=== PATIENT | female | born 1995 | race Caucasian/White ===

== ENCOUNTER 2017-08-20 11:59 | Emergency (ER) | payer OTHER, SELFPAY ==
[2017-08-20 12:00] VITALS: BP 150/116; PULSE 127; RESP 22; TEMP 37.4; O2SAT 100; BMI 37.0
[2017-08-20 12:40] LABS: Absolute Lymphocyte Count 1.27 X10^3/ul (0.83-4.51); Absolute Neutrophil Count 15.5 X10^3/uL (2.0-7.7); Basophil# 0.02 X10^3/uL; Basophil% 0.1 % (0-1); Eosinophil# 0.03 X10^3/uL; Eosinophils% 0.2 % (0-5); Hematocrit 42.6 % (37-47); Hemoglobin 14.4 g/dl (12.0-15.0); Lymphocyte # 1.27 X10^3/ul (4.0); Mean Corp Hgb Conc 33.8 g/gl (32-36); Mean Corpuscular Hgb 28.5 pg (27.0-32.0); Mean Corpuscular Volume 84.4 fL (81-99); Mean Platelet Vol. 10.5 fl (6.2-12.0); Monocyte# 1.21 X10^3/uL; Monocyte% 6.7 % (0-10); Neutrophil # 15.52 X10^3/uL (2.7-7.7); Neutrophil % 85.9 % (47-70); Platelet Count 281 K/mm3 (150-450); RBC Distribution Width CV 12.9 % (11.6-14.6); RBC Distribution Width SD 38.8 fl (35.1-43.9); Red Blood Count 5.05 M/mm3 (4.2-5.4); White Blood Count 18.1 K/mm3 (4.4-11.0)
[2017-08-20 12:43] LABS: POSITIVE COUNT NO; POSITIVE DIFFERENTIAL NO; POSITIVE MORPHOLOGY NO
[2017-08-20 12:50] LABS: Anion Gap 11 (5-15); BUN 11 mg/dL (7-18); BUN/Creat Ratio 12.3 RATIO (10-20); Calcium,Total 9.3 mg/dL (8.5-10.1); Chloride 104 mmol/L (98-107); EST Glomerular Filtration Rate 82 mL/min (>60); Est Glom Filt Rate - Afr Amer 99 mL/min (>60); Estimated Creatinine Clearance 97.23 ml/min; Glucose 95 mg/dL (74-106); Potassium 3.6 mmol/L (3.5-5.1); Sodium Level 137 mmol/L (136-145)
[2017-08-20] MEDS: 0.9% Normal Saline 1,000 ML 1000 ML IV (12:52)
[2017-08-20] MEDS: Morphine 4 MG/ML Syringe IV (12:52)
[2017-08-20] MEDS: Ondansetron ODT 4 MG Tablet PO (12:55)
[2017-08-20 12:56] VITALS: PULSE 107; RESP 15; TEMP 38; O2SAT 99
[2017-08-20 13:04] LABS: Mucous, Urine 0 SEEN /hpf (<or=2+)
[2017-08-20 13:06] LABS: Color, Urine Yellow (Yellow); Glucose, Dipstick Normal (Normal); Ketone-Dipstick 15 mg/dl (Negative); Leukocyte Esterase-Dipstick 25 /ul (Negative); Nitrite-Dipstick Negative (Negative); Occult Blood-Urine 10 /ul (Negative); Protein-Dipstick 15 mg/dl (Negative); Urine Bilirubin Dipstick Negative (Negative); Urine Clarity Clear (Clear); Urine Urobilinogen Normal (Normal)
[2017-08-20 13:11] LABS: Bacteria RARE /hpf (None Seen); Red Blood Cells-Urine 0-5 SEEN /hpf (0-5); Squamous Epithelial Cells - UA 0-5 SEEN /hpf (5-10); White Blood Cells 0-5 SEEN /hpf (0-5)
[2017-08-20 13:22] VITALS: PULSE 112; RESP 15; O2SAT 100
--- NOTE | 2017-08-20 13:56 | CT_ITS ---
STUDY: CT ABDOMEN AND PELVIS WITHOUT CONTRAST REASON FOR EXAM: Female, 22 years old. Low abdominal pain RADIATION DOSAGE (If Supplied By Facility): CTDIvol = ( 19.71 ) mGy, DLP = ( 1137.76 ) mGycm TECHNIQUE: Transaxial images were obtained from the dome of the diaphragm to the symphysis pubis without oral contrast, and without intravenous contrast. Sagittal and coronal images were reconstructed. Individualized dose optimization techniques were used for this CT. COMPARISON: None. FINDINGS: There is a right middle lobe pulmonary nodule measuring 1.2 cm there is focal opacity is slightly nodular appearance in the right middle lobe. The visualized portions of the heart are within normal limits. Normal liver. Normal gallbladder and extrahepatic biliary system. Normal spleen. Normal pancreas. Normal bilateral adrenal glands. Normal right kidney. Normal left kidney. Normal visualized stomach. Normal small intestine. There is moderate stool in the colon. The appendix is vaguely visualized image #132. There are right lower quadrant nonspecific small lymph nodes measuring up to 1.1 cm. Normal abdominal aorta. Normal inferior vena cava. Normal retroperitoneum. Normal urinary bladder. Normal visualized uterus. There is a minimal small umbilical hernia containing fat. Normal osseous structures. CT/Abdomen/Pelvis without Cont IMPRESSION: There is partial visualization of a smudgy nodular infiltrate in the right middle lobe and a smudgy nodular focus. Recommend dedicated CT chest for chest x-ray to evaluate for pneumonia and/or other infiltrative nodular process. Otherwise there is mild constipation. There is no visualized renal ureteral bladder calculi. There is no visualized evidence of appendicitis. There is no free fluid there is no free air. Electronically Signed: Shayy Carlson MD at 14:53 EDT Tel , Service support ,
[2017-08-20] MEDS: AMOXICILLIN 500 MG CAPSULE PO (14:36)
--- NOTE | 2017-08-20 15:23 | ED.DCSUM_ITS ---
- ER Visit Summary Date of Service: 08/20/17 Chief Complaint: [Back and abdomen pain History of Present Illness: The patient is a 22 F [presents to the emergency department with complaint of back and abdomen pain, sore throat, cough, fever, and generally not feeling well. Patient states all her symptoms started this morning. Patient went to the urgent care and was referred to the emergency department. Patient's fever at home up to 103. Patient denies any urinary symptoms. Patient's had no vomiting although she has had nausea. No diarrhea.] Physical Examination: [HEENT-PERRLA, EOMI. Cranial nerves II through XII grossly intact. TMs clear. Mucous membranes moist. Patient has pharyngeal erythema with bilateral tonsillar exudates noted. Patient does have some slightly tender anterior adenopathy. No trismus on exam. Cardiovascular-regular rate and rhythm without murmur or ectopy Lungs-clear to auscultation, chest wall stable without crepitus or subcu emphysema Abdomen-normoactive bowel sounds, soft, nontender, no rebound or rigidity, no peritoneal signs. Extremities-intact ?4, normal range of motion, normal pulses, atraumatic] Test Results: [CBC with differential showed a white count of 18.4, hemoglobin 14.7, hematocrit 43, platelets 281. Chemistries unremarkable other than a slightly depressed potassium at 3.1. Urinalysis was normal. Strep screen was positive. CT scan of the abdomen and pelvis showed partial visualization of smudgy nodular infiltrate right middle lobe and smudgy nodular focus they recommended obtaining CT chest or an x-ray to evaluate for pneumonia or other inflict infiltrative nodular process. Otherwise there is mild constipation. There is no visualized renal or ureteral bladder calculi. There is no visualized evidence of appendicitis. There is no free fluid or free air.] Emergency Department Course and Treatment: [Patient was medicated with amoxicillin and was given a liter normal same fluid bolus. Patient was given 4 mg of morphine and 4 mill grams of Zofran.] Treatment Plan: [At this point I do not feel any further imaging is indicated as patient is not had any significant cough. Patient will be started on antibiotics and I feel patient can follow-up as an outpatient with her primary care physician should respiratory symptoms not resolve.] Patient will be given a prescription for amoxicillin and [place] for pain. Disposition: [Discharged to home in stable condition] Impression: [Strep pharyngitis] This note was generated with Mesh[employer] dictation software. It may contain incorrect words, spelling, and punctuation that were not noted in review of the chart prior to signing ED Disposition - Plan for ED Patient: Chief Complaint: General Illness Referrals: Jett Miller DO [Primary Care Provider] -
--- NOTE | 2017-08-20 15:23 | ED.DEP ---
ED Disposition - Plan for ED Patient: Chief Complaint: General Illness Instructions: ED Strep Pharyngitis Conf Prescriptions: Hydrocodone Bitart/Apap 5-325 [[place] 5MG-325MG] 1 tab PO Q4H PRN PRN 2 Days #10 tab PRN Reason: Pain Amoxicillin 500 mg PO TID #30 tab Referrals: Jett Miller DO [Primary Care Provider] - 3-5 Days
[2017-08-20 15:44] VITALS: BP 115/68; PULSE 99; RESP 18; O2SAT 100
--- NOTE | 2017-08-21 15:43 | ED.RN ---
MOM CALLED IN ASKING FOR ADDITIONAL WORK NOTE. SPOKE TO DR BECKER. DR BECKER ADVISED IT WAS OK TO WRITE WORK EXCUSE UNTIL MONDAY. INFORMED MOM, MOM WILL INTERNAL CONSULTANT NOTE AT TRIAGE DESK.
== END 2017-08-20 15:46 | disposition home or self-care (01) ==
PROVIDERS: Emergency Provider Emergency Medicine; Family Provider Student in an Organized Health Care Education/Training Program; PCP Student in an Organized Health Care Education/Training Program
DX: J02.0 Streptococcal pharyngitis (principal); M54.9 Dorsalgia, unspecified; R10.9 Unspecified abdominal pain; K59.00 Constipation, unspecified
CPT/HCPCS: 74176; 80048; 81001; 85025; 87077; 87880; 96361; 96374; 96375; 99284

== ENCOUNTER 2019-04-16 12:31 | Emergency (ER) | payer OTHER, SELFPAY ==
[2019-04-16 12:32] VITALS: BP 155/98; PULSE 99; RESP 16; TEMP 35.7; BMI 35.4
--- NOTE | 2019-04-16 13:07 | EKG12_ITS ---
Test Reason : DIZZINESS Blood Pressure : / mmHG Vent. Rate : 063 BPM Atrial Rate : 063 BPM P-R Int : 136 ms QRS Dur : 084 ms QT Int : 422 ms P-R-T Axes : 013 008 005 degrees QTc Int : 431 ms Normal sinus rhythm with sinus arrhythmia Nonspecific T wave abnormality Abnormal ECG Confirmed by JOURDAN ODEN, BRODERICK ([id number]), editor farm journal TAMIKO ACOSTA ([id number]) on 04/19/2019 11:39:13 AM Referred By: ANGIE Confirmed By:CEE SOLIMAN MD
--- NOTE | 2019-04-16 13:08 | ED.VIS.GEN ---
History of Present Illness Chief Complaint: Dizziness Informant: Patient Narrative: Patient reports intermittent episodes of lightheadedness/near syncope. She originally uses the word dizziness to describe her feelings. She states that Monday she was walking through the [employer] and she got very nauseated very warm and then lightheaded. Eventually the symptoms abated. Yesterday she eventually had one episode of vomiting. Describes the vomiting as bilious in nature. She states that she has not felt her heart beating very irregularly during the episodes. She says again is very episodic and in between she seems okay. She has had a runny nose and cough for the past several weeks. No fevers. No diarrhea. She is otherwise been eating and drinking okay. No rashes. Past Medical History - Allergies and Home Meds Allergies/Adverse Reactions: Allergies No Known Allergies Allergy (Verified 04/16/19 12:34) Primary Care Physician: Jett Miller DO [Primary Care Provider] - Smoking Status: Never smoker Review of Systems General: Denies: Chills, Fever, Sweats Eyes: Denies: Visual changes - bilaterally, Diplopia ENT: Reports: Rhinorrhea. Denies: Sore throat Cardiovascular: Reports: - - Lightheadedness. Denies: Chest pain, Palpitations, Heart racing Respiratory: Reports: Cough. Denies: Dyspnea, Dyspnea on exertion Gastrointestinal: Reports: Nausea, Vomiting. Denies: Abdominal pain, Diarrhea, Melena, Hematochezia Genitourinary: Denies: Dysuria, Hematuria, Frequency Musculoskeletal: Denies: Back pain, Extremity Pain Skin: Denies: Rash, Wounds Neurological: Denies: Headache, Weakness, Numbness Physical Exam Vital Signs/Narrative: Vital Signs Temp Pulse Resp BP 04/16/19 12:32 96.2 F L 99 16 155/98 H Diagnostic/Tx/Re-eval - EKG Initial EKG Interpretation: Sinus Rhythm - EKG shows a sinus rhythm with sinus arrhythmia rate of 63. - Medical Decision Making Chest x-ray shows a normal mediastinal silhouette. Basic labs were normal. She had no events on the monitor. This sounds like a vagal near syncope. However the stimulus is not clear. She always has nausea associated with this lightheadedness. This point patient be discharged home with instructions to follow-up with her PCP. We talked about possibilities of further work-up including occluding Holter monitor and echocardiogram. ED Disposition - Plan for ED Patient: Disposition: Home or Assisted Living Diagnosis: Vasovagal near syncope Instructions: NEAR SYNCOPE, Vasovagal Referrals: Jett Miller DO [Primary Care Provider] - As soon as possible
--- NOTE | 2019-04-16 13:10 | NURSING ---
NO OLD EKGS
[2019-04-16 13:22] LABS: Absolute Lymphocyte Count 1.91 X10^3/uL (0.83-4.51); Absolute Neutrophil Count 1.9 X10^3/uL (2.0-7.7); Basophil# 0.01 X10^3/uL; Basophil% 0.2 % (0-1); Eosinophil# 0.04 X10^3/uL; Eosinophils% 0.9 % (0-5); Hemoglobin 13.5 g/dL (12.0-15.0); Lymphocyte # 1.91 X10^3/ul (4.0); Lymphocyte % 44.9 % (19-41); Mean Corp Hgb Conc 32.9 g/dL (32-36); Mean Corpuscular Volume 84.9 fL (81-99); Mean Platelet Vol. 10.2 fl (6.2-12.0); Monocyte# 0.36 X10^3/uL; Monocyte% 8.5 % (0-10); NRBC Flagged by Analyzer 0 % (0-5); Neutrophil # 1.92 X10^3/uL (2.7-7.7); Neutrophil % 45.3 % (47-70); Platelet Count 263 K/mm3 (150-450); RBC Distribution Width CV 12.4 % (11.6-14.6); RBC Distribution Width SD 38.2 fl (35.1-43.9); Red Blood Count 4.83 M/mm3 (4.2-5.4); White Blood Count 4.3 K/mm3 (4.4-11.0)
[2019-04-16 13:30] LABS: Internal QC Validated? YES +Cl - CLEAR BKGD; Pregnancy, Serum, hCG Quali. NEGATIVE Negative
[2019-04-16 13:32] VITALS: BP 123/80; PULSE 60; RESP 16; O2SAT 97
[2019-04-16 13:39] LABS: ALB/GLOB Ratio 0.9 RATIO (0.9-2.4); AST(SGOT) 23 U/L (15-37); Alanine Aminotransfer ALT/SGPT 29 U/L (13-56); Albumin, Serum 3.4 g/dL (3.2-5.0); Alkaline Phosphatase 54 U/L (45-117); Anion Gap 7 (5-15); BUN 11 mg/dL (7-18); BUN/Creat Ratio 14.6 RATIO (10-20); Calcium,Total 8.6 mg/dL (8.5-10.1); Chloride 108 mmol/L (98-107); Creatinine, Serum 0.75 mg/dL (0.55-1.02); EST Glomerular Filtration Rate 99 mL/min (>60); Est Glom Filt Rate - Afr Amer 120 mL/min (>60); Estimated Creatinine Clearance 119.83 ml/min; Globulin 3.9 g/dL (2.2-4.2); Glucose 83 mg/dL (74-106); Potassium 3.7 mmol/L (3.5-5.1); Protein, Total 7.3 g/dL (6.4-8.2); Sodium Level 141 mmol/L (136-145)
--- NOTE | 2019-04-16 13:46 | RAD_ITS ---
STUDY: X-RAY CHEST REASON FOR EXAM: Female, 23 years old. NEAR SYNCOPAL, DIZZINESS AND SOB TECHNIQUE: PA and lateral views of the chest. COMPARISON: None. FINDINGS: EKG electrodes are seen. The lungs are clear and expanded. Azygos lobe. This is a normal variant. There is no demonstrated pleural abnormality. Normal size heart. Normal mediastinum and rimma. Normal visualized pulmonary arteries. Normal visualized aortic arch and descending thoracic aorta. Normal visualized thoracic spine. Normal visualized ribs, clavicles, and shoulders. There is no demonstrated abnormality of the visualized soft tissue structures of the upper abdomen. RAD/Chest PA and Lateral IMPRESSION: Normal x-ray examination of the chest. Electronically Signed: Barrera Monge, at 14:01 EDT , Service support ,
[2019-04-16 14:51] VITALS: BP 125/91; PULSE 75; RESP 19; O2SAT 95
== END 2019-04-16 14:58 | disposition home or self-care (01) ==
PROVIDERS: Emergency Provider Emergency Medicine; PCP Student in an Organized Health Care Education/Training Program
DX: R55 Syncope and collapse (principal); J34.89 Other specified disorders of nose and nasal sinuses; R05 Cough
CPT/HCPCS: 71046; 80053; 84484; 84703; 85025; 93005; 99284; A4216

== ENCOUNTER 2020-10-07 22:42 | Emergency (ER) | payer OTHER, SELFPAY ==
[2020-10-07 22:43] VITALS: BP 121/78; PULSE 107; RESP 16; TEMP 36.9; O2SAT 98; BMI 35.4
--- NOTE | 2020-10-07 23:27 | EKG12_ITS ---
Test Reason : DYSRHYTHMIA Blood Pressure : / mmHG Vent. Rate : 088 BPM Atrial Rate : 088 BPM P-R Int : 134 ms QRS Dur : 086 ms QT Int : 344 ms P-R-T Axes : 020 013 010 degrees QTc Int : 416 ms Normal sinus rhythm Nonspecific T wave abnormality Abnormal ECG Confirmed by JOURDAN ODEN, BRODERICK ([id number]), assignment desk editor LOUIE SILVEIRA ([id number]) on 10/08/2020 1:00:58 PM Referred By: CRISTIAN Confirmed By:CEE SOLIMAN MD
[2020-10-07 23:43] LABS: Absolute Lymphocyte Count 0.78 X10^3/uL (0.83-4.51); Absolute Neutrophil Count 4.6 X10^3/uL (2.0-7.7); Basophil# 0.02 X10^3/uL; Basophil% 0.3 % (0-1); Eosinophil# 0.01 X10^3/uL; Eosinophils% 0.2 % (0-5); Hematocrit 44.3 % (37-47); Hemoglobin 14.9 g/dL (12.0-15.0); Lymphocyte # 0.78 X10^3/ul (0.83-4.51); Lymphocyte % 12.8 % (19-41); Mean Corp Hgb Conc 33.6 g/dL (32-36); Mean Corpuscular Hgb 28.2 pg (27.0-32.0); Mean Corpuscular Volume 83.9 fL (81-99); Mean Platelet Vol. 10.5 fl (6.2-12.0); Monocyte# 0.73 X10^3/uL; Monocyte% 11.9 % (0-10); NRBC Flagged by Analyzer 0 % (0-5); Neutrophil # 4.56 X10^3/uL (2.7-7.7); Neutrophil % 74.6 % (47-70); Platelet Count 284 K/mm3 (150-450); RBC Distribution Width CV 12.5 % (11.6-14.6); RBC Distribution Width SD 38.3 fl (35.1-43.9); Red Blood Count 5.28 M/mm3 (4.2-5.4); White Blood Count 6.1 K/mm3 (4.4-11.0)
[2020-10-07 23:45] VITALS: BP 113/73; BP 116/78; BP 90/45; PULSE 107; PULSE 93; PULSE 96
[2020-10-08 00:01] LABS: Anion Gap 7 (5-15); BUN 9 mg/dL (7-18); BUN/Creat Ratio 9.2 RATIO (10-20); Calcium,Total 9.4 mg/dL (8.5-10.1); Chloride 105 mmol/L (98-107); Creatinine, Serum 0.97 mg/dL (0.55-1.02); EST Glomerular Filtration Rate 73 mL/min (>60); Est Glom Filt Rate - Afr Amer 88 mL/min (>60); Estimated Creatinine Clearance 87.88 ml/min; Glucose 92 mg/dL (74-106); Potassium 3.7 mmol/L (3.5-5.1); Sodium Level 136 mmol/L (136-145); Troponin-I HS 3 pg/mL (3.0-54.0)
[2020-10-08 00:04] LABS: Mucous, Urine 0 SEEN /hpf (<or=2+); Red Blood Cells-Urine 0 SEEN /hpf (0-5)
[2020-10-08 00:06] LABS: Color, Urine Yellow (Yellow); Glucose, Dipstick Normal (Normal); Ketone-Dipstick 5 mg/dl (Negative); Leukocyte Esterase-Dipstick 500 /ul (Negative); Nitrite-Dipstick Negative (Negative); Occult Blood-Urine 10 /ul (Negative); Protein-Dipstick 30 mg/dl (Negative); Urine Bilirubin Dipstick Negative (Negative); Urine Clarity Sl. Cloudy (Clear); Urine Urobilinogen 4 mg/dl (Normal)
[2020-10-08 00:07] LABS: Internal QC Validated? YES +Cl - CLEAR BKGD; Pregnancy, Urine Negative Negative
[2020-10-08 00:09] LABS: D-Dimer Quantitative (DVT/PE) <= 0.27 FEU/ug/m (0.27-0.49)
[2020-10-08 00:21] LABS: Squamous Epithelial Cells - UA 10-25 SEEN /hpf (5-10); White Blood Cells 10-25 SEEN /hpf (0-5)
[2020-10-08 00:22] LABS: Bacteria 1+ /hpf (None Seen)
--- NOTE | 2020-10-08 00:57 | EX.ED.DYSGE1 ---
HPI History of Present Illness Chief Complaint: Syncope Associated Symptoms Associated Symptoms ED: cough Narrative Narrative: Patient has been having myalgias subjective fevers and chills since yesterday. Today she got up to get in the shower, she works veterinary hospital shift lead, and she passed out. She does not remember having any prodromal symptoms. She passed out in the shower and fell onto her left hip which is sore but she has been able to ambulate since then without feeling lightheaded. She feels malaise. She denies having cough or shortness of breath or diarrhea. She was not vaccinated for Covid. PFSH PFSH no medical history Home Medications NK 10/07/20 [History Last Taken Unknown] Allergy/AdvReac Type Severity Reaction Status Date / Time No Known Allergies Allergy Verified 10/07/20 22:46 Social History Smoking Status: Never smoker ROS ROS ED Constitutional Constitutional ED: Reports body ache(s), chills, fatigue, fever(s) and malaise; Denies headache(s) Eyes Eyes: Denies change in vision or diplopia ENT ENT ED: Denies rhinorrhea or sore throat Cardiovascular Cardiovascular: Denies chest pain or palpitations Respiratory/Chest Respiratory/Chest: Denies cough, dyspnea or dyspnea on exertion Gastrointestinal Gastrointestinal: Denies abdominal pain, diarrhea, nausea or vomiting Genitourinary Genitourinary ED: Reports other Details: Patient had a mild menstrual cycle 3 days ago, bleeding is stopped, she states that was the normal time for her expected cycle. ; Denies dysuria or hematuria Musculoskeletal Musculoskeletal: Reports myalgias and other Details: Soreness left hip ; Denies back pain or neck pain Integumentary Denies abscess or rash Neurologic Neurologic: Denies headache(s), paresthesias or weakness Psychiatric Psychiatric: Denies anxiety or suicidal thoughts EXAM Physical Exam Const Vital Signs: 10/07/20 22:43 10/07/20 23:45 Temperature 98.5 F Temperature Source Temporal Pulse Rate 107 H Pulse Rate [Lying] 93 Pulse Rate [Sitting] 96 Pulse Rate [Standing] 107 H Respiratory Rate 16 Blood Pressure 121/78 H Blood Pressure [Lying] 116/78 Blood Pressure [Sitting] 113/73 Blood Pressure [Standing] 90/45 L Blood Pressure Mean 92 Blood Pressure Mean [Lying] 90 Blood Pressure Mean [Sitting] 86 Blood Pressure Mean [Standing] 60 Pulse Ox 98 Oxygen Delivery Method Room Air Positive well nourished and well developed Constitutional Narrative: Malaised-appearing, no distress General Appearance ED: well developed and NAD HEENT Reports moist mucous membranes normocephalic and atraumatic Eyes PERRL and EOMs intact bilaterally Neck full ROM, no lymphadenopathy and supple Resp normal respiratory effort and clear to auscultation bilaterally Cardio regular rate, regular rhythm and no murmurs Rate: Negative for tachycardic GI non-tender and non-distended Auscultation: normoactive bowel sounds Palpation: soft Back/Spine no CVA tenderness General Back: other FROM Extremity normal to inspection and no calf tenderness General Extremety ED: Negative for edema, pulses abnormal or tenderness General Extremity: Negative for edema or pulses abnormal Neuro oriented x3, CN's II-XII intact bilaterally and no sensory deficits noted Sensorium / Orientation: awake and alert Motor Exam: strength 5/5 throughout Skin no rashes or lesions noted and no wounds MDM MDM MDM Narrative Medical decision making narrative: Patient's tests returned unremarkable with the following exceptions: Urinalysis showing 500 leukocyte esterase and pyuria without urinary symptoms, Covid positive. Of note her EKG, troponin, and D-dimer were all negative/normal. Patient's orthostatics were officially negative, but borderline positive. She was also offered some IV fluids, but they declined and she feels well enough to stand and walk and will drink plenty of fluids at home. Her urine will be sent for culture and treated only if it returns abnormal/positive. She is given appropriate instructions with regards to Covid and reasons to return. It was noted at discharge that the patient's BMI is 35.4 making her a candidate for monoclonal antibody infusion for COVID-19 for which she was referred. Lab Data Attestation: I reviewed the patient's lab results. Labs: Laboratory Results - last 24 hr 10/07/20 10/07/20 10/07/20 23:12 23:12 23:50 WBC 6.1 RBC 5.28 Hgb 14.9 Hct 44.3 MCV 83.9 MCH 28.2 MCHC 33.6 RDW Std Deviation 38.3 RDW Coeff of Mario 12.5 Plt Count 284 MPV 10.5 Immature Gran % (Auto) 0.200 Neut % (Auto) 74.6 H Lymph % (Auto) 12.8 L [place] % (Auto) 11.9 H Eos % (Auto) 0.2 Baso % (Auto) 0.3 Absolute Neuts (auto) 4.6 Absolute Lymphs (auto) 0.78 L Nucleated RBC % 0 D-Dimer Quant (PE/DVT) <= 0.27 Sodium 136 Potassium 3.7 Chloride 105 Carbon Dioxide 24.0 Anion Gap 7 BUN 9 Creatinine 0.97 Estim Creat Clear Calc 87.88 Est GFR (MDRD) Af Amer 88 Est GFR (MDRD) Non-Af 73 BUN/Creatinine Ratio 9.2 L Glucose 92 Calcium 9.4 Troponin I High Sens 3 Urine Color Urine Clarity Urine pH Ur Specific [place] Urine Protein Urine Glucose (UA) Urine Ketones Urine Occult Blood Urine Nitrite Urine Bilirubin Urine Urobilinogen Ur Leukocyte Esterase Urine RBC Urine WBC Ur Squamous Epith Cells Urine Bacteria Urine Mucus Urine Test 10/08/20 00:00 WBC RBC Hgb Hct MCV MCH MCHC RDW Std Deviation RDW Coeff of Mario Plt Count MPV Immature Gran % (Auto) Neut % (Auto) Lymph % (Auto) [place] % (Auto) Eos % (Auto) Baso % (Auto) Absolute Neuts (auto) Absolute Lymphs (auto) Nucleated RBC % D-Dimer Quant (PE/DVT) Sodium Potassium Chloride Carbon Dioxide Anion Gap BUN Creatinine Estim Creat Clear Calc Est GFR (MDRD) Af Amer Est GFR (MDRD) Non-Af BUN/Creatinine Ratio Glucose Calcium Troponin I High Sens Urine Color Yellow Urine Clarity Sl. Cloudy Urine pH 7.0 Ur Specific Dick[place] 1.010 Urine Protein 30 H Urine Glucose (UA) Normal Urine Ketones 5 H Urine Occult Blood 10 H Urine Nitrite Negative Urine Bilirubin Negative Urine Urobilinogen 4 H Ur Leukocyte Esterase 500 H Urine RBC 0 SEEN Urine WBC 10-25 SEEN Ur Squamous Epith Cells 10-25 SEEN Urine Bacteria 1+ Urine Mucus 0 SEEN Urine Test Negative EKG Initial EKG: Attestation: I personally reviewed and interpreted this EKG as follows: Interpretation: Sinus Rhythm, No Acute Injury Pattern and Non-Specific ST Changes (precord) Discharge Plan Triage Chief Complaint: Syncope ED Provider: Bala Sargent Dx/Rx/DC Orders Clinical Impression: Syncope, COVID-19, Contusion of hip, left Instructions: Coronavirus Disease 2019 (COVID-19): Caring for Yourself or Others, ED - COVID Monoclonal AB Infusion ... Prescriptions: No Action NK RF: 0 Other Ambulatory Orders: COVID Outpatient Monoclonal Antibody Referral (Routine) Location: None Selected Ordered By: Dr. Bala Sargent Primary Care Provider: Jett Miller Referrals: Jett Miller DO [Primary Care Provider] - As Needed Activity Restrictions/Additional Instructions: You were referred for possible monoclonal antibody infusion therapy to prevent Covid from progressing to moderate-severe disease requiring hospitalization. If you are a candidate you will be contacted to get the infusion as an outpatient it is not given in the emergency department. Try to get a home portable pulse oximeter and closely watch her oxygen levels periodically. If you stay below 90% for more than a minute or so, and/or you are feeling like your breathing is getting worse, return to the emergency department for further evaluation. Disposition Disposition: Home, Self Care
[2020-10-08 01:12] VITALS: BP 114/60; PULSE 82; RESP 16; O2SAT 96
== END 2020-10-08 01:13 | disposition home or self-care (01) ==
PROVIDERS: Emergency Provider Emergency Medicine; PCP Student in an Organized Health Care Education/Training Program
DX: U07.1 COVID-19 (principal); R55 Syncope and collapse; S70.02XA Contusion of left hip, initial encounter; W18.2XXA Fall in (into) shower or empty bathtub, initial encounter; Y93.E1 Activity, personal bathing and showering; Y92.9 Unspecified place or not applicable
CPT/HCPCS: 80048; 81001; 81025; 84484; 85025; 85379; 87086; 87088; 87426; 93005; 99283; A4216

== ENCOUNTER 2020-11-22 22:29 | Emergency (ER) | payer OTHER, SELFPAY ==
[2020-11-22 22:29] VITALS: BP 140/81; PULSE 66; RESP 16; TEMP 36.1; O2SAT 99; BMI 36.0
--- NOTE | 2020-11-22 22:58 | RAD_ITS ---
STUDY: X-RAY - CERVICAL SPINE REASON FOR EXAM: Female, 25 years old. Injury/Pain TECHNIQUE: 3 view(s) of the cervical spine were obtained. COMPARISON: None FINDINGS: Normal anterior atlantoaxial articulation. Normal odontoid process. There is reversal of the normal cervical lordosis. Normal vertebral bodies and endplates. Normal disc space heights. Normal visualized intervertebral neuroforamina. The soft tissue structures are unremarkable. RAD/Cerv Spine 2 or 3 Views IMPRESSION: No acute findings. Electronically Signed: Oleg Christina DO at 23:13 EDT Tel , Service support ,
[2020-11-22] MEDS: Morphine 4 MG/ML Syringe IM (22:59)
--- NOTE | 2020-11-22 23:26 | EDS_ITS ---
HPI History of Present Illness Chief Complaint: Other, Pain/Inj Informant: patient Onset/Context/Timing Onset: Yesterday Mechanism/Context: Fall Quality of Pain: Sharp and Aching Location: Neck and upper thoracic Worsened by: Movement Relieved by: Nothing Associated Symptoms Associated Symptoms: Negative for Parasthesias, Weakness, Loss of function, Inability to ambulate, Loss of consciousness and Amnesia Narrative Narrative: Patient presents with neck pain that began after a fall yesterday. Patient states her pain is worse today. Patient states she was running when she fell. Patient states the pain is mainly over her neck and upper back and into both shoulders. Patient describes the pain is constant aching but sharp at times. Patient states her pain is worse with any movement. Patient denies any paresthesias or weakness. Patient denies any loss of consciousness with the fall. Patient does admit to a headache in the occipital area. PFSH PFSH Medical History no medical history no medical history Home Medications cyclobenzaprine 10 mg PO QHS PRN PRN #5 tablet 11/22/20 [Rx Last Taken Unknown] hydrocodone-acetaminophen 1 tab PO Q6H PRN PRN 3 Days #10 tablet 11/22/20 [Rx Last Taken Unknown] Allergy/AdvReac Type Severity Reaction Status Date / Time No Known Allergies Allergy Verified 11/22/20 22:31 Surgical History no surgical history no surgical history Social History Smoking Status: Never smoker ROS ROS ED Constitutional Constitutional ED: Denies chills or fever(s) Eyes Eyes: Denies blurry vision or change in vision ENT ENT ED: Denies rhinorrhea or sore throat Cardiovascular Cardiovascular: Denies chest pain or palpitations Respiratory/Chest Respiratory/Chest: Denies cough or dyspnea Gastrointestinal Gastrointestinal: Denies nausea or vomiting Genitourinary Genitourinary ED: Denies dysuria or hematuria Musculoskeletal Musculoskeletal: Reports back pain and neck pain Integumentary Denies abscess or rash Neurologic Neurologic: Reports headache(s); Denies weakness Allergic/Immunologic Allergic/Immunologic ED: Denies mouth swelling or urticaria EXAM Physical Exam Const Vital Signs: 11/22/20 22:29 Temperature 96.9 F L Temperature Source Temporal Pulse Rate 66 Respiratory Rate 16 Blood Pressure 140/81 H Blood Pressure Mean 100 Pulse Ox 99 Positive well nourished, well developed and obese General Appearance ED: well developed Nutritional Appearance: obese Neck Neck Narrative: There is some spasm of the cervical paraspinal muscles bilaterally. There is midline tenderness. There is no bony crepitance or step- off. There is no edema or ecchymosis. General: tenderness Back/Spine Back/Spine Narrative: There is also tenderness over the upper thoracic spine and paraspinal muscles. There is no bony crepitance or step-off. Range of motion was limited in all motions of the upper thoracic spine secondary to pain. Strength is 5/5 bilateral knee upper and lower extremities. There are no sensory deficits. Thoracic Spine / Upper Back: thoracic spinal tenderness T1, T2, T3 and T4 Neuro oriented x3, CN's II-XII intact bilaterally, moves all extremities, no focal motor deficits and no sensory deficits noted Jackson Coma Scale: document GCS findings Spontaneous Obeys Commands Oriented 15 Sensorium / Orientation: alert Psych mental status grossly normal MDM MDM MDM Narrative Medical decision making narrative: Patient was given a dose of morphine here. X -rays of the cervical spine were obtained. There are 3 views. On my interpretation, there is no acute fracture or dislocation. There is no soft tissue swelling. Radiologist also interpreted the x-rays and agrees. Patient was given a prescription for [place] and Flexeril. Patient was instructed to use ice to the area. Patient was instructed to follow-up with her primary care physician in 3 to 5 days. Patient understood and was agreeable with the plan. All questions were answered. Radiography Diagnostic Testing: Clinical Impression(s) from Imaging Studies Cervical Spine X-Ray 11/22/20 22:58 IMPRESSION: No acute findings. Electronically Signed: Oleg Christina DO at 23:13 EDT Tel , Service support , Discharge Plan Triage Chief Complaint: Other, Pain/Inj ED Provider: Maikel Bellamy Dx/Rx/DC Orders Clinical Impression: Acute cervical myofascial strain Instructions: ED Neck Sprain or Strain Prescriptions: New cyclobenzaprine [cyclobenzaprine] 10 MG tablet 10 mg PO QHS PRN PRN (Reason: Muscle Spasm) Qty: 5 RF: 0 hydrocodone-acetaminophen [hydrocodone-acetaminophen] 1 TABLET tablet 1 tab PO Q6H PRN PRN (Reason: Pain) 3 Days Qty: 10 RF: 0 Primary Care Provider: Jett Miller Referrals: Jett Miller DO [Primary Care Provider] - 3-5 Days Disposition Disposition: Home, Self Care
[2020-11-22 23:55] VITALS: BP 128/67; PULSE 87; RESP 18
== END 2020-11-22 23:57 | disposition home or self-care (01) ==
PROVIDERS: Emergency Provider Emergency Medicine; PCP Student in an Organized Health Care Education/Training Program
DX: S16.1XXA Strain of muscle, fascia and tendon at neck level, initial encounter (principal); W19.XXXA Unspecified fall, initial encounter; Y93.02 Activity, running; Y92.9 Unspecified place or not applicable; E66.9 Obesity, unspecified; Z68.36 Body mass index [BMI] 36.0-36.9, adult
CPT/HCPCS: 72040; 96372; 99282

== ENCOUNTER 2022-04-15 00:02 | Emergency (ER) | payer OTHER, SELFPAY ==
[2022-04-15 00:03] VITALS: BP 141/89; PULSE 72; RESP 16; TEMP 36.7; O2SAT 100; BMI 33.5
--- NOTE | 2022-04-15 01:27 | ED.VIS.DENTA ---
HPI History of Present Illness Chief Complaint: Dental Narrative Narrative: 26-year-old female presenting with right-sided maxillary dental pain and right-sided facial swelling. She notes that she has a cracked tooth in this region. She has a dental follow-up next Monday. She states the pain is increasing. She now has facial swelling. She has tried Tylenol and ibuprofen without relief. She has now developed some irritation to the left lower gums she wants to have assessed as well. No trouble breathing or swallowing. No fevers. No nausea or vomiting. [facility] Medical History Hx of migraines Home Medications cyclobenzaprine 10 mg tablet 10 mg PO QHS PRN PRN Muscle Spasm #5 TABLETS 11/22/20 [Rx Last Taken Unknown] hydrocodone-acetaminophen 5-325mg 5mg-325mg 1 tab PO Q6H PRN PRN Pain 3 days #10 TABLETS 11/22/20 [Rx Last Taken Unknown] amoxicillin 875 mg-potassium clavulanate 125 mg tablet 1 tab PO BID #20 tabs 04/15/22 [Rx Last Taken Unknown] hydrocodone-acetaminophen 5-325mg 5mg-325mg 1 tab PO Q6H 3 days #12 TABLETS 04/15/22 [Rx Last Taken Unknown] Allergy/AdvReac Type Severity Reaction Status Date / Time No Known Allergies Allergy Verified 04/15/22 00:06 Social History Smoking Status: Never smoker ROS [facility] ED Constitutional Constitutional ED: Denies chills, fever(s) or sweats Eyes Eyes: Denies blurry vision or change in vision ENT ENT ED: Reports other Details: Dental pain ; Denies ear pain Cardiovascular Cardiovascular: Denies chest pain, palpitations or racing heartbeat Respiratory/Chest Respiratory/Chest: Denies cough, dyspnea or sputum Gastrointestinal Gastrointestinal: Denies abdominal pain, constipation, diarrhea, nausea or vomiting Genitourinary Genitourinary ED: Denies dysuria, hematuria or urinary frequency Musculoskeletal Musculoskeletal: Denies arthralgias, myalgias or neck pain Integumentary Denies abscess, Abrasions or rash Neurologic Neurologic: Denies headache(s), paresthesias or weakness Psychiatric Psychiatric: Denies anxiety, depression, suicidal ideation or suicidal thoughts Endocrine Endocrinology: Denies polydipsia or polyuria EXAM Physical Exam Const Vital Signs: 04/15/22 00:03 Temperature 98.0 F Temperature Source Temporal Pulse Rate 72 Respiratory Rate 16 Blood Pressure 141/89 H Blood Pressure Mean 106 Pulse Ox 100 Oxygen Delivery Method Room Air Positive well nourished General Appearance ED: NAD HEENT normocephalic Face and Sinus: facial edema right Nose: external nose normal Mouth ED: Yes lips normal, Yes tongue normal, Yes salivary gland normal, No drooling, No trismus and No restricted motion Mouth: lips normal, tongue normal, salivary gland normal, No drooling, No trismus and No restricted motion Teeth and Gingiva: abnormal tooth and associated gingiva Positive for tenderness (Tooth #15 tender to percussion.) and gingiva abnormal Positive for gingival edema (Small area of edema located adjacent to tooth #35. No fluctuance. No drainage.) Eyes PERRL Neck no lymphadenopathy and supple General: normal visual inspection; Negative for anterior neck swelling or submandibular swelling Resp normal respiratory effort Neuro oriented x3 and CN's II-XII intact bilaterally Sensorium / Orientation: alert Motor Exam: strength 5/5 throughout Psych mental status grossly normal MDM MDM MDM Narrative Medical decision making narrative: Patient with dental pain. I suspect she has an apical infection at tooth #15. The gingiva around this area looks looks okay however. The area of concern on the gingiva is adjacent to tooth #35. There is no percussion tenderness to this tooth. There is a small area which is red and tender but without fluctuance. We will start the patient on Augmentin. She is also given Smiley for pain. Return precautions discussed. Impression: 1. Dental infection 2. Gingivitis Discharge Plan Triage Chief Complaint: Dental ED Provider: Bruce Mercado Dx/Rx/DC Orders Instructions: ED Dental Pain Prescriptions: New amoxicillin-pot clavulanate 875-125 mg tablet 1 tab PO BID Qty: 20 0RF hydrocodone-acetaminophen 5-325 mg tablet 1 tab PO Q6H 3 Days Qty: 12 0RF No Action cyclobenzaprine [cyclobenzaprine] 10 MG tablet 10 mg PO QHS PRN PRN (Reason: Muscle Spasm) Qty: 5 0RF hydrocodone-acetaminophen [hydrocodone-acetaminophen] 1 TABLET tablet 1 tab PO Q6H PRN PRN (Reason: Pain) 3 Days Qty: 10 0RF Stand Alone Forms: ED Work / School Excuse Primary Care Provider: Jett Miller Referrals: Jett Miller DO [Primary Care Provider] - Disposition Disposition: Home, Self Care
== END 2022-04-15 01:58 | disposition home or self-care (01) ==
PROVIDERS: Emergency Provider Student in an Organized Health Care Education/Training Program; PCP Student in an Organized Health Care Education/Training Program; Visit Provider Student in an Organized Health Care Education/Training Program
DX: K04.7 Periapical abscess without sinus (principal); K05.10 Chronic gingivitis, plaque induced
CPT/HCPCS: 99282

== ENCOUNTER 2022-05-30 09:56 | Emergency (ER) | payer OTHER, SELFPAY ==
[2022-05-30 09:57] VITALS: BP 126/82; PULSE 68; RESP 16; TEMP 36.4; O2SAT 98; BMI 34.4
--- NOTE | 2022-05-30 10:07 | EX.ED.DYSGE1 ---
HPI History of Present Illness Chief Complaint: Dizziness Narrative Narrative: 26-year-old female here for dizziness, nausea, shortness of breath. The patient states symptoms started feeling this way this morning. 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 She notes she ate pretzels, vitamin water and started feeling better. She states she did not eat breakfast this morning. She does note she feels short of breath now. The patient states this occurred just prior to arrival. The dizziness and nausea have improved. States dizziness is worse upon standing. Denies any visual changes, gait abnormality or ataxia. Denies any headache or recent head trauma. Denies any recent bleeding diathesis. Denies any chest pain or palpitations. Denies any recent drug use. The patient denies recent surgery in the last 4 weeks or immobilization in the last 3 days, denies previous diagnosis of DVT or PE, hemoptysis, unilateral leg swelling or malignancy with treatment the last 6 months. No estrogen use noted. PFSH PFS Medical History Hx of migraines Home Medications topiramate 25 mg tablet 25 mg PO DAILY 05/30/22 [History Last Taken Unknown] Allergy/AdvReac Type Severity Reaction Status Date / Time No Known Allergies Allergy Verified 05/30/22 10:00 Social History Smoking Status: Never smoker ROS ROS ED ROS Narrative Denies Constitutional: Denies fever HEENT: Denies sore throat Neck: Denies neck pain Cardiovascular: Denies chest pain, syncope Respiratory: Endorses shortness of breath GI: Denies vomiting or abdominal pain, endorses nausea : Denies changes in urinary habits Musculoskeletal: Denies muscle or joint pain Neurologic: Denies numbness weakness or loss of sensation, endorses dizziness initially that is since resolved, endorses upon standing. Denies dizziness at rest on my assessment Skin denies rash EXAM Physical Exam Narrative Exam Narrative: Nursing triage notes reviewed, Vital signs reviewed Constitutional: please see mdm HENT: MMM Eyes: Pupils equal round and reactive to light, Extraocular muscles intact Neck: No stridor, no JVD, full neck ROM Lungs: Clear to auscultation, No wheezing or rales. No increased work of breathing, no conversational dyspnea, no accessory muscle use, no nasal flaring. No respiratory distress noted Heart: Regular rate and rhythm, No murmurs, No rubs and No gallops, 2+ distal pulses (radial, femoral, posterior tibial) in all extremities Abdomen: Soft, there is no tenderness, rigidity, rebound or guarding, no obvious peritoneal signs, no palpable pulsatile abdominal masses, no auscultated abdominal bruit : No CVAT Extremities: No edema Neuro: Alert and oriented x3, neuro exam at baseline, cranial nerves II through XII are intact. No pain with extraocular muscle movement. There is negative test of skew. Normal speech. 5 of 5 strength in upper and lower extremities in flexion extension. Intact sensation to light touch in upper and lower extremity dermatomes. No truncal or extremity ataxia (intact coordination with finger-nose, heel-liao). No dysdiadochokinesia. Normal gait. 2+ reflexes. No meningeal signs. Negative Babinski. NIH of 0. No nystagmus (vertical horizontal or otherwise) Skin: No rash or lesions noted Const Vital Signs: 05/30/22 09:57 05/30/22 10:32 Temperature 97.6 F L Temperature Source Temporal Pulse Rate 68 Respiratory Rate 16 Respiratory Effort Normal Respiratory Pattern Normal Blood Pressure 126/82 H Blood Pressure Mean 96 Pulse Ox 98 Oxygen Delivery Method Room Air MDM MDM MDM Narrative Medical decision making narrative: Chief Complaint: Shortness of breath, nausea, dizziness External records reviewed: No recent cardiac catheterization, stress test or echocardiogram noted in the chart MDM: Patient was hemodynamically stable, afebrile, nontoxic-appearing. Patient no focal neurologic deficits to suggest posterior circulation CVA. Lungs were clear no focal cardiopulmonary abnormalities. I considered the following differential diagnosis: Viral illness, migraine headache, posterior circulation CVA, dehydration, pneumonia, PE, ACS, arrhythmia I considered obtaining advanced imaging of the brain however patient no focal deficits, no dizziness at rest, NIH of 0 low suspicion for posterior circulation CVA causing dizziness. I also considered pulmonary embolism as potential cause of patient's shortness of breath however she had a low risk Wells score, PERC negative which makes pulmonary embolism exceedingly low. I would low special for pulmonary embolism and as such did not obtain a CTA of the chest or D-dimer for further restratification. I obtained a broad lab and imaging work-up to further elucidate the etiology patient complaints. I treat the patient medically with Zofran and 1 L normal saline. The patient's labs and images were remarkable for no evidence of severe systemic inflammation, severe anemia, electrolyte abnormalities, dehydration, myocardial ischemia, . Chest x-ray without evidence of pneumonia, cardiomegaly, heart failure, pneumothorax. No clear life limiting etiology could be ascertained in emergency department. Patient is appropriate for outpatient evaluation and treatment given her young age, stable vital signs, lack of medical comorbidities, unremarkable exam, unremarkable lab and imaging work-up. Factors affecting care: History of syncope Social determinants of health: Never smoker, poor health literacy History obtained from others: None Shared decision making: I will have a discussion with the patient and or visitors regarding risk/benefits of further testing or admission. They will be made aware of of the risk/benefits inherent in this decision they will be given the opportunity to voice understanding. Consults: None Lab Data Attestation: I reviewed the patient's lab results. Lab results narrative: EKG with normal sinus rhythm, normal axis, normal intervals, no STEMI, no ARVD, no WPW, no Brugada syndrome CBC without leukocytosis, severe anemia, no thrombocytopenia. Urine negative BMP without evidence of significant electrolyte abnormalities, no anion gap, no acute kidney injury. Troponin is negative, no evidence of myocardial ischemia Labs: Laboratory Results - last 24 hr 05/30/22 05/30/22 05/30/22 10:05 10:45 10:45 WBC 7.1 RBC 4.85 Hgb 13.8 Hct 42.4 MCV 87.4 MCH 28.5 MCHC 32.5 RDW Std Deviation 40.7 RDW Coeff of Mario 12.7 Plt Count 362 MPV 9.8 Immature Gran % (Auto) 0.100 Neut % (Auto) 57.0 Lymph % (Auto) 33.9 [place] % (Auto) 6.9 Eos % (Auto) 1.5 Baso % (Auto) 0.6 Absolute Neuts (auto) 4.1 Absolute Lymphs (auto) 2.42 Nucleated RBC % 0 Sodium 137 Potassium 3.6 Chloride 108 H Carbon Dioxide 24.0 Anion Gap 5 BUN 19 H Creatinine 0.80 Estim Creat Clear Calc 105.61 Est GFR (MDRD) Af Amer 109 Est GFR (MDRD) Non-Af 90 BUN/Creatinine Ratio 23.7 H Glucose 93 Calcium 9.0 Troponin I High Sens < 3 L Urine Test Negative Radiography Chest X-Ray - ED: Read by ED Physician Diagnostic Testing: Clinical Impression(s) from Imaging Studies Chest X-Ray 05/30/22 10:45 IMPRESSION: Normal x-ray examination of the chest. Electronically Signed: Barrera Monge MD at 11:02 EDT , I have personally reviewed the patient's chest x-ray. Chest x-ray is unremarkable for pulmonary edema, pneumothorax, pneumonia or focal cardiopulmonary abnormality. Discharge Plan Triage Chief Complaint: Dizziness ED Provider: Hunter Campos Dx/Rx/DC Orders Clinical Impression: Light-headedness, Acute dehydration, Acute dyspnea Instructions: ED Near-Fainting, Uncertain Cause Prescriptions: No Action topiramate 25 mg tablet 25 mg PO DAILY Label Comments: TAKE 1 TABLET BY MOUTH ONCE DAILY AT BEDTIME FOR HEADACHE Primary Care Provider: Jett Miller Referrals: Jett Miller, [Primary Care Provider] - Activity Restrictions/Additional Instructions: Thank you for trusting us with your care today! Please take Tylenol (2 pills, 650 mg), ibuprofen (2 pills, 400 mg) every 6 hours as needed for pain and fever control. Please return to the emergency department if your symptoms change or worsen. Specifically return if develop chest pain, palpitations, worsening shortness of breath, swelling in your legs, if you lose consciousness. Please follow with your primary care physician for further outpatient evaluation and management. Disposition Disposition: Home, Self Care
--- NOTE | 2022-05-30 10:30 | EKG12_ITS ---
Test Reason : DIZZY Blood Pressure : / mmHG Vent. Rate : 069 BPM Atrial Rate : 069 BPM P-R Int : 148 ms QRS Dur : 088 ms QT Int : 400 ms P-R-T Axes : 012 015 006 degrees QTc Int : 428 ms Normal sinus rhythm Normal ECG Confirmed by KRISTI ODEN, ALVIN ([id number]), newspaper copy editor LOUIE SILVEIRA ([id number]) on 06/02/2022 9:19:40 AM Referred By: Confirmed By:ALVIN BERRY MD
[2022-05-30 10:41] LABS: Internal QC Validated? YES +Cl - CLEAR BKGD; Pregnancy, Urine Negative Negative
[2022-05-30] MEDS: Ondansetron 4 MG/2 ML Vial IV (10:42)
[2022-05-30] MEDS: 0.9% Normal Saline 1,000 ML 1000 ML IV (10:42)
--- NOTE | 2022-05-30 10:45 | RAD_ITS ---
STUDY: X-RAY CHEST REASON FOR EXAM: Female, 26 years old. Chest pain. Dizziness. TECHNIQUE: Single AP portable view of the chest. COMPARISON: Comparison is made with prior study April 16, 2019. FINDINGS: EKG electrodes are seen. The lungs are clear and expanded. There is no demonstrated pleural abnormality. Normal size heart. Normal mediastinum and rimma. Normal visualized pulmonary arteries. Normal visualized aortic arch and descending thoracic aorta. Normal visualized thoracic spine. Normal visualized ribs, clavicles, and shoulders. There is no demonstrated abnormality of the visualized soft tissue structures of the upper abdomen. RAD/Chest 1 View (Portable) IMPRESSION: Normal x-ray examination of the chest. Electronically Signed: Barrera Monge MD at 11:02 EDT ,
[2022-05-30 10:55] LABS: Absolute Lymphocyte Count 2.42 X10^3/uL (0.83-4.51); Absolute Neutrophil Count 4.1 X10^3/uL (2.0-7.7); Basophil# 0.04 X10^3/uL; Basophil% 0.6 % (0-1); Eosinophil# 0.11 X10^3/uL; Eosinophils% 1.5 % (0-5); Hematocrit 42.4 % (37-47); Hemoglobin 13.8 g/dL (12.0-15.0); Lymphocyte # 2.42 X10^3/ul (0.83-4.51); Lymphocyte % 33.9 % (19-41); Mean Corp Hgb Conc 32.5 g/dL (32-36); Mean Corpuscular Hgb 28.5 pg (27.0-32.0); Mean Corpuscular Volume 87.4 fL (81-99); Mean Platelet Vol. 9.8 fl (6.2-12.0); Monocyte# 0.49 X10^3/uL; Monocyte% 6.9 % (0-10); NRBC Flagged by Analyzer 0 % (0-5); Neutrophil # 4.07 X10^3/uL (2.7-7.7); Platelet Count 362 K/mm3 (150-450); RBC Distribution Width CV 12.7 % (11.6-14.6); RBC Distribution Width SD 40.7 fl (35.1-43.9); Red Blood Count 4.85 M/mm3 (4.2-5.4); White Blood Count 7.1 K/mm3 (4.4-11.0)
[2022-05-30 11:11] LABS: Anion Gap 5 (5-15); BUN 19 mg/dL (7-18); BUN/Creat Ratio 23.7 RATIO (10-20); Chloride 108 mmol/L (98-107); EST Glomerular Filtration Rate 90 mL/min (>60); Est Glom Filt Rate - Afr Amer 109 mL/min (>60); Estimated Creatinine Clearance 105.61 ml/min; Glucose 93 mg/dL (74-106); Potassium 3.6 mmol/L (3.5-5.1); Sodium Level 137 mmol/L (136-145); Troponin-I HS < 3 pg/mL (3.0-54.0)
[2022-05-30 12:40] VITALS: BP 125/71; PULSE 67; RESP 16; O2SAT 97
== END 2022-05-30 12:49 | disposition home or self-care (01) ==
PROVIDERS: Emergency Provider Emergency Medicine; PCP Student in an Organized Health Care Education/Training Program; Visit Provider Emergency Medicine
DX: R42 Dizziness and giddiness (principal); E86.0 Dehydration; R06.00 Dyspnea, unspecified; G43.909 Migraine, unspecified, not intractable, without status migrainosus; Z79.899 Other long term (current) drug therapy
CPT/HCPCS: 71045; 80048; 81025; 84484; 85025; 93005; 96361; 96374; 99284; J7030; J2405

== ENCOUNTER 2023-01-03 21:36 | Emergency (ER) | payer OTHER, SELFPAY ==
[2023-01-03 21:37] VITALS: BP 148/83; PULSE 90; RESP 24; TEMP 38.1; O2SAT 100; BMI 37.8
[2023-01-03 21:40] VITALS: BP 148/83; PULSE 90; RESP 24; TEMP 38.3; O2SAT 100
--- NOTE | 2023-01-03 21:58 | EX.ED.DYSGE1 ---
HPI History of Present Illness Chief Complaint: Cold Sx Informant: patient Narrative Narrative: Patient presents with flulike symptoms. Patient states that about 2 or 3 days ago she started with sneezing. She had a slight sore throat that is better. She has had a slight cough but never been productive. Today she started with significant myalgias and this is what really prompted her to come in. She states she aches all over. Her appetite is down but she is not having nausea and is able to eat and drink. No diarrhea. Although she has history of chronic headaches she is not having much of a headache now. She was exposed to her boyfriend who has had some viral type symptoms and a sinus infection. Patient is on no medications, no allergies, no surgeries. [facility] Medical History Hx of migraines Home Medications NK 01/03/23 [History Last Taken Unknown] Allergy/AdvReac Type Severity Reaction Status Date / Time No Known Allergies Allergy Verified 01/03/23 21:37 Social History Smoking Status: Never smoker ROS ROS ED Constitutional Constitutional ED: Reports chills, fever(s), subjective and other Details: Highest temperature at home was 100.2. We have a 100.9 here. Eyes Eyes: Denies blurry vision ENT ENT ED: Reports rhinorrhea and sore throat; Denies ear pain Cardiovascular Cardiovascular: Denies chest pain Respiratory/Chest Respiratory/Chest: Reports cough; Denies dyspnea or sputum Gastrointestinal Gastrointestinal: Denies diarrhea or vomiting Musculoskeletal Musculoskeletal: Reports myalgias Integumentary Denies rash Neurologic Neurologic: Denies paresthesias or weakness Endocrine Endocrinology: Reports polydipsia; Denies polyuria Hematologic/Lymphatic Hematologic/Lymphatic: Denies lymphadenopathy Allergic/Immunologic Allergic/Immunologic ED: Denies urticaria EXAM Physical Exam Narrative Exam Narrative: CONSTITUTIONAL: Patient is nontoxic in appearance. The patient looks comfortable. Work of breathing looks normal. She is wrapped up in multiple blankets as she feels chilled. HEENT: No notable trauma. Mucous membranes do look a bit dry.. No sinus tenderness. No indication of pain with swallowing. No exudate or erythema. EYES: No conjunctival injection. No icterus. NECK:No JVD. No stridor. CARDIOVASCULAR: Regular rate. Regular rhythm. No notable murmur. No JVD. RESPIRATORY: No respiratory distress. Breathing is unlabored. No wheezes. No rhonchi. No rales. No pain with a deep breath. No chest wall tenderness. Saturations are normal at 100% on room air showing no hypoxia. GASTROINTESTINAL: Not distended. Bowel sounds are normal. No tenderness. No guarding. No rebound. GENITOURINARY: No tenderness over the bladder. MUSCULOSKELETAL: Atraumatic. No peripheral edema. NEUROLOGICAL: Patient is alert and appropriate. No focal deficit noted. SKIN: No noted rashes. No diaphoresis. PSYCHIATRIC: Patient is calm. Mood is appropriate. Const Vital Signs: 01/03/23 21:37 01/03/23 21:40 01/03/23 21:43 Temperature 100.6 F H 100.9 F H Temperature Source Temporal Temporal Pulse Rate 90 90 Respiratory Rate 24 H 24 H Respiratory Effort Normal Non-Labored Respiratory Pattern Normal Blood Pressure 148/83 H 148/83 H Blood Pressure Mean 104 104 Pulse Ox 100 100 MDM MDM MDM Narrative Medical decision making narrative: With the patient's cough and fever we will do chest x-ray. I will send off viral studies. We will give her some fluids as she is drinking less and does appear dry. We will give her some Toradol for fevers and myalgias. She intermittently says she was nauseated I will give her some Zofran just to see if this helps her symptoms a bit. My independent interpretation of the patient's PA and lateral chest x-ray shows no acute process and final reading is similar. Patient's COVID is positive. Patient's influenza is negative. Patient CBC is normal. Patient's metabolic panel shows no marked abnormalities. Final reading of the patient's chest x-ray shows no acute process. Patient feels bit better with some Toradol and fluids. I explained that she does have COVID. I do not think she requires Paxlovid. I think time rest meds for fever are appropriate. She should continue to make sure she eats and drinks fluids. I will write for some Zofran to see if we can help if she develops more nausea. We discussed reasons to return. Lab Data Attestation: I reviewed the patient's lab results. Labs: Laboratory Results - last 24 hr 01/03/23 22:10 WBC 7.3 RBC 4.59 Hgb 12.8 Hct 38.8 MCV 84.5 MCH 27.9 MCHC 33.0 RDW Std Deviation 38.5 RDW Coeff of Mario 12.5 Plt Count 262 MPV 10.1 Immature Gran % (Auto) 0.300 Neut % (Auto) 74.0 H Lymph % (Auto) 14.3 L [place] % (Auto) 10.6 H Eos % (Auto) 0.4 Baso % (Auto) 0.4 Absolute Neuts (auto) 5.4 Absolute Lymphs (auto) 1.04 Nucleated RBC % 0 Sodium 138 Potassium 3.6 Chloride 107 Carbon Dioxide 26.0 Anion Gap 5 BUN 11 Creatinine 0.86 Estim Creat Clear Calc 97.37 Est GFR (MDRD) Af Amer 100 Est GFR (MDRD) Non-Af 83 BUN/Creatinine Ratio 12.8 Glucose 105 Calcium 8.9 Radiography Diagnostic Testing: Clinical Impression(s) from Imaging Studies Chest X-Ray 01/03/23 22:19 IMPRESSION: No significant interval change. No radiographic evidence of acute cardiopulmonary disease. Electronically Signed: Yang Valencia MD at 22:44 EST , Discharge Plan Triage Chief Complaint: Cold Sx ED Provider: Gareth Apple Dx/Rx/DC Orders Clinical Impression: COVID-19, Fever Instructions: Coronavirus Disease 2019 (COVID-19): Caring for Yourself or Others Prescriptions: No Action NK Primary Care Provider: Jett Miller Referrals: Jett Miller, DO [Primary Care Provider] - 3-5 Days if not improving Disposition Disposition: Home, Self Care
[2023-01-03] MEDS: Ondansetron 4 MG/2 ML Vial IV (22:08)
[2023-01-03] MEDS: 0.9% Normal Saline (1000mL) 1,000 ML 1000 ML IV (22:10)
[2023-01-03] MEDS: Ketorolac 15 MG/ML Vial IV (22:10)
--- NOTE | 2023-01-03 22:19 | RAD_ITS ---
EXAM: XR CHEST, 2 VIEWS CLINICAL INDICATION: cough TECHNIQUE: Frontal and lateral views of the chest. COMPARISON: Previous chest radiographs of 05/30/2022 and 04/16/2019. FINDINGS: LUNGS AND PLEURAL SPACES: Azygous fissure incidentally noted. No consolidation or edema. No pneumothorax. No effusion. HEART: Unremarkable. Cardiac silhouette not enlarged. Normal pulmonary vasculature. MEDIASTINUM: Central airways and mediastinal contour are unremarkable. Trachea is midline. BONES/JOINTS: Unremarkable. No acute osseous abnormality. SOFT TISSUES: Unremarkable. RAD/Chest PA and Lateral IMPRESSION: No significant interval change. No radiographic evidence of acute cardiopulmonary disease. Electronically Signed: Yang Valencia MD at 22:44 EST ,
[2023-01-03 22:24] LABS: Absolute Lymphocyte Count 1.04 X10^3/uL (0.83-4.51); Absolute Neutrophil Count 5.4 X10^3/uL (2.0-7.7); Basophil# 0.03 X10^3/uL; Basophil% 0.4 % (0-1); Eosinophil# 0.03 X10^3/uL; Eosinophils% 0.4 % (0-5); Hematocrit 38.8 % (37-47); Hemoglobin 12.8 g/dL (12.0-15.0); Lymphocyte # 1.04 X10^3/ul (0.83-4.51); Lymphocyte % 14.3 % (19-41); Mean Corpuscular Hgb 27.9 pg (27.0-32.0); Mean Corpuscular Volume 84.5 fL (81-99); Mean Platelet Vol. 10.1 fl (6.2-12.0); Monocyte# 0.77 X10^3/uL; Monocyte% 10.6 % (0-10); NRBC Flagged by Analyzer 0 % (0-5); Platelet Count 262 K/mm3 (150-450); RBC Distribution Width CV 12.5 % (11.6-14.6); RBC Distribution Width SD 38.5 fl (35.1-43.9); Red Blood Count 4.59 M/mm3 (4.2-5.4); White Blood Count 7.3 K/mm3 (4.4-11.0)
[2023-01-03 22:50] LABS: Anion Gap 5 (5-15); BUN 11 mg/dL (7-18); BUN/Creat Ratio 12.8 RATIO (10-20); Calcium,Total 8.9 mg/dL (8.5-10.1); Chloride 107 mmol/L (98-107); Creatinine, Serum 0.86 mg/dL (0.55-1.02); EST Glomerular Filtration Rate 83 mL/min (>60); Est Glom Filt Rate - Afr Amer 100 mL/min (>60); Estimated Creatinine Clearance 97.37 ml/min; Glucose 105 mg/dL (74-106); Potassium 3.6 mmol/L (3.5-5.1); Sodium Level 138 mmol/L (136-145)
[2023-01-03 23:04] VITALS: BP 109/77; PULSE 89; RESP 15; O2SAT 97
== END 2023-01-03 23:28 | disposition home or self-care (01) ==
PROVIDERS: Emergency Provider Emergency Medicine; PCP Student in an Organized Health Care Education/Training Program; Visit Provider Emergency Medicine
DX: U07.1 COVID-19 (principal); R50.9 Fever, unspecified
CPT/HCPCS: 71046; 80048; 85025; 87428; 96361; 96374; 96375; 99283; J7030; A4216; J2405

== ENCOUNTER 2024-07-17 04:36 | Emergency (ER) | payer OTHER, SELFPAY ==
[2024-07-17 04:37] VITALS: BP 148/91; PULSE 64; RESP 16; TEMP 37; O2SAT 98; BMI 40.4
--- NOTE | 2024-07-17 04:43 | EX.ED.DYSGE1 ---
HPI History of Present Illness Chief Complaint: Foreign Body Informant: patient Narrative Narrative: 28-year-old female presenting to the emergency room with a chief complaint of foreign body in the ear. Patient is using a Q-tip when she removed the Q-tip there was no cotton on it. She notes decreased hearing in the left ear. No bleeding noted. [facility] Medical History Hx of migraines Home Medications ?Medication ?Instructions ?Recorded ?Last Taken ?Type ondansetron 4 mg disintegrating 4 mg PO Q8H PRN PRN Nausea #10 tabs 01/03/23 Unknown Rx tablet Allergy/AdvReac Type Severity Reaction Status Date / Time No Known Allergies Allergy Verified 07/17/24 04:38 Social History housing: house Smoking Status: Never smoker ROS ROS ED Constitutional Constitutional ED: Denies chills, fever(s) or weight loss Eyes Eyes: Denies change in vision or diplopia ENT ENT ED: Reports other Details: Foreign body left ear canal ; Denies ear pain, rhinorrhea or sore throat Cardiovascular Cardiovascular: Denies chest pain, orthopnea, palpitations or racing heartbeat Respiratory/Chest Respiratory/Chest: Denies cough, dyspnea or orthopnea Gastrointestinal Gastrointestinal: Denies abdominal pain, diarrhea, nausea or vomiting Genitourinary Genitourinary ED: Denies dysuria, hematuria or urinary frequency Musculoskeletal Musculoskeletal: Denies arthralgias or myalgias Integumentary Denies abscess or rash Neurologic Neurologic: Denies headache(s) or weakness Psychiatric Psychiatric: Denies anxiety, depression, suicidal ideation or suicidal thoughts Endocrine Endocrinology: Denies polydipsia, polyphagia or polyuria Allergic/Immunologic Allergic/Immunologic ED: Denies mouth swelling, tongue swelling or urticaria EXAM Physical Exam Const Vital Signs: 07/17/24 04:37 07/17/24 04:39 Temperature 98.6 F Temperature Source Oral Pulse Rate 64 Respiratory Rate 16 Respiratory Effort Normal Non-Labored Respiratory Pattern Normal Blood Pressure 148/91 H Blood Pressure Mean 110 Pulse Ox 98 Oxygen Delivery Method Room Air Positive well nourished and well developed General Appearance ED: well developed HEENT Reports normocephalic, head/scalp atraumatic and moist mucous membranes HEENT Narrative: Right ear canal and tympanic membrane appear normal. Left ear canal is occluded with a piece of cotton. Eyes PERRL and EOMs intact bilaterally Neck no lymphadenopathy, supple and no JVD Resp normal respiratory effort and clear to auscultation bilaterally Cardio regular rate, regular rhythm and no murmurs GI normal to inspection, nondistended, normoactive bowel sounds and non-tender Palpation: soft Back/Spine no CVA tenderness and normal ROM Extremity normal to inspection General Extremety ED: Negative for edema General Extremity: Negative for edema Neuro oriented x3 and CN's II-XII intact bilaterally Sensorium / Orientation: alert Motor Exam: strength 5/5 throughout Psych mental status grossly normal Mood & Affect: Negative for depressed or tearful Skin no rashes or lesions noted and no wounds MDM MDM MDM Narrative Medical decision making narrative: Differential diagnosis includes ruptured tympanic membrane otitis externa foreign body in the ear canal ear canal abrasion Using alligator forceps and light was able to directly visualize the piece of cotton and easily remove it without difficulty. Patient notes hearing is intact. Tympanic membrane appears normal. Patient to follow-up as needed return if worsening or concerns History & Record Review Discussion w/independent historian: Patient Discharge Plan Triage Chief Complaint: Foreign Body ED Provider: Bryson Espinoza Dx/Rx/DC Orders Clinical Impression: Acute foreign body of ear canal Instructions: ED Foreign Body, Ear Canal (Removed) Prescriptions: No Action ondansetron [ondansetron] 4 mg tablet,disintegrating 4 mg PO Q8H PRN PRN (Reason: Nausea) Qty: 10 0RF Primary Care Provider: Jett Miller Referrals: Jett Miller DO [Primary Care Provider] - As Needed Print Language: Mongolian Disposition Disposition: Home, Self Care
--- OUTSIDE RECORDS SUMMARY | 2024-07-17 04:51 | XMS RPT_ITS | CCD ---
Author Organization [facility] Inform ion Partnership [facility] Care Team Providers Care Gem Setter Name Role Phone Jett Burgos DO Primary Care Provider [phone] Bruce Mercado Attending Unavailable Jett Burgos Primary Care Unavailable Hunter Campos Attending Unavailable Jett Burgos Primary Care Unavailable Gareth Apple Attending Unavailable Jett Burgos Primary Care Unavailable Jett Burgos DO Primary Care Provider [phone] JETT BURGOS Primary Care Unavailable BRIAN PRIDE Attending Unavailable BRIAN PRIDE Referring Unavailable JETT BURGOS Primary Care Unavailable Raghav PHYSICIAN GENERAL PRACTICE.Ramya BELL Unavailable Medications Current Medications Medication Drug Class(es) Dates Sig (Normalized) Sig (Original) acetaminophen 325 mg / HYDROcodone bitartrate 5 mg oral tablet (2 sources) Opioid Agonist Start: 04-15-2022 take 1 tablet by mouth every six hours Hydrocodone-Aceta minophen Active 1 TABLET PO EVERY 6 HOURS 12 April 15, 2022 Start: 11-22-2020 take 1 tablet by mu th every six hours as needed Hydrocodone-Acetaminophen Active 1 TABLE T PO EVERY 6 HOURS NEEDED 11 08November 22, 2020 amoxicillin 875 mg / clavulanate 125 mg oral tablet (1 source) Penicillin-class Antibacterial Start: 04-15-2022 take 1 tablet by mouth twice daily Amoxicillin-Pot Clavulanate Active 1 TABLET PO TWICE A DAY April 15, 2022 12:00am ondansetron 4 mg disintegrating oral tablet (1 source) Serotonin-3 Receptor Antagonist Start: 01-03-2023 take 4 mg by mouth every eight hours as needed Ondansetron Active 4 MG PO EVERY 8 HOURS NEEDED January 03, 2023 12:00am 24 hr propranolol hydrochloride 60 mg extended release oral capsule (7 sources) beta-Adrenergic Adalid Start: 03-02-2023 End: 01-06-2024 take 1 capsule by mouth once daily propranolol ER (INDERAL LA) 60 mg 24 hr capsule Indications: Migraine headache Take 1 capsule by mouth once daily. 90 capsule 1 07/10/2023 Active rizatriptan 10 mg disintegrating oral tablet (6 sources) Serotonin-1b and Serotonin-1d Receptor Agonist Start: 06-06-2023 End: 07-10-2023 take 1 tablet by mouth every two hours as needed for headache rizatriptan (MAXALT-SYSTEM ARCHITECT) 10 mg disintegrating tablet Indications: Migraine headache Take 1 tablet (10 mg) by mouth as needed for migraine headache (see administration instructions). May repeat dose after 2 hours if needed. Maximum daily dose is 30 mg per day. 12 tablet 3 07/10/2023 Active Completed/Discontinued Medications Medication Drug Class(es) Dates Sig (Normalized) Sig (Original) cyclobenzaprine hydrochloride 5 mg oral tablet (5 sources) Muscle Relaxant Start: 04-16-2021 End: 10-03-2022 take 1-2 tablets by mouth at bedtime as needed for muscle spasms cyclobenzaprine (FLEXERIL) 5 mg tablet Indications: Neck pain , Injury of neck, subsequent encounter Take 1-2 tablets by mouth at bedtime as needed for muscle spasm. 30 tablet 1 04/16/2021 10/03/2022 Discontinued Start: 11-22-2020 take 10 mg by mouth at bedtime as needed Cyclobenzaprine Active 10 MG PO AT BEDTIME NEEDED November 22, 2020 10:31pm Comment on above: Take 1-2 tablets by mouth at bedtime as needed for muscle spasm. ibuprofen 600 mg oral tablet (5 sources) Nonsteroidal Anti-inflammatory Drug Start: 07-08-19 End: 10-04-19 take 1 tablet by mouth every six hours as needed ibuprofen (MOTRIN) 600 mg tablet Take 1 tablet by mouth every 6 hours as needed for Pain. 30 tablet 07/08/2019 10/03/2022 Discontinued Comment on above: Take 1 tablet by mu every 6 hours as needed for Pain. meloxicam 15 mg oral tablet (1 source) Nonsteroidal Anti-inflammatory Drug Start: 09-08-20 23 take 1 tablet by mouth once daily meloxicam (MOBIC) 15 mg tablet Take 1 tablet by mouth once daily. 30 tablet 0 10/14/2022 Active Comment on above: Take 1 tablet by mu th once daily. SUMAtriptan 50 mg oral tablet (1 source) Serotonin-1b and Serotonin-1d Receptor Agonist Start: 03-02-19 End: 06-06-19 24 take 1 tablet by mouth every two hours, then take 2 tablets by mouth every twenty-four hours SUMAtriptan (IMITREX) 50 mg tablet Indications: Migraine headache Take 1 tablet at onset of migraine headache by mouth, may repeat in 2 hour if headache persists. Do not take more than 2 tablets within 24 hours. 12 tablet 1 03/02/2023 06/06/2023 Discontinued topiramate 25 mg oral tablet (7 sources) Start: 04-17-19 End: 01-04-20 23 take 1 tablet by mouth once daily at bedtime for headache topiramate (TOPAMAX) 25 mg tablet Indications: Neck pain , Injury of neck, subsequent encounter Take 1 tablet by mouth daily at bedtime. For headaches. 90 tablet 1 02/11/2022 10/03/2022 Discontinued Comment on above: Take 1 tablet by mu th daily at bedtime. For headaches. Problems Active Problems Problem Classification Problem Date Documented Da te Episodic/Chronic Acute and chronic tonsillitis (1 source) Hypertrophy of tonsils; Translations: [Hypertrophy of tonsils] Chronic Fever of unknown origin (1 source) Fever; Translations: [Fever, unspecified] 01-03-2023 Episodic Fluid and electrolyte disorders (2 sources) Dehydration; Translations: [Dehydration] 05-30-2022 Episodic Fracture of upper limb (1 source) Closed fracture thumb proximal phalanx; Translations: [Nondisplaced fracture of proximal phalanx of right thumb, initial encounter for closed fracture] 07-15-2024 Episodic Headache; including migraine (20 sources) Chronic tension-type headache; Translations: [Chronic tension-type headache, not intractable] Onset: 09-17-2010 02-01-2021 Chronic Other injuries and conditions due to external causes (1 source) Injury of neck; Translations: [Unspecified injury of neck, subsequent encounter] Episodic Other injuries and conditions due to external causes (1 source) Unspecified injury of right wrist, hand and finger(s), initial encounter; Translations: [Injury of right hand, initial encounter] Onset: 07-14-2024 Episodic Other injuries and conditions due to external causes (2 sources) Injury of right hand; Translations: [Unspecified injury of right wrist, hand and finger(s), initial encounter] 07-14-2024 Episodic Other lower respiratory disease (1 source) Cough; Translations: [Acute cough] Episodic Other lower respiratory disease (2 sources) Dyspnea; Translations: [Dyspnea, unspecified] 05-30-2022 Episodic Other non-traumatic joint disorders (3 sources) Pain in wrist; Translations: [Pain in right wrist] 10-03-2022 Episodic Other non-traumatic joint disorders (1 source) Acute ankle pain; Translations: [Pain in right ankle and joints of right foot] 05-24-2022 Episodic Other nutritional; endocrine; and metabolic disorders (11 sources) Body mass index 30+ - obesity; Translations: [Obesity, unspecified] Onset: 09-17-2010 09-17-2010 Chronic Other upper respiratory disease (1 source) Nasal sinus problem; Translations: [Other specified disorders of nose and nasal sinuses] Episodic Other upper respiratory infections (1 source) Sore throat symptom; Translations: [Acute pharyngitis, unspecified] Episodic Spondylosis; intervertebral disc disorders; other back problems (1 source) Neck pain; Translations: [Cervicalgia] Episodic Sprains and strains (3 sources) Strain of neck muscle; Translations: [Strain of muscle, fascia and tendon at neck level, initial encounter] 11-30-2020 Episodic Superficial injury; contusion (3 sources) Contusion of hip; Translations: [Contusion of left hip, initial encounter] 10-08-2020 Episodic Syncope (6 sources) Syncope; Translations: [Syncope and collapse] 10-08-2020 Episodic Viral infection (3 sources) Disease caused by 2019-nCoV; Translations: [COVID-19] 10-08-2020 Episodic Viral infection (1 source) COVID-19; Translations: [COVID-19] Onset: 01-05-2023 Past or Other Problems Problem Classification Problem Date Documented Da te Episodic/Chronic Conditions associated with dizziness or vertigo (3 sources) Lightheadedness; Translations: [Dizziness and giddiness] Onset: 06-03-2022 05-30-2022 Episodic Disorders of teeth and jaw (4 sources) Toothache; Translations: [Other specified disorders of teeth and supporting structures] Onset: 04-20-2022 04-15-2022 Episodic Headache; including migraine (6 sources) Headache; Translations: [Worsening headaches] Onset: 06-08-2023 06-08-2023 Episodic Unclassified (3 sources) Injury of right hand 07-15-2024 Results Test Name Value Interpretation Reference Range Facility XR HAND 3V PA/LAT/OBL RTon 0 07-15-2024 XR HAND 3V PA/LAT/OBL RT * * *Final Report* * * DATE OF EXAM: Jul 15 2024 9:04AM WOX [id number] - XR HAND 3V PA/LAT/OBL RT / PROCEDURE REASON: Injury of right hand, initial encounter * * * * Physician Interpretation * * * * TITLE: XR HAND 3V PA/LAT/OBL RT CLINICAL INDICATION: Jammed thumb catching a ball. TECHNIQUE: 3 view radiographic study of the right hand COMPARISON: None FINDINGS: Soft tissue swelling in the region of the thenar eminence. On one view only, there is suggestion of a nondisplaced intra-articular fracture of the radial aspect of the base of the first proximal phalanx. Mild first metacarpal phalangeal joint osteoarthritis. IMPRESSION: Suspected nondisplaced fracture of the base of the first proximal phalanx as described. Correlate with physical examination for point tenderness in this region. Manager Android: GINETTE Transcribe Date/Time: Jul 15 2024 9:15A Dictated by : DAINA RAMOS MD This examination was interpreted and the report reviewed and electronically signed by: DAINA RAMOS MD on Jul 15 2024 9:17AM EST [id number] CN Normal [facility] XR Hand - right PA and Later al and Obliqueon 07-15-2024 IMPRESSION: Suspected nondisplaced fracture of the base of the first proximal phalanx as described. Correlate with physical examination for point tenderness in this region. Manager Android: GINETTE Transcribe Date/Time: Jul 15 2024 9:15A Dictated by : DAINA RAMOS MD This examination was interpreted and the report reviewed and electronically signed by: DAINA RAMOS MD on Jul 15 2024 9:17AM EST DIVISION OF RADIOLOGY * * *Final Report* * * DATE OF EXAM: Jul 15 2024 9:04AM WOX [id number] - XR HAND 3V PA/LAT/OBL RT / PROCEDURE REASON: Injury of right hand, initial encounter * * * * Physician Interpretation * * * * TITLE: XR HAND 3V PA/LAT/OBL RT CLINICAL INDICATION: Jammed thumb catching a ball. TECHNIQUE: 3 view radiographic study of the right hand COMPARISON: None FINDINGS: Soft tissue swelling in the region of the thenar eminence. On one view only, there is suggestion of a nondisplaced intra-articular fracture of the radial aspect of the base of the first proximal phalanx. Mild first metacarpal phalangeal joint osteoarthritis. DIVISION OF RADIOLOGY Provider, [facility] [place] [facility] [place] - 07/15/2024 * * *Final Report* * * DATE OF EXAM: Jul 15 2024 9:04AM WOX [id number] - XR HAND 3V PA/LAT/OBL RT / PROCEDURE REASON: Injury of right hand, initial encounter * * * * Physician Interpretation * * * * TITLE: XR HAND 3V PA/LAT/OBL RT CLINICAL INDICATION: Jammed thumb catching a ball. TECHNIQUE: 3 view radiographic study of the right hand COMPARISON: None FINDINGS: Soft tissue swelling in the region of the thenar eminence. On one view only, there is suggestion of a nondisplaced intra-articular fracture of the radial aspect of the base of the first proximal phalanx. Mild first metacarpal phalangeal joint osteoarthritis. IMPRESSION IMPRESSION: Suspected nondisplaced fracture of the base of the first proximal phalanx as described. Correlate with physical examination for point tenderness in this region. Manager Android: PSCB Transcribe Date/Time: Jul 15 2024 9:15A Dictated by : DAINA RAMOS MD This examination was interpreted and the report reviewed and electronically signed by: DAINA RAMOS MD on Jul 15 2024 9:17AM [facility] Radiology Study observation (narrative) [facility] XR Hand - right PA and Later al and ObliqueOrdered By: Ccf Provider on 07-15-2024 [facility] CNOVon 07-14-2024 CNOV Office Visit (UCWSTR) CRISTINA JEAN ([id number]) 1995 F Date Time Provider Department 07/14/24 12:30 PM BRIAN PRIDE [facility] During your visit today, we recorded the following information about you: Temperature Pulse Respiration Blood pressure 98.2 degrees 75/minute 18/minute 126/90 Weight 116.7 kg Brian Pride APRN.AGRICULTURAL TECHNICIAN 07/15/2024 9:39 AM Signed Subjective HPI Nontoxic-appearing 28-year-old female presents urgent care chief complaint hand injury. Patient states yesterday she was catching a football and football struck her on her thumb stretching it backwards. Presents today due to swelling and tenderness. No other injuries. No numbness no tingling. No decrease sensation. No surgeries fractures previously past medical history prescription medications allergies reviewed right hand dominant .Patient presents with: Trauma: Right thumb injury x 1 day PAST MEDICAL HISTORY Diagnosis Date Migraine headache PMH - PAST MEDICAL HISTORY OF 11/14/97 normal color vision PAST SURGICAL HISTORY Procedure Laterality Date NONE ALLERGIES Patient has no known allergies. MEDICATIONS propranolol ER (INDERAL LA) 60 mg 24 hr capsule Take 1 capsule by mouth once daily. rizatriptan (MAXALT-SYSTEM ARCHITECT) 10 mg disintegrating tablet Take 1 tablet (10 mg) by mouth as needed for migraine headache (see administration instructions). May repeat dose after 2 hours if needed. Maximum daily dose is 30 mg per day. (Patient not taking: Reported on 07/14/2024) FAMILY HISTORY Problem Relation Age of Onset Diabetes Mother Diabetes Maternal Grandmother Diabetes Maternal Grandfather Coronary Artery Disease Other no 1st degree Colon Cancer Other none None Brother Social History Tobacco Use Smoking status: Never Smokeless tobacco: Current Tobacco comments: vape Substance Use Topics Alcohol use: No Drug use: No BP 126/90 Pulse 75 Temp 36.8 ?C (98.2 ?F) Resp 18 Wt 116.7 kg (257 lb 4.4 oz) LMP (LMP Unknown) SpO2 97% BMI 39.12 kg/m? Review of Systems Constitutional: Negative for chills, fever and malaise/fatigue. Musculoskeletal: Positive for joint pain. Negative for back pain, falls, myalgias and neck pain. Neurological: Negative for dizziness, loss of consciousness, weakness and headaches. Objective Physical Exam Constitutional: General: She is not in acute distress. Appearance: She is not toxic-appearing. HENT: Head: Normocephalic. Nose: Nose normal. Eyes: Pupils: Pupils are equal, round, and reactive to light. Cardiovascular: Rate and Rhythm: Normal rate. Pulmonary: Effort: Pulmonary effort is normal. No respiratory distress. Musculoskeletal: Right wrist: Normal. Hands: Cervical back: Normal range of motion. Comments: Ecchymosis noted. Pain with palpation over MCP joint. Neurovascular intact. No breaks in skin. Skin: General: Skin is warm and dry. Neurological: General: No focal deficit present. Mental Status: She is alert. ASSESSMENT/PLAN: 1. Injury of right hand, initial encounter - ICD9: 959.4, ICD10: S69.91XA (primary diagnosis) - XR HAND GENERAL 3V PA/LAT/OBL RIGHT - CONSULT TO ORTHOPAEDICS 2. Closed nondisplaced fracture of proximal phalanx of right thumb, initial encounter - ICD9: 816.01, ICD10: S62.514A IMPRESSION: Suspected nondisplaced fracture of the base of the first proximal phalanx as described. Correlate with physical examination for point tenderness in this region. Suspected fracture proximal phalanx. Placed in thumb spica splint. Follow-up with orthopedics. Concerned about possible gamekeeper's thumb. Patient was educated on supportive therapies. Patient will follow up with primary care provider as needed. Patient was instructed to immediately proceed to emergency room for any new, worsening, or symptoms lasting longer than anticipated. The patient's clinical presentation is otherwise unremarkable at this time. Based on exam and clinical finding, the patient is stable for discharge. Plan of care was discussed with patient. Patient verbalizes understanding and agrees to plan of care. This note was generated using [employer] software. It may contain errors in wording, punctuation, or spelling. Brian Pride APRN.AGRICULTURAL TECHNICIAN Allergies As of Date: 07/14/2024 (No Known Allergies) Date Reviewed: 07/14/2024 Reviewed by: Kiara Weber MA - Fully Assessed Reason for Visit: Trauma [112] Cmt: Right thumb injury x 1 day Primary Visit Diagnosis:Injury of right hand, initial encounter [S69.91XA] Other Visit Diagnosis:Closed nondisplaced fracture of proximal phalanx of right thumb, initial encounter [S62.514A] Order(s):XR HAND GENERAL 3V PA/LAT/OBL RIGHT [6489865] Order #: [id number] FUTURE CONSULT TO ORTHOPAEDICS [9026] Order #: [id number]: 1 FUTURE Prescriptions as of 07/15/2024 - propranolol ER (INDERAL LA) (more content not included)... Normal [facility] Basic Metabolic Profile (BMP )on 01-04-2023 BUN/CRE 12.8 RATIO Normal 10-20 [facility] Comment on above: Performed By: #### L 500.2500, L100.0100 ####[facility] [address] [place], [address] CA,Total 8.9 mg/dL Normal 8.5-10.1 [facility] Comment on above: Performed By: #### L 500.2500, L100.0100 ####[facility] [address] [place], [address] Chloride [Moles/Vol] 107 mmol/L Normal 98-107 [facility] Comment on above: Performed By: #### L 500.2500, L100.0100 ####[facility] [address] [place], [address] CO2 [Moles/Vol] 26.0 mmol/L Normal 21.0-32.0 [facility] Comment on above: Performed By: #### L 500.2500, L100.0100 ####[facility] [address] [place], [address] Creatinine [Mass/Vol] 0.86 mg/dL Normal 0.55-1.02 [facility] Comment on above: Result Comment: The validity of the calculated GFR GFRAA in patients over 70 years has not been determined. Clinical correlation is essential. Performed By: #### L 500.2500, L100.0100 ####[facility] [address] [place], [address] ECRCL 97.37 ml/min Normal [facility] Comment on above: Performed By: #### L 500.2500, L100.0100 ####[facility] [address] [place], [address] EST GFR - AA 100 mL/min Normal >60 [facility] Comment on above: Result Comment: Afri can Lao GFR Calc Performed By: #### L 500.2500, L100.0100 ####[facility] [address] [place], [address] GAP 5 Normal 5-15 [facility] Comment on above: Performed By: #### L 500.2500, L100.0100 ####[facility] [address] [place], [address] GFR/1.73 sq M.predicted among non-blacks MDRD (S/P/Bld) [Vol rate/Area] 83 mL/min/{1.73_m2} Normal >60 [facility] Comment on above: Result Comment: Non- GFR Calc Performed By: #### L 500.2500, L100.0100 ####[facility] [address] [place], [address] Glucose [Mass/Vol] 105 mg/dL Normal 74-106 [facility] Comment on above: Result Comment: Fast ing Glucose result from 100 to 125 mg/dL suggests IMPAIRED HOMEOSTASIS per A.D.A. criteria. Performed By: #### L 500.2500, L100.0100 ####[facility] [address] [place], [address] Potassium [Moles/Vol] 3.6 mmol/L Normal 3.5-5.1 [facility] Comment on above: Performed By: #### L 500.2500, L100.0100 ####[facility] [address] [place], [address] Sodium [Moles/Vol] 138 mmol/L Normal 136-145 [facility] Comment on above: Performed By: #### L 500.2500, L100.0100 ####[facility] [address] [place], [address] Urea nitrogen [Mass/Vol] 11 mg/dL Normal 7-18 [facility] Comment on above: Performed By: #### L 500.2500, L100.0100 ####[facility] [address] [place], [address] CBC W/Diff, Automatedon 11- Absolute Lymph 1.04 X10 3/uL Normal 0.83-4.51 [facility] Comment on above: Performed By: #### L 500.2500, L100.0100 ####[facility] [address] [place], [address] Absolute Neut 5.4 X10 3/uL Normal 2.0-7.7 [facility] Comment on above: Performed By: #### L 500.2500, L100.0100 ####[facility] [address] [place], [address] Basophils/100 WBC (Bld) 0.4 % Normal 0-1 [facility] Comment on above: Performed By: #### L 500.2500, L100.0100 ####[facility] [address] [place], [address] Eosinophils/100 WBC (Bld) 0.4 % Normal 0-5 [facility] Comment on above: Performed By: #### L 500.2500, L100.0100 ####[facility] [address] [place], [address] Erythrocyte distribution width (RBC) [Ratio] 12.5 % Normal 11.6-14.6 [facility] Comment on above: Performed By: #### L 500.2500, L100.0100 ####[facility] [address] [place], [address] Hematocrit (Bld) [Volume fraction] 38.8 % Normal 37-47 [facility] Comment on above: Performed By: #### L 500.2500, L100.0100 ####[facility] [address] [place], [address] Hemoglobin (Bld) [Mass/Vol] 12.8 g/dL Normal 12.0-15.0 [facility] Comment on above: Performed By: #### L 500.2500, L100.0100 ####[facility] [address] [place], [address] IG% 0.300 Normal 0.0-0.9 [facility] Comment on above: Result Comment: IG% - Immature Granulocytes (promyelocytes, myelocytes and metamyelocytes) > 1% indicates that a LEFT SHIFT is Present. Performed By: #### L 500.2500, L100.0100 ####[facility] [address] [place], [address] Lymphocytes/100 WBC (Bld) 14.3 % Low 19-41 [facility] Comment on above: Performed By: #### L 500.2500, L100.0100 ####[facility] [address] [place], [address] MCH (RBC) [Entitic mass] 27.9 pg Normal 27.0-32.0 [facility] Comment on above: Performed By: #### L 500.2500, L100.0100 ####[facility] [address] [place], [address] MCHC (RBC) [Mass/Vol] 33.0 g/dL Normal 32-36 [facility] Comment on above: Performed By: #### L 500.2500, L100.0100 ####[facility] [address] [place], [address] MCV (RBC) [Entitic vol] 84.5 fL Normal 81-99 [facility] Comment on above: Performed By: #### L 500.2500, L100.0100 ####[facility] [address] [place], [address] Monocytes/100 WBC (Bld) 10.6 % High 0-10 [facility] Comment on above: Performed By: #### L 500.2500, L100.0100 ####[facility] [address] [place], [address] Neutrophils/100 WBC (Bld) 74.0 % High 47-70 [facility] Comment on above: Performed By: #### L 500.2500, L100.0100 ####[facility] [address] [place], [address] Nucleated RBC (Bld) [#/Vol] 0 10*3/uL Normal 0-5 [facility] Comment on above: Performed By: #### L 500.2500, L100.0100 ####[facility] [address] [place], [address] Platelet mean volume (Bld) [Entitic vol] 10.1 fL Normal 6.2-12.0 [facility] Comment on above: Performed By: #### L 500.2500, L100.0100 ####[facility] [address] [place], [address] Platelets (Bld) [#/Vol] 262 10*3/uL Normal 150-450 [facility] Comment on above: Performed By: #### L 500.2500, L100.0100 ####[facility] [address] [place], [address] RBC (Bld) [#/Vol] 4.59 10*6/uL Normal 4.2-5.4 [facility] Comment on above: Performed By: #### L 500.2500, L100.0100 ####[facility] [address] [place], [address] RDW SD 38.5 fl Normal 35.1-43.9 [facility] Comment on above: Performed By: #### L 500.2500, L100.0100 ####[facility] [address] [place], [address] WBC (Bld) [#/Vol] 7.3 10*3/uL Normal 4.4-11.0 [facility] Comment on above: Performed By: #### L 500.2500, L100.0100 ####[facility] [address] [place], [address] Chest PA and Lateralon 01-04 Chest PA and Lateral [facility] [address] [place] [address] Chest PA and Lateral MR#: [id number] Acct: [id number] Name: CRISTINA JEAN Rep #: [id number] : 1995 F 27 From: Yang horner MD PCP: Dr. Jett Burgos, DO Status: [facility] ER Study: Chest PA and Lateral Date of Exam: 01/03/23 Exam# [id number] Ordering Dr: Gareth Apple MD [id number] EXAM: XR CHEST, 2 VIEWS CLINICAL INDICATION: cough TECHNIQUE: Frontal and lateral views of the chest. COMPARISON: Previous chest radiographs of 05/30/2022 and 04/16/2019. FINDINGS: LUNGS AND PLEURAL SPACES: Azygous fissure incidentally noted. No consolidation or edema. No pneumothorax. No effusion. HEART: Unremarkable. Cardiac silhouette not enlarged. Normal pulmonary vasculature. MEDIASTINUM: Central airways and mediastinal contour are unremarkable. Trachea is midline. BONES/JOINTS: Unremarkable. No acute osseous abnormality. SOFT TISSUES: Unremarkable. RAD/Chest PA and Lateral IMPRESSION: No significant interval change. No radiographic evidence of acute cardiopulmonary disease. Electronically Signed: Yang Valencia MD at 22:44 EST , CC: Dr. Jett Burgos, DO; Dr. Gareth Apple MD Manager Android: Signed Normal [facility] M101.0111on 01-04-2023 M101.0111 Copy of report sent to Infection Control Printer [id number] 01/04/23 0727 [facility]. *Negative results from patients with symptom onset beyond five days should be treated as presumptive and confirmed by a molecular assay if clinically necessary. Negative results should not be used as the sole basis for treatment or for patient management. FLUABV+SARS-CoV2 Ag Pnl Up resp IA.rapid *Positive results do not differentiate between SARS-CoV and SARS-CoV-2. FLUABV+SARS-CoV2 Ag Pnl Up resp IA.rapid Negative Influenza results should be confirmed with FLU PANEL MOLECULAR if indicated. FLUABV+SARS-CoV2 Ag Pnl Up resp IA.rapid * This test has not been FDA cleared or approved; the test has been authorized by FDA under an Emergency Use Authorization (EAU) for use by laboratories certified under CLIA that meet the requirements to perform moderate, high, or waived complexity tests. FLUABV+SARS-CoV2 Ag Pnl Up resp IA.rapid Normal Reference Range: Negative Jaci, NEMO method SARS-CoV-2 (COVID 19) A *POSITIVE* A Influenza Ag, Direct NEGATIVE for Influenza A/B Antigen (See Note) SARS-CoV-2 (COVID 19) Normal [facility] Comment on above: Performed By: #### M 101.0111 #### [facility] [place], [address] Absolute lymphocyte countOrd ered By: Gareth Apple on 01-03-2023 Lymphocytes Auto (Unsp spec) [#/Vol] 1.04 10*3/uL 0.83-4.51 [facility] Basophil percentageOrdered B y: Gareth Apple on 01-03-2023 Basophils/100 WBC (Bld) 0.4 % 0-1 [facility] Chloride [Moles/Vol] 107 mmol/L 98-107 [facility] Eosinophils/100 WBC (Bld) 0.4 % 0-5 [facility] Glucose [Mass/Vol] 105 mg/dL 74-106 [facility] Comment on above: Fasting Glucose resu lt from 100 to 125 mg/dL suggests IMPAIRED HOMEOSTASIS per A.D.A. criteria. Neutrophils (Bld) [#/Vol] 5.4 10*3/uL 2.0-7.7 [facility] Neutrophils/100 WBC (Bld) 74.0 % 47-70 [facility] Potassium [Moles/Vol] 3.6 mmol/L 3.5-5.1 [facility] Sodium [Moles/Vol] 138 mmol/L 136-145 [facility] WBC (Bld) [#/Vol] 7.3 10*3/uL 4.4-11.0 [facility] Blood erythrocytes count (nu mber/volume)Ordered By: Gareth Apple on 01-03-2023 RBC (Bld) [#/Vol] 4.59 10*6/uL 4.2-5.4 [facility] Blood hemoglobin measurement (mass/volume)Ordered By: Gareth Apple on 01-03-2023 Hemoglobin (Bld) [Mass/Vol] 12.8 g/dL 12.0-15.0 [facility] Blood lymphocytes/100 leukoc ytesOrdered By: Gareth Apple on 01-03-2023 Lymphocytes/100 WBC (Bld) 14.3 % 19-41 [facility] Blood monocytes/100 leukocyt esOrdered By: Gareth Apple on 01-03-2023 Monocytes/100 WBC (Bld) 10.6 % 0-10 [facility] Blood platelet mean volumeOr dered By: Gareth Apple on 01-03-2023 Platelet mean volume (Bld) [Entitic vol] 10.1 fL 6.2-12.0 [facility] Determination of erythrocyte mean corpuscular volume (MCV)Ordered By: Gareth Apple on 01-03-2023 MCV (RBC) [Entitic vol] 84.5 fL 81-99 [facility] Emergency Department Summary on 01-03-2023 Emergency Department Summary [facility] Medical Records Department [address] [place] [address] Emergency Department Summary 01/03/23 MR#: [id number] Acct: [id number] Name: CRISTINA JEAN Rep #: [id number] : 1995 27 From: Gareth Apple MD PCP: Dr. Jett Burgos, DO Status:REG ER Location: ED HPI History of Present Illness Chief Complaint: Cold Sx Informant: patient Narrative Narrative: Patient presents with flulike symptoms. Patient states that about 2 or 3 days ago she started with sneezing. She had a slight sore throat that is better. She has had a slight cough but never been productive. Today she started with significant myalgias and this is what really prompted her to come in. She states she aches all over. Her appetite is down but she is not having nausea and is able to eat and drink. No diarrhea. Although she has history of chronic headaches she is not having much of a headache now. She was exposed to her boyfriend who has had some viral type symptoms and a sinus infection. Patient is on no medications, no allergies, no surgeries. [facility] History Hx of migraines Home Medications NK 01/03/23 [History Last Taken Unknown] Allergy/AdvReac Type Severity Reaction Status Date / Time No Known Allergies Allergy Verified 01/03/23 21:37 Social History Smoking Status: Never smoker ROS ROS ED Constitutional Constitutional ED: Reports chills, fever(s), subjective and other Details: Highest temperature at home was 100.2. We have a 100.9 here. Eyes Eyes: Denies blurry vision ENT ENT ED: Reports rhinorrhea and sore throat; Denies ear pain Cardiovascular Cardiovascular: Denies chest pain Respiratory/Chest Respiratory/Chest: Reports cough; Denies dyspnea or sputum Gastrointestinal Gastrointestinal: Denies diarrhea or vomiting Musculoskeletal Musculoskeletal: Reports myalgias Integumentary Denies rash Neurologic Neurologic: Denies paresthesias or weakness Endocrine Endocrinology: Reports polydipsia; Denies polyuria Hematologic/Lymphati c Hematologic/Lymphati c: Denies lymphadenopathy Allergic/Immunologic Allergic/Immunologic ED: Denies urticaria EXAM Physical Exam Narrative Exam Narrative: CONSTITUTIONAL: Patient is nontoxic in appearance. The patient looks comfortable. Work of breathing looks normal. She is wrapped up in multiple blankets as she feels chilled. HEENT: No notable trauma. Mucous membranes do look a bit dry.. No sinus tenderness. No indication of pain with swallowing. No exudate or erythema. EYES: No conjunctival injection. No icterus. NECK:No JVD. No stridor. CARDIOVASCULAR: Regular rate. Regular rhythm. No notable murmur. No JVD. RESPIRATORY: No respiratory distress. Breathing is unlabored. No wheezes. No rhonchi. No rales. No pain with a deep breath. No chest wall tenderness. Saturations are normal at 100% on room air showing no hypoxia. GASTROINTESTINAL: Not distended. Bowel sounds are normal. No tenderness. No guarding. No rebound. GENITOURINARY: No tenderness over the bladder. MUSCULOSKELETAL: Atraumatic. No peripheral edema. NEUROLOGICAL: Patient is alert and appropriate. No focal deficit noted. SKIN: No noted rashes. No diaphoresis. PSYCHIATRIC: Patient is calm. Mood is appropriate. Const Vital Signs: 01/03/23 21:37 01/03/23 21:40 01/03/23 21:43 Temperature 100.6 F H 100.9 F H Temperature Source Temporal Temporal Pulse Rate 90 90 Respiratory Rate 24 H 24 H Respiratory Effort Normal Non-Labored Respiratory Pattern Normal Blood Pressure 148/83 H 148/83 H Blood Pressure Mean 104 104 Pulse Ox 100 100 MDM MDM MDM Narrative Medical decision making narrative: With the patient's cough and fever we will do chest x-ray. I will send off viral studies. We will give her some fluids as she is drinking less and does appear dry. We will give her some Toradol for fevers and myalgias. She intermittently says she was nauseated I will give her some Zofran just to see if this helps her symptoms a bit. My independent interpretation of the patient's PA and lateral chest x-ray shows no acute process and final reading is similar. Patient's COVID is positive. Patient's influenza is negative. Patient CBC is normal. Patient's metabolic panel shows no marked abnormalities. Final reading of the patient's chest x-ray shows no acute process. Patient feels bit better with some Toradol and fluids. I explained that she does have COVID. I do not think she requires Paxlovid. I think time rest meds for fever are appropriate. She should continue to make sure she eats and drinks fluids. I will write for some Zofran to see if we can help if she develops more nausea. We d (more content not included)... Normal [facility] Hematocrit Auto (Bld) [Volum e fraction]Ordered By: Gareth Apple on 01-03-2023 Hematocrit (Bld) [Volume fraction] 38.8 % 37-47 [facility] Influenza virus A and B and SARS-CoV-2 (COVID-19) Ag panel - Upper respiratory specimOrdered By: Gareth Apple on 01-03-2023 SARS-CoV-2 & FLU Antigen (Rapid) SARS-CoV-2 (COVID 19) [facility] - Chemistry and C hemistry - challengeOrdered By: Gareth Apple on 01-03-2023 CO2 [Moles/Vol] 26.0 mmol/L 21.0-32.0 [facility] Urea nitrogen/Creatinine [Mass ratio] 12.8 mg/mg 10-20 [facility] - Hematology and Cell countsOrdered By: Gareth Apple on 01-03-2023 Erythrocyte distribution width (RBC) [Entitic vol] 38.5 fL 35.1-43.9 [facility] Erythrocyte distribution width (RBC) [Ratio] 12.5 % 11.6-14.6 [facility] Immature granulocytes/100 WBC (Bld) 0.300 % 0.0-0.9 [facility] Comment on above: IG% - Immature Granu locytes (promyelocytes, myelocytes and metamyelocytes) > 1% indicates that a LEFT SHIFT is Present. MCH (RBC) [Entitic mass] 27.9 pg 27.0-32.0 [facility] Nucleated RBC/100 WBC (Bld) [Ratio] 0 % 0-5 [facility] [Mass/Vol]Or dered By: Gareth Apple on 01-03-2023 MCHC (RBC) [Mass/Vol] 33.0 g/dL 32-36 [facility] No Panel InformationOrdered By: Gareth Apple on 01-03-2023 Estimated Creatinine Clearance Calc 97.37 ml/min [facility] Estimated GFR (MDRD) Amer 100 mL/min >60 [facility] Comment on above: GFR Calc Estimated GFR (MDRD) Non-Af Amer 83 mL/min >60 [facility] Comment on above: Non- GFR Calc Platelets bldOrdered By: Vicente Apple on 01-03-2023 Platelets (Bld) [#/Vol] 262 10*3/uL 150-450 [facility] Serum or plasma calcium carla urement (mass/volume)Ordered By: Gareth Apple on 01-03-2023 Calcium [Mass/Vol] 8.9 mg/dL 8.5-10.1 [facility] Serum or plasma creatinine m easurement (mass/volume)Ordered By: Gareth Apple on 01-03-2023 Creatinine [Mass/Vol] 0.86 mg/dL 0.55-1.02 [facility] Comment on above: The validity of the calculated GFR & GFRAA in patients over 70 years has not been determined. Clinical correlation is essential. Serum or plasma urea nitroge n measurement (mass/volume)Ordered By: Gareth Apple on 01-03-2023 Urea nitrogen [Mass/Vol] 11 mg/dL 7-18 [facility] Thin prep Papanicolaou smear with manual screeningOrdered By: Gareth Apple on 01-03-2023 Thin prep Papanicolaou smear with manual screening 5 5-15 [facility] XR WRIST GENERAL 3V PA/LAT/O BL RIGHTon 10-03-2022 [facility] XR Wrist - right PA and Late ral and Obliqueon 10-03-2022 IMPRESSION: No acute osseous abnormality Manager Android: [email or web address] Transcribe Date/Time: Oct 03 2022 4:13P Dictated by : ARTHUR RAIN MD This examination was interpreted and the report reviewed and electronically signed by: ARTHUR RAIN MD on Oct 03 2022 4:14PM [facility] DIVISION OF RADIOLOGY * * *Final Report* * * DATE OF EXAM: Oct 03 2022 4:12PM WOX 5271 - XR WRIST 3V PA/LAT/OBL RT / PROCEDURE REASON: Acute wrist pain, right * * * * Physician Interpretation * * * * EXAMINATION: XR WRIST 3V PA/LAT/OBL RT CLINICAL HISTORY: Right wrist pain Technique: XR WRIST 3V PA/LAT/OBL RT -- RIGHT with 3 views on 3 images Comparison: None RESULT: No acute fracture or dislocation. Joint spaces are maintained. DIVISION OF RADIOLOGY Provider, [facility] [place] [facility] [place] - 10/03/2022 * * *Final Report* * * DATE OF EXAM: Oct 03 2022 4:12PM WOX 5271 - XR WRIST 3V PA/LAT/OBL RT / PROCEDURE REASON: Acute wrist pain, right * * * * Physician Interpretation * * * * EXAMINATION: XR WRIST 3V PA/LAT/OBL RT CLINICAL HISTORY: Right wrist pain Technique: XR WRIST 3V PA/LAT/OBL RT -- RIGHT with 3 views on 3 images Comparison: None RESULT: No acute fracture or dislocation. Joint spaces are maintained. IMPRESSION IMPRESSION: No acute osseous abnormality Manager Android: [email or web address] Transcribe Date/Time: Oct 03 2022 4:13P Dictated by : ARTHUR RAIN MD This examination was interpreted and the report reviewed and electronically signed by: ARTHUR RAIN MD on Oct 03 2022 4:14PM [facility] Rad[facility]ative[facility] - right PA and Late ral and ObliqueOrdered By: Cc Provider on 10-03-2022 [facility] 12 Lead EKGon 05-30-2022 12 Lead EKG [facility] Cardiovascular Services [address] [place] [address] 12 Lead EKG 05/30/22 1034 MR#: [id number] Acct: [id number] Name: CRISTINA JEAN Rep #: [id number] : 1995 26 From: Igor Banks MD Attending Dr: Status: DEP ER Ordering Dr: Hunter Campos DO Date: 04/24/23 Location: ED Sex: F C Admitted: Test Reason : DIZZY Blood Pressure : / mmHG Vent. Rate : 069 BPM Atrial Rate : 069 BPM P-R Int : 148 ms QRS Dur : 088 ms QT Int : 400 ms P-R-T Axes : 012 015 006 degrees QTc Int : 428 ms Normal sinus rhythm Normal ECG Confirmed by KRISTI ODEN, IGOR ([id number]), clinical editor LOUIE SILVEIRA ([id number]) on 06/02/2022 9:19:40 AM Referred By: Confirmed By:IGOR BANKS MD 06/02/22918 Date Igor Banks MD CC: Dr. Jett Burgos DO; Dr. Hunter Campos DO Signed Normal [facility] Absolute lymphocyte countOrd ered By: Dr. Campos on 05-30-2022 Lymphocytes Auto (Unsp spec) [#/Vol] 2.42 10*3/uL 0.83-4.51 [facility] Basic Metabolic Profile (BMP )on 05-30-2022 BUN/CRE 23.7 RATIO High 10-20 [facility] Comment on above: Order Comment: 'TROP ' Serial specimen #1, #2 or #3: 1 Performed By: #### L 500.2500, L100.0100, L501.4020 #### [facility] [address] [place], [address] CA,Total 9.0 mg/dL Normal 8.5-10.1 [facility] Comment on above: Order Comment: 'TROP ' Serial specimen #1, #2 or #3: 1 Performed By: #### L 500.2500, L100.0100, L501.4020 #### [facility] [address] [place], [address] Chloride [Moles/Vol] 108 mmol/L High 98-107 [facility] Comment on above: Order Comment: 'TROP ' Serial specimen #1, #2 or #3: 1 Performed By: #### L 500.2500, L100.0100, L501.4020 #### [facility] [address] [place], [address] CO2 [Moles/Vol] 24.0 mmol/L Normal 21.0-32.0 [facility] Comment on above: Order Comment: 'TROP ' Serial specimen #1, #2 or #3: 1 Performed By: #### L 500.2500, L100.0100, L501.4020 #### [facility] [address] [place], [address] Creatinine [Mass/Vol] 0.80 mg/dL Normal 0.55-1.02 [facility] Comment on above: Order Comment: 'TROP ' Serial specimen #1, #2 or #3: 1 Result Comment: The validity of the calculated GFR GFRAA in patients over 70 years has not been determined. Clinical correlation is essential. Performed By: #### L 500.2500, L100.0100, L501.4020 #### [facility] [address] [place], [address] ECRCL 105.61 ml/min Normal [facility] Comment on above: Order Comment: 'TROP ' Serial specimen #1, #2 or #3: 1 Performed By: #### L 500.2500, L100.0100, L501.4020 #### [facility] [address] [place], [address] EST GFR - AA 109 mL/min Normal >60 [facility] Comment on above: Order Comment: 'TROP ' Serial specimen #1, #2 or #3: 1 Result Comment: Afri can Lao GFR Calc Performed By: #### L 500.2500, L100.0100, L501.4020 #### [facility] [address] [place], [address] GAP 5 Normal 5-15 [facility] Comment on above: Order Comment: 'TROP ' Serial specimen #1, #2 or #3: 1 Performed By: #### L 500.2500, L100.0100, L501.4020 #### [facility] [address] [place], [address] GFR/1.73 sq M.predicted among non-blacks MDRD (S/P/Bld) [Vol rate/Area] 90 mL/min/{1.73_m2} Normal >60 [facility] Comment on above: Order Comment: 'TROP ' Serial specimen #1, #2 or #3: 1 Result Comment: Non- GFR Calc Performed By: #### L 500.2500, L100.0100, L501.4020 #### [facility] [address] [place], [address] Glucose [Mass/Vol] 93 mg/dL Normal 74-106 [facility] Comment on above: Order Comment: 'TROP ' Serial specimen #1, #2 or #3: 1 Performed By: #### L 500.2500, L100.0100, L501.4020 #### [facility] [address] [place], [address] Potassium [Moles/Vol] 3.6 mmol/L Normal 3.5-5.1 [facility] Comment on above: Order Comment: 'TROP ' Serial specimen #1, #2 or #3: 1 Performed By: #### L 500.2500, L100.0100, L501.4020 #### [facility] [address] [place], [address] Sodium [Moles/Vol] 137 mmol/L Normal 136-145 [facility] Comment on above: Order Comment: 'TROP ' Serial specimen #1, #2 or #3: 1 Performed By: #### L 500.2500, L100.0100, L501.4020 #### [facility] [address] [place], [address] Urea nitrogen [Mass/Vol] 19 mg/dL High 7-18 [facility] Comment on above: Order Comment: 'TROP ' Serial specimen #1, #2 or #3: 1 Performed By: #### L 500.2500, L100.0100, L501.4020 #### [facility] [address] [place], [address] Basophil percentageOrdered B y: Dr. Campos on 05-30-2022 Basophils/100 WBC (Bld) 0.6 % 0-1 [facility] Chloride [Moles/Vol] 108 mmol/L 98-107 [facility] Eosinophils/100 WBC (Bld) 1.5 % 0-5 [facility] Glucose [Mass/Vol] 93 mg/dL 74-106 [facility] Neutrophils (Bld) [#/Vol] 4.1 10*3/uL 2.0-7.7 [facility] Neutrophils/100 WBC (Bld) 57.0 % 47-70 [facility] Potassium [Moles/Vol] 3.6 mmol/L 3.5-5.1 [facility] Sodium [Moles/Vol] 137 mmol/L 136-145 [facility] WBC (Bld) [#/Vol] 7.1 10*3/uL 4.4-11.0 [facility] Blood erythrocytes count (nu mber/volume)Ordered By: Dr. Campos on 05-30-2022 RBC (Bld) [#/Vol] 4.85 10*6/uL 4.2-5.4 [facility] Blood hemoglobin measurement (mass/volume)Ordered By: Dr. Campos on 05-30-2022 Hemoglobin (Bld) [Mass/Vol] 13.8 g/dL 12.0-15.0 [facility] Blood lymphocytes/100 leukoc ytesOrdered By: Dr. Campos on 05-30-2022 Lymphocytes/100 WBC (Bld) 33.9 % 19-41 [facility] Blood monocytes/100 leukocyt esOrdered By: Dr. Campos on 05-30-2022 Monocytes/100 WBC (Bld) 6.9 % 0-10 [facility] Blood platelet mean volumeOr dered By: Dr. Campos on 05-30-2022 Platelet mean volume (Bld) [Entitic vol] 9.8 fL 6.2-12.0 [facility] CBC W/Diff, Automatedon 05-08 Absolute Lymph 2.42 X10 3/uL Normal 0.83-4.51 [facility] Comment on above: Performed By: #### L 500.2500, L100.0100, L501.4020 #### [facility] [address] [place], [address] Absolute Neut 4.1 X10 3/uL Normal 2.0-7.7 [facility] Comment on above: Performed By: #### L 500.2500, L100.0100, L501.4020 #### [facility] [address] [place], [address] Basophils/100 WBC (Bld) 0.6 % Normal 0-1 [facility] Comment on above: Performed By: #### L 500.2500, L100.0100, L501.4020 #### [facility] [address] [place], [address] Eosinophils/100 WBC (Bld) 1.5 % Normal 0-5 [facility] Comment on above: Performed By: #### L 500.2500, L100.0100, L501.4020 #### [facility] [address] [place], [address] Erythrocyte distribution width (RBC) [Ratio] 12.7 % Normal 11.6-14.6 [facility] Comment on above: Performed By: #### L 500.2500, L100.0100, L501.4020 #### [facility] [address] [place], [address] Hematocrit (Bld) [Volume fraction] 42.4 % Normal 37-47 [facility] Comment on above: Performed By: #### L 500.2500, L100.0100, L501.4020 #### [facility] [address] [place], [address] Hemoglobin (Bld) [Mass/Vol] 13.8 g/dL Normal 12.0-15.0 [facility] Comment on above: Performed By: #### L 500.2500, L100.0100, L501.4020 #### [facility] [address] [place], [address] IG% 0.100 Normal 0.0-0.9 [facility] Comment on above: Result Comment: IG% - Immature Granulocytes (promyelocytes, myelocytes and metamyelocytes) > 1% indicates that a LEFT SHIFT is Present. Performed By: #### L 500.2500, L100.0100, L501.4020 #### [facility] [address] [place], [address] Lymphocytes/100 WBC (Bld) 33.9 % Normal 19-41 [facility] Comment on above: Performed By: #### L 500.2500, L100.0100, L501.4020 #### [facility] [address] [place], [address] MCH (RBC) [Entitic mass] 28.5 pg Normal 27.0-32.0 [facility] Comment on above: Performed By: #### L 500.2500, L100.0100, L501.4020 #### [facility] [address] [place], [address] MCHC (RBC) [Mass/Vol] 32.5 g/dL Normal 32-36 [facility] Comment on above: Performed By: #### L 500.2500, L100.0100, L501.4020 #### [facility] [address] [place], [address] MCV (RBC) [Entitic vol] 87.4 fL Normal 81-99 [facility] Comment on above: Performed By: #### L 500.2500, L100.0100, L501.4020 #### [facility] [address] [place], [address] Monocytes/100 WBC (Bld) 6.9 % Normal 0-10 [facility] Comment on above: Performed By: #### L 500.2500, L100.0100, L501.4020 #### [facility] [address] [place], [address] Neutrophils/100 WBC (Bld) 57.0 % Normal 47-70 [facility] Comment on above: Performed By: #### L 500.2500, L100.0100, L501.4020 #### [facility] [address] [place], [address] Nucleated RBC (Bld) [#/Vol] 0 10*3/uL Normal 0-5 [facility] Comment on above: Performed By: #### L 500.2500, L100.0100, L501.4020 #### [facility] [address] [place], [address] Platelet mean volume (Bld) [Entitic vol] 9.8 fL Normal 6.2-12.0 [facility] Comment on above: Performed By: #### L 500.2500, L100.0100, L501.4020 #### [facility] [address] [place], [address] Platelets (Bld) [#/Vol] 362 10*3/uL Normal 150-450 [facility] Comment on above: Performed By: #### L 500.2500, L100.0100, L501.4020 #### [facility] [address] [place], [address] RBC (Bld) [#/Vol] 4.85 10*6/uL Normal 4.2-5.4 [facility] Comment on above: Performed By: #### L 500.2500, L100.0100, L501.4020 #### [facility] [address] [place], [address] RDW SD 40.7 fl Normal 35.1-43.9 [facility] Comment on above: Performed By: #### L 500.2500, L100.0100, L501.4020 #### [facility] [address] [place], [address] WBC (Bld) [#/Vol] 7.1 10*3/uL Normal 4.4-11.0 [facility] Comment on above: Performed By: #### L 500.2500, L100.0100, L501.4020 #### [facility] [address] [place], [address] Chest 1 View (Portable)on Chest 1 View (Portable) [place] [facility] Imaging Services [address] [place] [address] Chest 1 View (Portable) MR#: [id number] Acct: [id number] Name: CRISTINA JEAN Rep #: [id number] : 1995 F 26 From: Barrera acevedo MD PCP: Dr. Jett Burgos, Status: REG ER Study: Chest 1 View (Portable) Date of Exam: 05/30/22 Exam# [id number] Ordering Dr: Hunter Campos DO STUDY: X-RAY CHEST REASON FOR EXAM: Female, 26 years old. Chest pain. Dizziness. TECHNIQUE: Single AP portable view of the chest. COMPARISON: Comparison is made with prior study April 16, 2019. FINDINGS: EKG electrodes are seen. The lungs are clear and expanded. There is no demonstrated pleural abnormality. Normal size heart. Normal mediastinum and rimma. Normal visualized pulmonary arteries. Normal visualized aortic arch and descending thoracic aorta. Normal visualized thoracic spine. Normal visualized ribs, clavicles, and shoulders. There is no demonstrated abnormality of the visualized soft tissue structures of the upper abdomen. RAD/Chest 1 View (Portable) IMPRESSION: Normal x-ray examination of the chest. Electronically Signed: Barrera Monge MD at 11:02 EDT , CC: Dr. Jett Burgos DO; Dr. Hunter Campos DO Manager Android: Signed Normal [facility] Determination of erythrocyte mean corpuscular volume (MCV)Ordered By: Dr. Campos on 05-30-2022 MCV (RBC) [Entitic vol] 87.4 fL 81-99 [facility] Emergency Department Summary on 05-30-2022 Emergency Department Summary [facility] Medical Records Department [address] [place] [id number] Emergency Department Summary 05/30/22 MR#: [id number] Acct: [id number] Name: CRISTINA JEAN Rep #: [id number] : 1995 26 From: Hunter Campos DO PCP: Dr. Jett Burgos DO Status:REG ER Location: ED HPI History of Present Illness Chief Complaint: Dizziness Narrative Narrative: 26-year-old female here for dizziness, nausea, shortness of breath. The patient states symptoms started feeling this way this morning. 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 She notes she ate pretzels, vitamin water and started feeling better. She states she did not eat breakfast this morning. She does note she feels short of breath now. The patient states this occurred just prior to arrival. The dizziness and nausea have improved. States dizziness is worse upon standing. Denies any visual changes, gait abnormality or ataxia. Denies any headache or recent head trauma. Denies any recent bleeding diathesis. Denies any chest pain or palpitations. Denies any recent drug use. The patient denies recent surgery in the last 4 weeks or immobilization in the last 3 days, denies previous diagnosis of DVT or PE, hemoptysis, unilateral leg swelling or malignancy with treatment the last 6 months. No estrogen use noted. [facility] Medical History Hx of migraines Home Medications topiramate 25 mg tablet 25 mg PO DAILY 05/30/22 [History Last Taken Unknown] Allergy/AdvReac Type Severity Reaction Status Date / Time No Known Allergies Allergy Verified 05/30/22 10:00 Social History Smoking Status: Never smoker ROS ROS ED ROS Narrative Denies Constitutional: Denies fever HEENT: Denies sore throat Neck: Denies neck pain Cardiovascular: Denies chest pain, syncope Respiratory: Endorses shortness of breath GI: Denies vomiting or abdominal pain, endorses nausea : Denies changes in urinary habits Musculoskeletal: Denies muscle or joint pain Neurologic: Denies numbness weakness or loss of sensation, endorses dizziness initially that is since resolved, endorses upon standing. Denies dizziness at rest on my assessment Skin denies rash EXAM Physical Exam Narrative Exam Narrative: Nursing triage notes reviewed, Vital signs reviewed Constitutional: please see mdm HENT: MMM Eyes: Pupils equal round and reactive to light, Extraocular muscles intact Neck: No stridor, no JVD, full neck ROM Lungs: Clear to auscultation, No wheezing or rales. No increased work of breathing, no conversational dyspnea, no accessory muscle use, no nasal flaring. No respiratory distress noted Heart: Regular rate and rhythm, No murmurs, No rubs and No gallops, 2+ distal pulses (radial, femoral, posterior tibial) in all extremities Abdomen: Soft, there is no tenderness, rigidity, rebound or guarding, no obvious peritoneal signs, no palpable pulsatile abdominal masses, no auscultated abdominal bruit : No CVAT Extremities: No edema Neuro: Alert and oriented x3, neuro exam at baseline, cranial nerves II through XII are intact. No pain with extraocular muscle movement. There is negative test of skew. Normal speech. 5 of 5 strength in upper and lower extremities in flexion extension. Intact sensation to light touch in upper and lower extremity dermatomes. No truncal or extremity ataxia (intact coordination with finger-nose, heel-liao). No dysdiadochokinesia. Normal gait. 2+ reflexes. No meningeal signs. Negative Babinski. NIH of 0. No nystagmus (vertical horizontal or otherwise) Skin: No rash or lesions noted Const Vital Signs: 05/30/22 09:57 05/30/22 10:32 Temperature 97.6 F L Temperature Source Temporal Pulse Rate 68 Respiratory Rate 16 Respiratory Effort Normal Respiratory Pattern Normal Blood Pressure 126/82 H Blood Pressure Mean 96 Pulse Ox 98 Oxygen Delivery Method Room Air MDM MDM MDM Narrative Medical decision making narrative: Chief Complaint: Shortness of breath, nausea, dizziness External records reviewed: No recent cardiac catheterization, stress test or echocardiogram noted in the chart MDM: Patient was hemodynamically stable, afebrile, nontoxic-appearing. Patient no focal neurologic deficits to suggest posterior circulation CVA. Lungs were clear no focal cardiopulmonary abnormalities. I considered the following differential diagnosis: Viral illness, migraine headache, posterior circulation CVA, dehydration, pneumonia, PE, ACS, arrhythmia I considered obtaining advanced imaging of the brain however patient no focal deficits, no dizziness at rest, NIH of 0 low suspicion for posterior circulation CVA causing dizziness. I (more content not included)... Normal [facility] Hematocrit Auto (Bld) [Volum e fraction]Ordered By: Dr. Campos on 05-30-2022 Hematocrit (Bld) [Volume fraction] 42.4 % 37-47 [facility] L501.4020on 05-30-2022 TROPONIN-I HS < 3 Low 3.0-54.0 [facility] Comment on above: Order Comment: 'TROP ' Serial specimen #1, #2 or #3: 1 Result Comment: Plea se Note: New Test Units and Gender Specific Reference Ranges. For more information see Policy Stat Procedure [place] High Sensitivity Troponin (TNIH) and attachments. Performed By: #### L 500.2500, L100.0100, L501.4020 #### [facility] [address] [place], [place], [id number] Laboratory - Chemistry and C hemistry - challengeOrdered By: Dr. Campos on 05-30-2022 CO2 [Moles/Vol] 24.0 mmol/L 21.0-32.0 [facility] Urea nitrogen/Creatinine [Mass ratio] 23.7 mg/mg 10-20 [facility] HCG ( test) Ql (U) Negative [facility] Comment on above: Very dilute urine sp ecimens, as indicated by a low specificgravity, may not contain software support representative levels of hCG. If is still suspected, a first morning urinespecimen should be collected 48 hours later and tested. Laboratory - Hematology and Cell countsOrdered By: Dr. Campos on 05-30-2022 Erythrocyte distribution width (RBC) [Entitic vol] 40.7 fL 35.1-43.9 [facility] Erythrocyte distribution width (RBC) [Ratio] 12.7 % 11.6-14.6 [facility] Immature granulocytes/100 WBC (Bld) 0.100 % 0.0-0.9 [facility] Comment on above: IG% - Immature Granu locytes (promyelocytes, myelocytes and metamyelocytes) > 1% indicates that a LEFT SHIFT is Present. MCH (RBC) [Entitic mass] 28.5 pg 27.0-32.0 [facility] Nucleated RBC/100 WBC (Bld) [Ratio] 0 % 0-5 [facility] MCHC Auto (RBC) [Mass/Vol]Or dered By: Dr. Campos on 05-30-2022 MCHC (RBC) [Mass/Vol] 32.5 g/dL 32-36 [facility] No Panel InformationOrdered By: Dr. Campos on 05-30-2022 Estimated Creatinine Clearance Calc 105.61 ml/min [facility] Estimated GFR (MDRD) Amer 109 mL/min >60 [facility] Comment on above: GFR Calc Estimated GFR (MDRD) Non-Af Amer 90 mL/min >60 [facility] Comment on above: Non- GFR Calc Troponin I High Sensitivity < 3 pg/mL 3.0-54.0 [facility] Comment on above: Please Note: New Trina t Units and Gender Specific Reference Ranges. For more information see Policy Stat Procedure [place] High Sensitivity Troponin (TNIH) and attachments. Platelets bldOrdered By: Dr. Campos on 05-30-2022 Platelets (Bld) [#/Vol] 362 10*3/uL 150-450 [facility] ,Urineon 05-30-2022 Beta HCG ( test) Ql (U) Negative Normal [facility] Comment on above: Result Comment: Very dilute urine specimens, as indicated by a low specific gravity, may not contain software support representative levels of hCG. If is still suspected, a first morning urine specimen should be collected 48 hours later and tested. Performed By: #### L 400.7600 #### [facility] [address] [place], [address] Serum or plasma calcium carla urement (mass/volume)Ordered By: Dr. Campos on 05-30-2022 Calcium [Mass/Vol] 9.0 mg/dL 8.5-10.1 [facility] Serum or plasma creatinine m easurement (mass/volume)Ordered By: Dr. Campos on 05-30-2022 Creatinine [Mass/Vol] 0.80 mg/dL 0.55-1.02 [facility] Comment on above: The validity of the calculated GFR & GFRAA in patients over 70 years has not been determined. Clinical correlation is essential. Serum or plasma urea nitroge n measurement (mass/volume)Ordered By: Dr. Campos on 05-30-2022 Urea nitrogen [Mass/Vol] 19 mg/dL 7-18 [facility] Thin prep Papanicolaou smear with manual screeningOrdered By: Dr. Campos on 05-30-2022 Thin prep Papanicolaou smear with manual screening 5 5-15 [facility] XR Ankle - right AP and Late ral and obliqueon 05-24-2022 IMPRESSION: Ankle joint effusion and lateral soft tissue swelling without radiographic evidence of acute osseous injury. Manager Android: [facility] Transcribe Date/Time: May 24 2022 4:48P Dictated by : DAINA RAMOS MD This examination was interpreted and the report reviewed and electronically signed by: DAINA RAMOS MD on May 24 2022 4:48PM [facility] DIVISION OF RADIOLOGY * * *Final Report* * * DATE OF EXAM: May 24 2022 4:47PM WOX 5297 - XR ANKLE 3V AP/LAT/OBL RT / PROCEDURE REASON: Acute right ankle pain * * * * Physician Interpretation * * * * TITLE: XR ANKLE 3V AP/LAT/OBL RT CLINICAL INDICATION: Ankle pain TECHNIQUE: 3 view radiographic study of the right ankle COMPARISON: None FINDINGS: Lateral soft tissue swelling and ankle joint effusion present. No acute fracture or dislocation identified. Plantar calcaneal enthesophyte. DIVISION OF RADIOLOGY Provider, [facility] [place] [facility] [place] - 05/24/2022 * * *Final Report* * * DATE OF EXAM: May 24 2022 4:47PM WOX 5297 - XR ANKLE 3V AP/LAT/OBL RT / PROCEDURE REASON: Acute right ankle pain * * * * Physician Interpretation * * * * TITLE: XR ANKLE 3V AP/LAT/OBL RT CLINICAL INDICATION: Ankle pain TECHNIQUE: 3 view radiographic study of the right ankle COMPARISON: None FINDINGS: Lateral soft tissue swelling and ankle joint effusion present. No acute fracture or dislocation identified. Plantar calcaneal enthesophyte. IMPRESSION IMPRESSION: Ankle joint effusion and lateral soft tissue swelling without radiographic evidence of acute osseous injury. Manager Android: [facility] Transcribe Date/Time: May 24 2022 4:48P Dictated by : DAINA RAMOS MD This examination was interpreted and the report reviewed and electronically signed by: DAINA RAMOS MD on May 24 2022 4:48PM EST [facility] Radiology Study observation (narrative) [facility] XR Ankle - right AP and Late ral and obliqueOrdered By: [facility] [place] Provider on 05-24-2022 [facility] Emergency Department Summary on 04-15-2022 Emergency Department Summary [facility] Medical Records Department [address] [place] [address] Emergency Department Summary 04/15/22 MR#: [id number] Acct: [id number] Name: CRISTINA JEAN Rep #: [id number] : 1995 26 From: Bruce Mercado DO PCP: Dr. Jett Burgos, Status:REG ER Location: ED HPI History of Present Illness Chief Complaint: Dental Narrative Narrative: 26-year-old female presenting with right-sided maxillary dental pain and right-sided facial swelling. She notes that she has a cracked tooth in this region. She has a dental follow-up next Bon. She states the pain is increasing. She now has facial swelling. She has tried Tylenol and ibuprofen without relief. She has now developed some irritation to the left lower gums she wants to have assessed as well. No trouble breathing or swallowing. No fevers. No nausea or vomiting. [facility] Medical History Hx of migraines Home Medications cyclobenzaprine 10 mg tablet 10 mg PO QHS PRN PRN Muscle Spasm #5 TABLETS 11/22/20 [Rx Last Taken Unknown] hydrocodone-acetamin ophen 5-325mg 5mg-325mg 1 tab PO Q6H PRN PRN Pain 3 days #10 TABLETS 11/22/20 [Rx Last Taken Unknown] amoxicillin 875 mg-potassium clavulanate 125 mg tablet 1 tab PO BID #20 tabs 04/15/22 [Rx Last Taken Unknown] hydrocodone-acetamin ophen 5-325mg 5mg-325mg 1 tab PO Q6H 3 days #12 TABLETS 04/15/22 [Rx Last Taken Unknown] Allergy/AdvReac Type Severity Reaction Status Date / Time No Known Allergies Allergy Verified 04/15/22 00:06 Social History Smoking Status: Never smoker ROS [facility] ED Constitutional Constitutional ED: Denies chills, fever(s) or sweats Eyes Eyes: Denies blurry vision or change in vision ENT ENT ED: Reports other Details: Dental pain ; Denies ear pain Cardiovascular Cardiovascular: Denies chest pain, palpitations or racing heartbeat Respiratory/Chest Respiratory/Chest: Denies cough, dyspnea or sputum Gastrointestinal Gastrointestinal: Denies abdominal pain, constipation, diarrhea, nausea or vomiting Genitourinary Genitourinary ED: Denies dysuria, hematuria or urinary frequency Musculoskeletal Musculoskeletal: Denies arthralgias, myalgias or neck pain Integumentary Denies abscess, Abrasions or rash Neurologic Neurologic: Denies headache(s), paresthesias or weakness Psychiatric Psychiatric: Denies anxiety, depression, suicidal ideation or suicidal thoughts Endocrine Endocrinology: Denies polydipsia or polyuria EXAM Physical Exam Const Vital Signs: 04/15/22 00:03 Temperature 98.0 F Temperature Source Temporal Pulse Rate 72 Respiratory Rate 16 Blood Pressure 141/89 H Blood Pressure Mean 106 Pulse Ox 100 Oxygen Delivery Method Room Air Positive well nourished General Appearance ED: NAD HEENT normocephalic Face and Sinus: facial edema right Nose: external nose normal Mouth ED: Yes lips normal, Yes tongue normal, Yes salivary gland normal, No drooling, No trismus and No restricted motion Mouth: lips normal, tongue normal, salivary gland normal, No drooling, No trismus and No restricted motion Teeth and Gingiva: abnormal tooth and associated gingiva Positive for tenderness (Tooth #15 tender to percussion.) and gingiva abnormal Positive for gingival edema (Small area of edema located adjacent to tooth #35. No fluctuance. No drainage.) Eyes PERRL Neck no lymphadenopathy and supple General: normal visual inspection; Negative for anterior neck swelling or submandibular swelling Resp normal respiratory effort Neuro oriented x3 and CN's II-XII intact bilaterally Sensorium / Orientation: alert Motor Exam: strength 5/5 throughout Psych mental status grossly normal MDM MDM MDM Narrative Medical decision making narrative: Patient with dental pain. I suspect she has an apical infection at tooth #15. The gingiva around this area looks looks okay however. The area of concern on the gingiva is adjacent to tooth #35. There is no percussion tenderness to this tooth. There is a small area which is red and tender but without fluctuance. We will start the patient on Augmentin. She is also given [place] for pain. Return precautions discussed. Impression: 1. Dental infection 2. Gingivitis Discharge Plan Triage Chief Complaint: Dental ED Provider: Bruce Mercado Dx/Rx/DC Orders Instructions: ED Dental Pain Prescriptions: New amoxicillin-pot clavulanate 875-125 mg tablet 1 tab PO BID Qty: 20 0RF hydrocodone-acetamin ophen 5-325 mg tablet 1 tab PO Q6H 3 Days Qty: 12 0RF No Action cyclobenzaprine [cyclobenzaprine] 10 MG tablet 10 mg PO QHS PRN PRN (Reason: Muscle Spasm) Qty: 5 0RF hydrocodone-acetamin ophen [hydrocodone-acetami nophen] 1 TA (more content not included)... Normal [facility] Vital Signs Date Time Vital Sign Value Performing Clinician Facility 07-14-2024 12:35-0400 Body mass index (BMI) [Ratio] 39.12 kg/m2 Brian Pride PHYSICIAN GENERAL PRACTICE.AGRICULTURAL TECHNICIAN Work Phone: [facility] 07-14-2024 12:35-0400 Body temperature 98.2 [degF] [facility] PHYSICIAN GENERAL PRACTICE.AGRICULTURAL TECHNICIAN Work Phone: [facility] 07-14-2024 12:35-0400 Body weight 116.7 kg [facility]renton [facility] PHYSICIAN GENERAL PRACTICE.AGRICULTURAL TECHNICIAN Work Phone: [facility] 07-14-2024 12:35-0400 Diastolic blood pressure 90 mm[Hg] [facility] PHYSICIAN GENERAL PRACTICE.AGRICULTURAL TECHNICIAN Work Phone: [facility] 07-14-2024 12:35-0400 Heart rate 75 /min [facility] PHYSICIAN GENERAL PRACTICE.AGRICULTURAL TECHNICIAN Work Phone: [facility] 07-14-2024 12:35-0400 Respiratory rate 18 /min [facility] PHYSICIAN GENERAL PRACTICE.AGRICULTURAL TECHNICIAN Work Phone: [facility] 07-14-2024 12:35-0400 SaO2% (BldA) [Mass fraction] 97 % [facility] PHYSICIAN GENERAL PRACTICE.AGRICULTURAL TECHNICIAN Work Phone: [facility] 07-14-2024 12:35-0400 Systolic blood pressure 126 mm[Hg] [facility]renton [facility] PHYSICIAN GENERAL PRACTICE.AGRICULTURAL TECHNICIAN Work Phone: [facility] 06-06-2023 15:58-0400 Body height 172.7 cm Jett Burgos DO Work Phone: [facility] 06-06-2023 15:58-0400 Body mass index (BMI) [Ratio] 37.56 kg/m2 Jett Burgos DO Work Phone: [facility] 06-06-2023 15:58-0400 Body weight 112.04 kg Jett Burgos DO Work Phone: [facility] 06-06-2023 15:58-0400 Diastolic blood pressure 68 mm[Hg] Jett Burgos DO Work Phone: [facility] 06-06-2023 15:58-0400 Heart rate 77 /min Jett Burgos DO Work Phone: [facility] 06-06-2023 15:58-0400 SaO2% (BldA) [Mass fraction] 96 % Jett Solomonon DO Work Phone: [facility] 06-06-2023 15:58-0400 Systolic blood pressure 104 mm[Hg] Jett Burgos DO Work Phone: [facility] 01-03-2023 23:04-0500 Diastolic blood pressure 77 mm[Hg] [facility] 01-03-2023 23:04-0500 Heart rate 89 /min [facility] 01-03-2023 23:04-0500 Respiratory rate 15 /min [facility] 01-03-2023 23:04-0500 SaO2% (BldA) [Mass fraction] 97 % [facility] 01-03-2023 23:04-0500 Systolic blood pressure 109 mm[Hg] [facility] 01-03-2023 21:40-0500 Body temperature 100.9 [degF] [facility] 01-03-2023 21:37-0500 Body height 172.72 cm [facility] 01-03-2023 21:37-0500 Body mass index (BMI) [Ratio] 37.8 kg/m2 [facility] 01-03-2023 21:37-0500 Body weight 112.76 kg [facility] 10-03-2022 15:55-0400 Body temperature 97.81 [degF] Milad Montiel MD Work Phone: [facility] 10-03-2022 15:55-0400 Body weight 107.96 kg Milad Montiel MD Work Phone: [facility] 10-03-2022 15:55-0400 Diastolic blood pressure 68 mm[Hg] Milad Montiel MD Work Phone: [facility] 10-03-2022 15:55-0400 Heart rate 80 /min Milad Montiel MD Work Phone: [facility] 10-03-2022 15:55-0400 Respiratory rate 16 /min Milad Montiel MD Work Phone: [facility] 10-03-2022 15:55-0400 SaO2% (BldA) [Mass fraction] 98 % Milad Montiel MD Work Phone: [facility] 10-03-2022 15:55-0400 Systolic blood pressure 110 mm[Hg] Milad Montiel MD Work Phone: [facility] 05-30-2022 12:40-0400 Diastolic blood pressure 71 mm[Hg] [facility] 05-30-2022 12:40-0400 Heart rate 67 /min [facility] 05-30-2022 12:40-0400 Respiratory rate 16 /min [facility] 05-30-2022 12:40-0400 SaO2% (BldA) [Mass fraction] 97 % [facility] 05-30-2022 12:40-0400 Systolic blood pressure 125 mm[Hg] [facility] 05-30-2022 09:57-0400 Body height 172.72 cm [facility] 05-30-2022 09:57-0400 Body mass index (BMI) [Ratio] 34.4 kg/m2 [facility] 05-30-2022 09:57-0400 Body temperature 97.6 [degF] [facility] 05-30-2022 09:57-0400 Body weight 102.96 kg [facility] 04-15-2022 00:03-0500 Body height 172.72 cm [facility] 04-15-2022 00:03-0500 Body mass index (BMI) [Ratio] 33.5 kg/m2 [facility] 04-15-2022 00:03-0500 Body temperature 98 [degF] [facility] 04-15-2022 00:03-0500 Body weight 100.24 kg [facility] 04-15-2022 00:03-0500 Diastolic blood pressure 89 mm[Hg] [facility] 04-15-2022 00:03-0500 Heart rate 72 /min [facility] 04-15-2022 00:03-0500 Respiratory rate 16 /min [facility] 04-15-2022 00:03-0500 SaO2% (BldA) [Mass fraction] 100 % [facility] 04-15-2022 00:03-0500 Systolic blood pressure 141 mm[Hg] [facility] 02-11-2022 13:25-0500 Body temperature 98.1 [degF] Ramya Raghav PHYSICIAN GENERAL PRACTICE.AGRICULTURAL TECHNICIAN Work Phone: [facility] 02-11-2022 13:25-0500 Body weight 103.33 kg Ramya Raghav PHYSICIAN GENERAL PRACTICE.AGRICULTURAL TECHNICIAN Work Phone: [facility] 02-11-2022 13:25-0500 Diastolic blood pressure 84 mm[Hg] Ramya Raghav PHYSICIAN GENERAL PRACTICE.AGRICULTURAL TECHNICIAN Work Phone: [facility] 02-11-2022 13:25-0500 Heart rate 71 /min Ramya Raghav PHYSICIAN GENERAL PRACTICE.AGRICULTURAL TECHNICIAN Work Phone: [facility] 02-11-2022 13:25-0500 Respiratory rate 16 /min Ramya Raghav PHYSICIAN GENERAL PRACTICE.AGRICULTURAL TECHNICIAN Work Phone: [facility] 02-11-2022 13:25-0500 SaO2% (BldA) [Mass fraction] 98 % Ramya Raghav PHYSICIAN GENERAL PRACTICE.AGRICULTURAL TECHNICIAN Work Phone: [facility] 02-11-2022 13:25-0500 Systolic blood pressure 120 mm[Hg] Ramya Raghav PHYSICIAN GENERAL PRACTICE.AGRICULTURAL TECHNICIAN Work Phone: [facility] Encounters Encounter Date Encounter Type Care Provider Facility Start: 07-15-2024 ambulatory BRIAN Rainey lity:[facility] Start: 07-15-2024 End: 07-15-2024 Subsequent hospital visit by physician Xr [facility] Qasim Work Phone: Radiology Comment on above: Injury of right hand , initial encounter [S69.91XA] Start: 07-14-2024 End: 07-14-2024 ambulatory JETT BURGOS Facility:[facility] Start: 07-14-2024 End: 06-08-2025 Office outpatient visit 15 minutes Brian Pride APRN.CNP Work Phone: [facility] Comment on above: Injury of right hand , initial encounter (Primary Dx); Closed nondisplaced fracture of proximal phalanx of right thumb, initial encounter Start: 07-11-2023 Telephone encounter Jett Chiqui Rod kikojosiane DO Work Phone: [facility] Start: 07-10-2023 Refill Jett ang DO Work Phone: [facility] Comment on above: Refill Request (NEW PHARMACY IN [facility] ADDED ON MED LIST) Start: 06-06-2023 End: 06-06-2023 Patient encounter procedure Jett Solomonon DO Work Phone: [facility] Comment on above: Worsening headaches (Primary Dx); Migraine headache; 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 Start: 01-03-2023 End: 01-04-2023 Emergency department patient visit Gareth Apple Facility:[facility] Start: 01-03-2023 End: 01-03-2023 Emergency department patient visit [facility] Work Phone: Start: 10-14-2022 End: 10-14-2022 Patient encounter procedure Gomez Brennan DO Work Phone: [facility] Comment on above: Acute wrist pain, ri ght Start: 10-03-2022 End: 10-03-2022 Subsequent hospital visit by physician Xr [facility] Work Phone: Radiology Comment on above: Acute wrist pain, ri ght [M25.531] Start: 10-03-2022 End: 10-03-2022 Patient encounter procedure Milad Montiel MD Work Phone: [facility] Comment on above: Acute wrist pain, ri ght (Primary Dx) Start: 05-30-2022 End: 05-30-2022 Emergency department patient visit Hunter Campos Facility:[facility] Start: 05-30-2022 End: 05-30-2022 Emergency department patient visit [facility] Start: 05-24-2022 End: 05-24-2022 Subsequent hospital visit by physician Xr [facility] [place] Work Phone: Radiology Comment on above: Acute right ankle pa in [M25.571] Start: 04-15-2022 End: 04-15-2022 Emergency department patient visit Bruce Mercado Facility:[facility] Start: 04-15-2022 End: 04-15-2022 Emergency department patient visit [facility] Start: 02-11-2022 End: 02-11-2022 Patient encounter procedure Ramya Avilez PHYSICIAN GENERAL PRACTICE.AGRICULTURAL TECHNICIAN Work Phone: [facility] Comment on above: Sore throat (Primary Dx); Chronic tonsillar hypertrophy; Acute cough; Sinus pressure; Neck pain; Injury of neck, subsequent encounter Start: 10-22-2020 Telephone encounter Jett farr DO Work Phone: [facility] Comment on above: Appointment Reschedu led Procedures Date Procedure Procedure Detail Performing Clinician Start: 07-15-2024 Radex hand minimum 3 views Brian Pride PHYSICIAN GENERAL PRACTICE.AGRICULTURAL TECHNICIAN Work Phone: Start: 01-03-2023 Plain chest X-ray Start: 01-03-2023 SARS-CoV-2 & FLU Ant igen (Rapid) Start: 10-03-2022 Radex wrist complete minimum 3 views Milad Montiel MD Work Phone: Start: 05-30-2022 Plain chest X-ray Start: 05-24-2022 Radex ankle complete minimum 3 views Janene Kirkpatrick PHYSICIAN GENERAL PRACTICE.AGRICULTURAL TECHNICIAN Work Phone: Start: 04-16-2021 Adult depression screening assessment Jett Burgos DO Work Phone: Plan of Treatment Date Care Activity Detail Author Start: 07-07-2029 Urine microalbumin profile [facility] Start: 10-07-2024 Influenza vaccination Influenz a Vaccine (Season Ended) [facility] Start: 07-23-2024 End: 07-23-2024 Patient encounter procedure 07/23/2024 2:00 PM EDT Office Visit [facility] [address] [place] [address] Gomez Brennan, V, DO [address] [place] [address] Injury of right hand, initial encounter [S69.91XA] [facility] [place] Comment on above: Injury of right hand , initial encounter [S69.91XA] Start: 03-02-2024 Covid-19 Vaccine () Covid-19 Vaccine () [facility] Comment on above: Postponed from 10/07 (Declined at this time) Start: 02-06-2024 Behavioral Health Screening Behavioral Health Screening [facility] Comment on above: Postponed from 02/06 (Declined at this time) Start: 10-08-2023 Covid-19 Vaccine ( season) Covid-19 Vaccine () [facility] Start: 10-08-2023 Covid-19 Vaccine () Covid-19 Vaccine () [facility] Start: 10-08-2023 Influenza vaccination C [facility] Start: 06-06-2023 End: 09-05-2023 25-hydroxyvitamin D3 [Mass/volume] in Serum or Plasma VITAMIN D 25 HYDROXY Lab Routine Migraine headache Expected: 06/06/2023, Expires: 09/05/2023 [facility] Comment on above: Expected: 06/06/2023 , Expires: 09/05/2023 Start: 06-06-2023 End: 09-05-2023 CBC W Auto Differential panel - Blood COMPLETE BLOOD COUNT AND DIFFERENTIAL Lab Routine Migraine headache Expected: 06/06/2023, Expires: 09/05/2023 [facility] Comment on above: Expected: 06/06/2023 , Expires: 09/05/2023 Start: 06-06-2023 End: 09-05-2023 Cobalamin (Vitamin B12) [Mass/volume] in Serum or Plasma VITAMIN B12 Lab Routine Migraine headache Expected: 06/06/2023, Expires: 09/05/2023 [facility] Comment on above: Expected: 06/06/2023 , Expires: 09/05/2023 Start: 06-06-2023 End: 09-05-2023 Comprehensive metabolic 2000 panel - Serum or Plasma COMPREHENSIVE METABOLIC PANEL Lab Routine Migraine headache Expected: 06/06/2023, Expires: 09/05/2023 [facility] Comment on above: Expected: 06/06/2023 , Expires: 09/05/2023 Start: 06-06-2023 End: 09-05-2023 Magnesium [Mass/volume] in Serum or Plasma MAGNESIUM Lab Routine Migraine headache Expected: 06/06/2023, Expires: 09/05/2023 [facility] Work Phone: Comment on above: Expected: 06/06/2023 , Expires: 09/05/2023 Start: 06-06-2023 End: 09-05-2023 Thyrotropin [Units/volume] in Serum or Plasma THYROID STIMULATING HORMONE Lab Routine Migraine headache Expected: 06/06/2023, Expires: 09/05/2023 [facility] Comment on above: Expected: 06/06/2023 , Expires: 09/05/2023 Start: 01-03-2023 [facility] Start: 10-07-2022 Influenza vaccination INFLUENZA (#1) [facility] Start: 05-30-2022 [facility] Start: 04-16-2022 Adult depression screening assessment DEPRESSION SCREENING [facility] Start: 04-16-2022 COVID-19 VACCINE (#1) COVID-19 VACCI NE (#1) [facility] Comment on above: Postponed from 02/18 (Declined at this time) Start: 04-16-2022 COVID-19 VACCINE (1) COVID-19 VACCIN E (1) [facility] Comment on above: Postponed from 08/18 (Declined at this time) Start: 02-06-2022 DEPRESSION ASSESSMENT DEPRESSION ASS ESSMENT [facility] Start: 10-07-2021 Influenza vaccination C [facility] Start: 2014 PAP TESTING PAP TESTING [facility] Start: 2014 Screening for malign ant neoplasm of cervix [facility] Start: 08-19-2011 Anxiety Screening Anxiety Screening [facility] Start: 08-19-2011 Depression Screening Depression Scre ening [facility] Start: 08-19-2011 HEPATITIS C SCREENING HEPATITIS C [facility] Start: 08-19-2011 Hepatitis C screening Hepatitis C [facility] Start: 08-19-2011 HIV SCREENING HIV SCREENING [facility] Start: 08-19-2011 HIV screening HIV Screening [facility] Start: 02-18-1994 COVID-19 VACCINE (#1) COVID-19 VACCI NE (#1) [facility] Influenza virus A an d B RNA and SARS-CoV-2 (COVID-19) N gene panel - Respiratory specimen by COREY with probe detection COVID WITH FLUA+B, ROUTINE Microbiology Routine Sore throat Chronic tonsillar hypertrophy Acute cough Sinus pressure 02/11/2022 1:50 PM EST [facility] Work Phone: Patient Education [facility] Work Phone: Patient referral [facility] Work Phone: RAPID STREP TEST B/O RAPID STREP TEST B/O Lab Routine Sore throat Chronic tonsillar hypertrophy Acute cough Sinus pressure Ordered: 02/11/2022 [facility] Work Phone: Comment on above: Ordered: 02/11/2022 [facility] Immunizations Immunization Date Immunization Notes Care Provider Gt munguia 07-08-2019 tetanus toxoid, redu rosaura diphtheria toxoid, and acellular pertussis vaccine, adsorbed Jett Burgos DO Work Phone: [facility] Work Phone: 12-30-2009 human papilloma viru s vaccine, quadrivalent Jett Burgos DO Work Phone: [facility] Work Phone: 05-21-2009 human papilloma viru s vaccine, quadrivalent Jett Burgos DO Work Phone: [facility] Work Phone: 05-21-2009 tetanus toxoid, redu rosaura diphtheria toxoid, and acellular pertussis vaccine, adsorbed Jett Burgos DO Work Phone: [facility] Work Phone: 12-24-2008 influenza virus vaccine, unspecified formulation Jett Burgos DO Work Phone: [facility] 12-01-2008 human papilloma viru s vaccine, quadrivalent Jett Burgos DO Work Phone: [facility] Work Phone: 09-28-1998 diphtheria, tetanus toxoids and acellular pertussis vaccine Jett Burgos DO Work Phone: [facility] Work Phone: 09-28-1998 measles, mumps and rubella virus vaccine Jett Burgos DO Work Phone: [facility] Work Phone: 09-28-1998 trivalent poliovirus vaccine, live, oral Jett Burgos DO Work Phone: [facility] Work Phone: 05-27-1997 diphtheria, tetanus toxoids and acellular pertussis vaccine Jett Burgos DO Work Phone: [facility] Work Phone: 10-24-1996 diphtheria, tetanus toxoids and acellular pertussis vaccine Jett Burgos DO Work Phone: [facility] Work Phone: 10-24-1996 hepatitis B vaccine, pediatric or pediatric/adolescent dosage Jett Burgos DO Work Phone: [facility] Work Phone: 10-24-1996 trivalent poliovirus vaccine, live, oral Jett Burgos DO Work Phone: [facility] Work Phone: 07-25-1995 haemophilus influenz ae type b vaccine, HbOC conjugate Jett Burgos DO Work Phone: [facility] Work Phone: 07-25-1995 hepatitis B vaccine, pediatric or pediatric/adolescent dosage Jett Burgos DO Work Phone: [facility] Work Phone: 07-25-1995 poliovirus vaccine, inactivated Jett Burgos DO Work Phone: [facility] Work Phone: 07-15-1995 diphtheria, tetanus toxoids and acellular pertussis vaccine Jett Burgos DO Work Phone: [facility] Work Phone: 09-02-1994 diphtheria, tetanus toxoids and acellular pertussis vaccine Jett Burgos DO Work Phone: [facility] Work Phone: 09-02-1994 haemophilus influenz ae type b vaccine, HbOC conjugate Jett Burgos DO Work Phone: [facility] Work Phone: 09-02-1994 hepatitis B vaccine, pediatric or pediatric/adolescent dosage Jett Burgos DO Work Phone: [facility] Work Phone: 09-02-1994 measles, mumps and rubella virus vaccine Jett Burgos DO Work Phone: [facility] Work Phone: 09-02-1994 poliovirus vaccine, inactivated Jett Burgos DO Work Phone: [facility] Work Phone: Payers Date Payer Category Payer Self-pay [id number] 2021 Private Health Insurance [id number] 2021 Unknown [id number] 2020 Unknown [employer] [facility] [id number] 2020-Present [phone] [address] [place] [address] [facility] [id number] Unknown [employer] [id number] Unknown [facility] [id number] Unknown [facility] COMP MANAGEMENT [id number] Unknown [id number] Unknown [id number] Unknown [id number] Social History Date Type Detail Facility Start: 05-24-2022 Tobacco smoking stat us NHIS Never smoked tobacco [facility] Work Phone: Start: 07-08-2019 End: 07-15-2024 Alcohol intake Current non-drinker of alcohol (finding) [facility] Start: 1995 Sex Assigned At Not on file C [facility] Start: 04-06-2021 End: 04-16-2021 Exposure to SARS-CoV-2 (event) Not sure [facility] Work Phone: Start: 04-15-2022 End: 01-03-2023 Tobacco smoking status NHIS Unknown if ever smoked [facility] Start: 1995 Sex Assigned At Female W [facility] Start: 05-24-2022 Tobacco use and exposure User of smokeless tobacco [facility] Start: 10-03-2022 End: 10-14-2022 History of Social function [facility] Start: 10-03-2022 End: 10-14-2022 Tobacco use panel [facility] National Score (1-100), lower number is lower risk 70 [facility] Start: 05-24-2022 Tobacco Comment niyah [facility] Has the [employer], [employer], or [employer] threatened to shut off services in your home in past 12Mo No [facility] Do you feel stress - tense, restless, nervous, or anxious, or unable to sleep at night because your mind is troubled all the time - these days [OSQ] Only a little [facility] NEGATED: Highlighted row [facility] Functional Status Date Assessment Result Facility 03-07-2014 Are you deaf, or do you have serious difficulty hearing No 03/07/2014 11:01 AM Lisa Macario LPN [facility] Work Phone: 03-07-2014 Are you blind, or do you have serious difficulty seeing, even when wearing glasses No 03/07/2014 11:01 AM Lisa Macario LPN No [facility] 03-07-2014 Do you have serious difficulty walking or climbing stairs No 03/07/2014 11:01 AM Lisa Macario LPN No [facility] 03-07-2014 Do you have difficul ty dressing or bathing No 03/07/2014 11:01 AM Lisa Macario LPN [facility] 03-07-2014 Because of a physica l, mental, or emotional condition, do you have difficulty doing errands alone such as visiting a physician's office or shopping No 03/07/2014 11:01 AM Lisa Macario LPN [facility] Mental Status Date Assessment Result Facility 01-03-2023 Cognitive function Level Of Cons ciousness Awake;Alert;Appropriate;Fol lows Commands [facility] Work Phone: 05-30-2022 Cognitive function Level Of Cons ciousness Awake;Alert;Appropriate [facility] Work Phone: 03-07-2014 Because of a physica l, mental, or emotional condition, do you have serious difficulty concentrating, remembering, or making decisions No 03/07/2014 11:01 AM Lisa Macario LPN [facility] Clinical Notes 10-22-2020 to 07-15-2024 Jyoti Avelar Tech - 07/15/2024 8:30 AM MIKAELTPBrian garcia APRN.AGRICULTURAL TECHNICIAN - 07/14/2024 1:01 PM EDTTelephone Encounter - Jett Burgos DO - 07/19/2023 6:57 AM EDTPatient Instructions Note Date & Type Note Facility 07-15-2024 History of Presen t illness Narrative Radiology Service Progress Note PATIENT NAME: Cristina Jean DATE OF SERVICE: July 15, 2024 TIME: 8:59 AM PATIENT IDENTITY VERIFICATION COMPLETED USING TWO (2) IDENTIFIERS: Name and Date of confirmed by patient verbally. FALL SCREENING: Has the patient had 2 falls in the last year or 1 fall with injury or currently using an Ambulatory Assistive Device (Walker, Cane, Wheelchair, Crutches, etc.)? No PATIENT GENDER DATA: Assigned female at . status: : No status: NO. PATIENT RELEVANT IMPLANT DATA REVIEWED: Not Applicable PATIENT PRESENTS WITH AN IMPLANTABLE OR ATTACHED PADDED PRODUCTS FINISHER: No RADIOLOGY DEPARTMENT: General X-ray: Exam(s) Completed: Upper Extremity X-Ray(s): Hand, right PERIPHERAL IV DATA: Not applicable SIGNED BY: Capri Faith July 15, 2024 8:59 AM documented in this encounter [facility] 07-15-2024 Note HNO ID: [id number] Author: JYOTI AVELAR Tech Service: ? Author Type: Technologist Type: Progress Notes Filed: 07/15/2024 09:05 Note Text: Radiology Service Progress Note PATIENT NAME: Cristina Jean DATE OF SERVICE: July 15, 2024 TIME: 8:59 AM PATIENT IDENTITY VERIFICATION COMPLETED USING TWO (2) IDENTIFIERS: Name and Date of confirmed by patient verbally. FALL SCREENING: Has the patient had 2 falls in the last year or 1 fall with injury or currently using an Ambulatory Assistive Device (Walker, Cane, Wheelchair, Crutches, etc.)? No PATIENT GENDER DATA: Assigned female at . status: : No status: NO. PATIENT RELEVANT IMPLANT DATA REVIEWED: Not Applicable PATIENT PRESENTS WITH AN IMPLANTABLE OR ATTACHED PADDED PRODUCTS FINISHER: No RADIOLOGY DEPARTMENT: General X-ray: Exam(s) Completed: Upper Extremity X-Ray(s): Hand, right PERIPHERAL IV DATA: Not applicable SIGNED BY: Capri Faith July 15, 2024 8:59 AM [facility] 07-14-2024 Note HNO ID: [id number] Author: BRIAN PRIDE APRN.AGRICULTURAL TECHNICIAN Service: ? Author Type: Nurse Practitioner Type: Progress Notes Filed: 07/15/2024 09:39 Note Text: Subjective HPI Nontoxic-appearing 28-year-old female presents urgent care chief complaint hand injury. Patient states yesterday she was catching a football and football struck her on her thumb stretching it backwards. Presents today due to swelling and tenderness. No other injuries. No numbness no tingling. No decrease sensation. No surgeries fractures previously past medical history prescription medications allergies reviewed right hand dominant .Patient presents with: Trauma: Right thumb injury x 1 day PAST MEDICAL HISTORY Diagnosis Date Migraine headache PMH - PAST MEDICAL HISTORY OF 11/14/97 normal color vision PAST SURGICAL HISTORY Procedure Laterality Date NONE ALLERGIES Patient has no known allergies. MEDICATIONS propranolol ER (INDERAL LA) 60 mg 24 hr capsule Take 1 capsule by mouth once daily. rizatriptan (MAXALT-SYSTEM ARCHITECT) 10 mg disintegrating tablet Take 1 tablet (10 mg) by mouth as needed for migraine headache (see administration instructions). May repeat dose after 2 hours if needed. Maximum daily dose is 30 mg per day. (Patient not taking: Reported on 07/14/2024) FAMILY HISTORY Problem Relation Age of Onset Diabetes Mother Diabetes Maternal Grandmother Diabetes Maternal Grandfather Coronary Artery Disease Other no 1st degree Colon Cancer Other none None Brother Social History Tobacco Use Smoking status: Never Smokeless tobacco: Current Tobacco comments: vape Substance Use Topics Alcohol use: No Drug use: No BP 126/90 Pulse 75 Temp 36.8 ?C (98.2 ?F) Resp 18 Wt 116.7 kg (257 lb 4.4 oz) LMP (LMP Unknown) SpO2 97% BMI 39.12 kg/m? Review of Systems Constitutional: Negative for chills, fever and malaise/fatigue. Musculoskeletal: Positive for joint pain. Negative for back pain, falls, myalgias and neck pain. Neurological: Negative for dizziness, loss of consciousness, weakness and headaches. Objective Physical Exam Constitutional: General: She is not in acute distress. Appearance: She is not toxic-appearing. HENT: Head: Normocephalic. Nose: Nose normal. Eyes: Pupils: Pupils are equal, round, and reactive to light. Cardiovascular: Rate and Rhythm: Normal rate. Pulmonary: Effort: Pulmonary effort is normal. No respiratory distress. Musculoskeletal: Right wrist: Normal. Hands: Cervical back: Normal range of motion. Comments: Ecchymosis noted. Pain with palpation over MCP joint. Neurovascular intact. No breaks in skin. Skin: General: Skin is warm and dry. Neurological: General: No focal deficit present. Mental Status: She is alert. ASSESSMENT/PLAN: 1. Injury of right hand, initial encounter - ICD9: 959.4, ICD10: S69.91XA (primary diagnosis) - XR HAND GENERAL 3V PA/LAT/OBL RIGHT - CONSULT TO ORTHOPAEDICS 2. Closed nondisplaced fracture of proximal phalanx of right thumb, initial encounter - ICD9: 816.01, ICD10: S62.514A IMPRESSION: Suspected nondisplaced fracture of the base of the first proximal phalanx as described. Correlate with physical examination for point tenderness in this region. Suspected fracture proximal phalanx. Placed in thumb spica splint. Follow-up with orthopedics. Concerned about possible gamekeeper's thumb. Patient was educated on supportive therapies. Patient will follow up with primary care provider as needed. Patient was instructed to immediately proceed to emergency room for any new, worsening, or symptoms lasting longer than anticipated. The patient's clinical presentation is otherwise unremarkable at this time. Based on exam and clinical finding, the patient is stable for discharge. Plan of care was discussed with patient. Patient verbalizes understanding and agrees to plan of care. This note was generated using [employer] software. It may contain errors in wording, punctuation, or spelling. Brian Pride APRN.[facility] 07-14-2024 History of Presen t illness Narrative Images from the original note were not included. Subjective HPI Nontoxic-appearing 28-year-old female presents urgent care chief complaint hand injury. Patient states yesterday she was catching a football and football struck her on her thumb stretching it backwards. Presents today due to swelling and tenderness. No other injuries. No numbness no tingling. No decrease sensation. No surgeries fractures previously past medical history prescription medications allergies reviewed right hand dominant .Patient presents with: Trauma: Right thumb injury x 1 day PAST MEDICAL HISTORY Diagnosis Date Migraine headache PMH - PAST MEDICAL HISTORY OF 11/14/97 normal color vision PAST SURGICAL HISTORY Procedure Laterality Date NONE ALLERGIES Patient has no known allergies. MEDICATIONS propranolol ER (INDERAL LA) 60 mg 24 hr capsule Take 1 capsule by mouth once daily. rizatriptan (MAXALT-SYSTEM ARCHITECT) 10 mg disintegrating tablet Take 1 tablet (10 mg) by mouth as needed for migraine headache (see administration instructions). May repeat dose after 2 hours if needed. Maximum daily dose is 30 mg per day. (Patient not taking: Reported on 07/14/2024) FAMILY HISTORY Problem Relation Age of Onset Diabetes Mother Diabetes Maternal Grandmother Diabetes Maternal Grandfather Coronary Artery Disease Other no 1st degree Colon Cancer Other none None Brother Social History Tobacco Use Smoking status: Never Smokeless tobacco: Current Tobacco comments: vape Substance Use Topics Alcohol use: No Drug use: No BP 126/90 Pulse 75 Temp 36.8 C (98.2 F) Resp 18 Wt 116.7 kg (257 lb 4.4 oz) LMP (LMP Unknown) SpO2 97% BMI 39.12 kg/m Review of Systems Constitutional: Negative for chills, fever and malaise/fatigue. Musculoskeletal: Positive for joint pain. Negative for back pain, falls, myalgias and neck pain. Neurological: Negative for dizziness, loss of consciousness, weakness and headaches. Objective Physical Exam Constitutional: General: She is not in acute distress. Appearance: She is not toxic-appearing. HENT: Head: Normocephalic. Nose: Nose normal. Eyes: Pupils: Pupils are equal, round, and reactive to light. Cardiovascular: Rate and Rhythm: Normal rate. Pulmonary: Effort: Pulmonary effort is normal. No respiratory distress. Musculoskeletal: Right wrist: Normal. Hands: Cervical back: Normal range of motion. Comments: Ecchymosis noted. Pain with palpation over MCP joint. Neurovascular intact. No breaks in skin. Skin: General: Skin is warm and dry. Neurological: General: No focal deficit present. Mental Status: She is alert. ASSESSMENT/PLAN: 1. Injury of right hand, initial encounter - ICD9: 959.4, ICD10: S69.91XA (primary diagnosis) - XR HAND GENERAL 3V PA/LAT/OBL RIGHT - CONSULT TO ORTHOPAEDICS 2. Closed nondisplaced fracture of proximal phalanx of right thumb, initial encounter - ICD9: 816.01, ICD10: S62.514A IMPRESSION: Suspected nondisplaced fracture of the base of the first proximal phalanx as described. Correlate with physical examination for point tenderness in this region. Suspected fracture proximal phalanx. Placed in thumb spica splint. Follow-up with orthopedics. Concerned about possible gamekeeper's thumb. Patient was educated on supportive therapies. Patient will follow up with primary care provider as needed. Patient was instructed to immediately proceed to emergency room for any new, worsening, or symptoms lasting longer than anticipated. The patient's clinical presentation is otherwise unremarkable at this time. Based on exam and clinical finding, the patient is stable for discharge. Plan of care was discussed with patient. Patient verbalizes understanding and agrees to plan of care. This note was generated using [employer] software. It may contain errors in wording, punctuation, or spelling. Brian Pride APRN.RAY documented in this encounter [facility] 07-19-2023 Telephone encounter Note Noted She doesn't use rizatriptan regularly Jett Burgos DO [facility] 07-19-2023 Miscellaneous Notes Noted She doesn't use rizatriptan regularly Jett Burgos DO [facility] called with a warning of a drug interaction with propranolol and rizatriptan. It was noted that propranolol may increase the effects of rizatriptan. Wanted to be sure patient had been on this before as this is the first time filling medications for patient at this pharmacy. documented in this encounter [facility] 07-11-2023 Telephone encounter Note [facility] called with a warning of a drug interaction with propranolol and rizatriptan. It was noted that propranolol may increase the effects of rizatriptan. Wanted to be sure patient had been on this before as this is the first time filling medications for patient at this pharmacy. [facility] 07-10-2023 Telephone encounter Note Patient has been identified by name and date of : Yes, Provider Jett Burgos DO Date 07/10/2023 Time 3:11 pm Patient phones for refill(s): Requested Prescriptions Pending Prescriptions Disp Refills propranolol ER (INDERAL LA) 60 mg 24 hr capsule 90 capsule 1 Sig: Take 1 capsule by mouth once daily. rizatriptan (MAXALT-SYSTEM ARCHITECT) 10 mg disintegrating tablet 12 tablet 3 Sig: Take 1 tablet (10 mg) by mouth as needed for migraine headache (see administration instructions). May repeat dose after 2 hours if needed. Maximum daily dose is 30 mg per day. Date of last office visit in primary care: 05/2023 Date of next office visit in primary care: Visit date not found Please cancel the RX's at [facility] send to [facility] Please advise. Thank you. Nannette Meyers. [facility] 07-10-2023 Miscellaneous Notes Patient has been identified by name and date of : Yes, Provider Jett Burgos DO Date 07/10/2023 Time 3:11 pm Patient phones for refill(s): Requested Prescriptions Pending Prescriptions Disp Refills propranolol ER (INDERAL LA) 60 mg 24 hr capsule 90 capsule 1 Sig: Take 1 capsule by mouth once daily. rizatriptan (MAXALT-SYSTEM ARCHITECT) 10 mg disintegrating tablet 12 tablet 3 Sig: Take 1 tablet (10 mg) by mouth as needed for migraine headache (see administration instructions). May repeat dose after 2 hours if needed. Maximum daily dose is 30 mg per day. Date of last office visit in primary care: 05/2023 Date of next office visit in primary care: Visit date not found Please cancel the RX's at [facility] send to [facility] Please advise. Thank you. Nannette Shafer [facility] documented in this encounter [facility] 06-06-2023 Instructions Jett Burgos DO - 06/06/2023 4:15 PM EDT Supplements to help prevent migraines/headaches- take in the evening with supper together Magnesium 400-500 mg once a day Vitamin D3 2,000 international unit(s) a day Riboflavin 400 mg once a day documented in this encounter [facility] 06-06-2023 History of Presen t illness Narrative CC: Cristina Jean is a 27 year old female who presents to the office for headache follow up HPI: Seen in Feb by Genesis Fisher AGRICULTURAL TECHNICIAN as below Headaches -- Current migraine started yesterday evening. Went to bed at 7pm and woke up today with it worse. Whole head throbbing, mostly top of head. Extreme photosensitivity and n/v with this episode. Reports this migraine similar to others but one of the worst she has had. Does report associated congestion and sinus pressure x 2-4 days prior to headache starting. Pt reports hx of migraines. Reports migraine about every other week lasting anywhere from 1-4 days. Sometimes will get relief with OTC NSAID and excedrin. Has tried imitrex prn but forgets if this regimen works well or not, has not had this medication in months. Has been prescribed topamax 25 mg daily at bedtime for headaches in 2021 -- took x 6 months and since she noticed a slight improvement in frequency of headaches but still was getting them pretty routine. Per medication list, Amitriptyline 10 mg daily was also tried but patient forgets if this worked at all or not. Does feel like migraines are stress induced. Denies any muscle tension muscle spasms. 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 Had to call off today due to these symptoms. No other concerns or complaints. She was started on propranolol as well as prn oral imitrex Currently Migraine headaches, intermittent, occurring about 1 time a week but lasting up to 2-3 days during each occurrence. No head injuries. Does have light and noise sensitivity. Has been taking the propranolol medication as prescribed above without obvious improvement in symptoms. Also doesn't feel that the oral imitrex is effective for her symptoms either. No valsalva, intercourse or bowel movement induced headache. No fevers or chills. Is going to be quitting her job in the next 3-4 weeks and moving to [place] to live with her boyfriend so is going to be establishing care with physician there PAST MEDICAL HISTORY Diagnosis Date Migraine headache PMH - PAST MEDICAL HISTORY OF 11/14/97 normal color vision PAST SURGICAL HISTORY Procedure Laterality Date NONE Current Outpatient Medications Medication Sig rizatriptan (MAXALT-SYSTEM ARCHITECT) 10 mg disintegrating tablet Take 1 tablet (10 mg) by mouth as needed for migraine headache (see administration instructions). May repeat dose after 2 hours if needed. Maximum daily dose is 30 mg per day. propranolol ER (INDERAL LA) 60 mg 24 hr capsule Take 1 capsule by mouth once daily. No current facility-administered medications for this visit. ALLERGIES No Known Allergies Social History Tobacco Use Smoking status: Never Smokeless tobacco: Current Tobacco comments: vape Substance Use Topics Alcohol use: No Drug use: No ROS: See HPI PE: BP 104/68 Pulse 77 Ht 5' 8 (1.73m) Wt 247 lb (112.0kg) SpO2 96% BMI 37.56 kg/(m^2). Gen: A&OX3, NAD, non-toxic appearing HEENT: PERRLA, EOMs intact b/l, nares without drainage, pharynx without erythema, exudate, lesions, or drainage. Uvula midline. Neck: No LAD, no thyromegaly, no meningismus. CV: RRR, no murmur Lungs: CTA b/l, no wheezing Skin: No rashes, lesions, or wounds on exposed skin. CN II-XII grossly intact, non focal neurologic exam, normal gait ASSESSMENT/PLAN: 1. Worsening headaches - ICD9: 784.0, ICD10: R51.9 (primary diagnosis) D/w her today to check labs as ordered Start on routine of supplements with magnesium, riboflavin and vitamin D D/c Imitrex, trial of maxalt prn, continue propranolol. If headaches continue to worsen, then need for CT brain as d/w her today 2. Migraine headache - ICD9: 346.90, ICD10: G43.909 See above - MAGNESIUM - COMPREHENSIVE METABOLIC PANEL - COMPLETE BLOOD COUNT AND DIFFERENTIAL - THYROID STIMULATING HORMONE - VITAMIN D 25 HYDROXY - VITAMIN B12 - RIZATRIPTAN 10 MG DISINTEGRATING TABLET - PROPRANOLOL ER 60 MG CAPSULE,24 HR,EXTENDED RELEASE Jett Burgos DO I spent 37 minutes in the visit, with more than 50% of the total [id number] time of the visit in counseling / coordination of care. Return if no improvement. Follow up with Jett Burgos DO. To ER if develops chest pain, shortness of breath. Discussed risks, benefits, alternatives, and potential side effects of medications. Patient/Guardian expressed understanding and agreed with the plan. See patient instructions. Jett Burgos DO [address] [place] [address] documented in this encounter [facility] 01-03-2023 Discharge summary Note Date/Time January 03, 2023 10:02pm [facility] Medical Records Department [address] [place] [address] Emergency Department Summary 01/03/23 MR#: [id number] Acct: [id number] Name: CRISTINA JEAN Rep #:[id number] : 1995 27 From: Gareth Apple MD PCP: Dr. Jett Burgos DO Status:RE G ER Location: ED HPI History of Present Illness Chief Complaint: Cold Sx Informant: patient Narrative Narrative: Patient presents with flulike symptoms. Patient states that about 2 or 3 days ago she started with sneezing. She had a slight sore throat that is better. She has had a slight cough but never been productive. Today she started with significant myalgias and this is what reallyprompted her to come in. She states she aches all over. Her appetite is down but she is not having nausea and is able to eat and drink. No diarrhea. Although she has history of chronic headaches she is not having much of a headache now. She was exposed to her boyfriend who has had some viral type symptoms and a sinus infection. Patient is on no medications, no allergies, no surgeries. [facility] Medical History Hx of migraines Home Medications NK 01/03/23 [History Last Taken Unknown] Allergy/AdvReac Type Severity Reaction Status Date / Time No Known Allergies Allergy Verified 01/03/23 21:37 Social History Smoking Status: Never smoker ROS ROS ED Constitutional Constitutional ED: Reports chills, fever(s), subjective and other Details: Highest temperature at home was 100.2. We have a 100.9 here. Eyes Eyes: Denies blurry vision ENT ENT ED: Reports rhinorrhea and sore throat; Denies ear pain Cardiovascular Cardiovascular: Denies chest pain Respiratory/Chest Respiratory/Chest: Reports cough; Denies dyspnea or sputum Gastrointestinal Gastrointestinal: Denies diarrhea or vomiting Musculoskeletal Musculoskeletal: Reports myalgias Integumentary Denies rash Neurologic Neurologic: Denies paresthesias or weakness Endocrine Endocrinology: Reports polydipsia; Denies polyuria Hematologic/Lymphatic Hematologic/Lymphatic: Denies lymphadenopathy Allergic/Immunologic Allergic/Immunologic ED: Denies urticaria EXAM Physical Exam Narrative Exam Narrative: CONSTITUTIONAL: Patient is nontoxic in appearance. The patient looks comfortable. Work of breathing looks normal. She is wrapped up in multiple blankets as she feels chilled. HEENT: No notable trauma. Mucous membranes do look a bit dry.. No sinus tenderness. No indication of pain with swallowing. No exudate or erythema. EYES: No conjunctival injection. No icterus. NECK:No JVD. No stridor. CARDIOVASCULAR: Regular rate. Regular rhythm. No notable murmur. No JVD. RESPIRATORY: No respiratory distress. Breathing is unlabored. No wheezes. No rhonchi. No rales. No pain with a deep breath. No chest wall tenderness. Saturations are normal at 100% on room air showing no hypoxia. GASTROINTESTINAL: Not distended. Bowel sounds are normal. No tenderness. No guarding. No rebound. GENITOURINARY: No tenderness over the bladder. MUSCULOSKELETAL: Atraumatic. No peripheral edema. NEUROLOGICAL: Patient is alert and appropriate. No focal deficit noted. SKIN: No noted rashes. No diaphoresis. PSYCHIATRIC: Patient is calm. Mood is appropriate. Const Vital Signs: 01/03/23 21:37 01/03/23 21:40 01/03/23 21:43 Temperature 100.6 F H 100.9 F H Temperature Source Temporal Temporal Pulse Rate 90 90 Respiratory Rate 24 H 24 H Respiratory Effort Normal Non-Labored Respiratory Pattern Normal Blood Pressure 148/83 H 148/83 H Blood Pressure Mean 104 104 Pulse Ox 100 100 MDM MDM MDM Narrative Medical decision making narrative: With the patient's cough and fever we will do chest x-ray. I will send off viral studies. We will give her some fluids as she is drinking less and does appear dry. We will give her some Toradol for fevers and myalgias. She intermittently says she was nauseated I will give her some Zofran just to see ifthis helps her symptoms a bit. My independent interpretation of the patient's PA and lateral chest x-ray shows no acute process and final reading is similar. Patient's COVID is positive. Patient's influenza is negative. Patient CBC is normal. Patient's metabolic panel shows no marked abnormalities. Final reading of the patient's chest x-ray shows no acute process. Patient feels bit better with some Toradol and fluids. I explained that she does have COVID. I do not think she requires Paxlovid. I think time rest meds for fever are appropriate. She should continue to make sure she eats and drinksfluids. I will write for some Zofran to see if we can help if she develops morenausea. We discussed reasons to return. Lab Data Attestation: I reviewed the patient's lab results. Labs: Laboratory Results - last 24 hr 01/03/23 22:10 WBC 7.3 RBC 4.59 Hgb 12.8 Hct 38.8 MCV 84.5 MCH 27.9 MCHC 33.0 RDW Std Deviation 38.5 RDW Coeff of Mario 12.5 Plt Count 262 MPV 10.1 Immature Gran % (Auto) 0.300 Neut % (Auto) 74.0 H Lymph % (Auto) 14.3 L [place] % (Auto) 10.6 H Eos % (Auto) 0.4 Baso % (Auto) 0.4 Absolute Neuts (auto) 5.4 Absolute Lymphs (auto) 1.04 Nucleated RBC % 0 Sodium 138 Potassium 3.6 Chloride 107 Carbon Dioxide 26.0 Anion Gap 5 BUN 11 Creatinine 0.86 Estim Creat Clear Calc 97.37 Est GFR (MDRD) Af Amer 100 Est GFR (MDRD) Non-Af 83 BUN/Creatinine Ratio 12.8 Glucose 105 Calcium 8.9 Radiography Diagnostic Testing: Clinical Impression(s) from Imaging Studies Chest X-Ray 01/03/23 22:19 IMPRESSION: No significant interval change. No radiographic evidence of acute cardiopulmonary disease. Electronically Signed: Yang Valencia MD at 22:44 EST , Discharge Plan Triage Chief Complaint: Cold Sx ED Provider: Gareth Apple Dx/Rx/DC Orders Clinical Impression: COVID-19, Fever Instructions: Coronavirus Disease 2019 (COVID-19): Caring for Yourself or Others Prescriptions: No Action NK Primary Care Provider: Jett Burgos Referrals: Jett Burgos DO [Primary Care Provider] - 3-5 Days if not improving Disposition Disposition: Home, Self Care What to do if you have Problems For any increased pain, shortness of breath, bleeding, nausea or vomiting, chestpain, or any unexpected problems, contact your Primary Care Provider. Call [facility] ([phone]) or report to the closest Emergency Room. Call 911 if necessary. 01/03/232258 <Electronically signed by Gareth Apple MD> Cosigner Signature (if applicable): CC: Dr. Jett Burgos DO ~ Signed [facility] Work Phone: 1(176) 936-124109-08-2023 History of Present illness Narrative* Gomez Brennan V, DO - 10/14/2022 2:35 PM EDT SUBJECTIVE: Cristina Jean is a 27 year old female who is here for a right wrist injury. It occurred 2 weeks ago when golfing, hit the ground with club, jamming wrist. Symptoms include pain over the ulnar side of the wrist extending into the fourth and fifth fingers and up the forearm. Was seen in [facility], x-rays were negative for fracture has tried wrist splint. PAST MEDICAL HISTORY Diagnosis Date Migraine headache PMH - PAST MEDICAL HISTORY OF 11/14/97 normal color vision PAST SURGICAL HISTORY Procedure Laterality Date NONE No current outpatient medications on file prior to visit. No current facility-administered medications on file prior to visit. EXAM: General: cooperative and NAD Location: Right wrist and hand: Tender to palpation over the ulnar styloid and TFCC region of the wrist as well as along the ulnar aspect of the forearm. Negative for: Ecchymosis or edema Neurovascular: intact X-ray: No acute fracture or abnormality noted IMPRESSION: Right wrist and forearm sprain PLAN: Continuing wrist splint during regular activity, but remove splint to do exercises-handout given Requested Prescriptions Signed Prescriptions Disp Refills meloxicam (MOBIC) 15 mg tablet 30 tablet 0 Sig: Take 1 tablet by mouth once daily. Recheck in 2 weeks Gomez Brennan DO * Yamilet Palencia Ma - 10/14/2022 2:19 PM EDT AMB ROOMING INTAKE FLOWSHEET DATA Pain Pain Level: 6 Pain Location: Wrist-Right Description: Throbbing Duration Amount of Time: 3 Duration Units: Weeks Frequency: Continuous Intervention/Comfort measure: Splinting [facility] History of Present illness Narrative* Gloria Nuñez, RT(R) - 10/03/2022 4:10 PM EDT Radiology Service Progress Note PATIENT NAME: Cristina Jean DATE OF SERVICE: October 03, 2022 TIME: 4:05 PM PATIENT IDENTITY VERIFICATION COMPLETED USING TWO (2) IDENTIFIERS: Name and Date of confirmedby patient verbally. FALL SCREENING: Has the patient had 2 falls in the last year or 1 fall with injury or currently using an Ambulatory Assistive Device (Walker, Cane, Wheelchair, Crutches, etc.)? No PATIENT GENDER DATA: Female. status: : No status: NO. PATIENT RELEVANT IMPLANT DATA REVIEWED: Yes RADIOLOGY DEPARTMENT: General X-ray: Exam(s) Completed: Upper Extremity X- Ray(s): Wrist, right PERIPHERAL IV DATA: Not applicable SIGNED BY: RT Yulissa(R) October 03, 2022 4:05 PM documented in this encounter[facility] History of Present illness Narrative* Milad Montiel MD - 10/03/2022 3:56 PM EDT Patient presents with: Wrist Pain: right x 09/24-while golfing HPI: Wrist pain: Duration: 1 1/2 weeks, started while golfing Location: right ulnar wrist Character: sharp and sometimes numb Radiation: into the 5th and 4th fingers Aggravating: bending wrist and lifting Relieving: ice Pain relievers: Tylenol Associated: sometimes numbness Pertinent negatives: MEDICATIONS: No prescriptions on file. ALLERGIES: ALLERGIES No Known Allergies VITALS: BP 110/68 Pulse 80 Temp 36.6 C (97.8 F) Resp 16 Wt 108 kg (238 lb) LMP (LMP Unknown) SpO2 98% BMI 36.19 kg/m PE: Pleasant, in no acute distress. ELBOW: right. No pain with palpation of the epicondyles or olecranon. Normal ROM. WRIST: right. Full range of motion. Discomfort with ulnar deviation and flexion. Tender ulnar and dorsal wrist. No snuff box tenderness. Tender 5th finger and medial hand. ASSESSMENT/PLAN: 1. Acute wrist pain, right - ICD9: 719.43, ICD10: M25.531 - XR WRIST GENERAL 3V PA/LAT/OBL RIGHT - negative Wrist sprain/strain with intermittent ulnar nerve distribution numbness. Treat with rest and analgesia. Placed in cockup splint from [facility]. - CONSULT TO ORTHOPAEDICS Milad Montiel MD documented in this encounterOhio[facility] Andres Tripp [facility] May 30, 2022 12:17pm Note Date/Time May 30, 2022 10: 09am [facility] Medical Records Department [address] [place] [address] Emergency Department Summary 05/30/22 MR#: [id number] Acct: [id number] Name: CRISTINA JEAN Rep #:[id number] : 1995 26 From: Hunter Ying PCP: Dr. Jett Burgos, Status:RE G ER Location: ED HPI History of Present Illness Chief Complaint: Dizziness Narrative Narrative: 26-year-old female here for dizziness, nausea, shortness of breath. The patientstates symptoms started feeling this way this morning. 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 She notes she ate pretzels, vitaminwater and started feeling better. She states she did not eat breakfast this morning. She does note she feels short of breath now. The patient states this occurred just prior to arrival. The dizziness and nausea have improved. Statesdizziness is worse upon standing. Denies any visual changes, gait abnormality or ataxia. Denies any headache or recent head trauma. Denies any recent bleeding diathesis. Denies any chest pain or palpitations. Denies any recent drug use. The patient denies recent surgery in the last 4 weeks or immobilization in the last 3 days, denies previous diagnosis of DVT or PE, hemoptysis, unilateral leg swelling or malignancy with treatment the last 6 months. No estrogen use noted. PFSH PFS Medical History Hx of migraines Home Medications topiramate 25 mg tablet 25 mg PO DAILY 05/30/22 [History Last Taken Unknown] Allergy/AdvReac Type Severity Reaction Status Date / Time No Known Allergies Allergy Verified 05/30/22 10:00 Social History Smoking Status: Never smoker ROS ROS ED ROS Narrative Denies Constitutional: Denies fever HEENT: Denies sore throat Neck: Denies neck pain Cardiovascular: Denies chest pain, syncope Respiratory: Endorses shortness of breath GI: Denies vomiting or abdominal pain, endorses nausea : Denies changes in urinary habits Musculoskeletal: Denies muscle or joint pain Neurologic: Denies numbness weakness or loss of sensation, endorses dizziness initially that is since resolved, endorses upon standing. Denies dizziness at rest on my assessment Skin denies rash EXAM Physical Exam Narrative Exam Narrative: Nursing triage notes reviewed, Vital signs reviewed Constitutional: please see [facility] HENT: MMM Eyes: Pupils equal round and reactive to light, Extraocular muscles intact Neck: No stridor, no JVD, full neck ROM Lungs: Clear to auscultation, No wheezing or rales. No increased work of breathing, no conversational dyspnea, no accessory muscle use, no nasal flaring. No respiratory distress noted Heart: Regular rate and rhythm, No murmurs, No rubs and No gallops, 2+ distal pulses (radial, femoral, posterior tibial) in all extremities Abdomen: Soft, there is no tenderness, rigidity, rebound or guarding, no obviousperitoneal signs, no palpable pulsatile abdominal masses, no auscultated abdominal bruit : No CVAT Extremities: No edema Neuro: Alert and oriented x3, neuro exam at baseline, cranial nerves II through XII are intact. No pain with extraocular muscle movement. There is negative test of skew. Normal speech. 5 of 5 strength in upper and lower extremities inflexion extension. Intact sensation to light touch in upper and lower extremitydermatomes. No truncal or extremity ataxia (intact coordination with finger-nose, heel-liao). No dysdiadochokinesia. Normal gait. 2+ reflexes. No meningeal signs. Negative Babinski. NIH of 0. No nystagmus (vertical horizontal or otherwise) Skin: No rash or lesions noted Const Vital Signs: 05/30/22 09:57 05/30/22 10:32 Temperature 97.6 F L Temperature Source Temporal Pulse Rate 68 Respiratory Rate 16 Respiratory Effort Normal Respiratory Pattern Normal Blood Pressure 126/82 H Blood Pressure Mean 96 Pulse Ox 98 Oxygen Delivery Method Room Air [facility] MDM Narrative Medical decision making narrative: Chief Complaint: Shortness of breath, nausea, dizziness External records reviewed: No recent cardiac catheterization, stress test or echocardiogram noted in the chart MDM: Patient was hemodynamically stable, afebrile, nontoxic-appearing. Patient no focal neurologic deficits to suggest posterior circulation CVA. Lungs were clear no focal cardiopulmonary abnormalities. I considered the following differential diagnosis: Viral illness, migraine headache, posterior circulation CVA, dehydration, pneumonia, PE, ACS, arrhythmia I considered obtaining advanced imaging of the brain however patient no focal deficits, no dizziness at rest, NIH of 0 low suspicion for posterior circulationCVA causing dizziness. I also considered pulmonary embolism as potential cause of patient's shortness of breath however she had a low risk Wells score, PERC negative which makes pulmonary embolism exceedingly low. I would low special for pulmonary embolism and as such did not obtain a CTA of the chest or D-dimer for further restratification. I obtained a broad lab and imaging work-up to further elucidate the etiology patient complaints. I treat the patient medically with Zofran and 1 L normal saline. The patient's labs and images were remarkable for no evidence of severesystemic inflammation, severe anemia, electrolyte abnormalities, dehydration, myocardial ischemia, . Chest x-ray without evidence of pneumonia, cardiomegaly, heart failure, pneumothorax. No clear life limiting etiology could be ascertained in emergency department. Patient is appropriate for outpatient evaluation and treatment given her young age, stable vital signs, lack of medical comorbidities, unremarkable exam, unremarkable lab and imaging work-up. Factors affecting care: History of syncope Social determinants of health: Never smoker, poor health literacy History obtained from others: None Shared decision making: I will have a discussion with the patient and or visitors regarding risk/benefits of further testing or admission. They will be made aware of of the risk/benefits inherent in this decision they will be given the opportunity to voice understanding. Consults: None Lab Data Attestation: I reviewed the patient's lab results. Lab results narrative: EKG with normal sinus rhythm, normal axis, normal intervals, no STEMI, no ARVD, no WPW, no Brugada syndrome CBC without leukocytosis, severe anemia, no thrombocytopenia. Urine negative BMP without evidence of significant electrolyte abnormalities, no anion gap, no acute kidney injury. Troponin is negative, no evidence of myocardial ischemia Labs: Laboratory Results - last 24 hr 05/30/22 05/30/22 05/30/22 10:05 10:45 10:45 WBC 7.1 RBC 4.85 Hgb 13.8 Hct 42.4 MCV 87.4 MCH 28.5 MCHC 32.5 RDW Std Deviation 40.7 RDW Coeff of Mario 12.7 Plt Count 362 MPV 9.8 Immature Gran % (Auto) 0.100 Neut % (Auto) 57.0 Lymph % (Auto) 33.9 Oceana % (Auto) 6.9 Eos % (Auto) 1.5 Baso % (Auto) 0.6 Absolute Neuts (auto) 4.1 Absolute Lymphs (auto) 2.42 Nucleated RBC % 0 Sodium 137 Potassium 3.6 Chloride 108 H Carbon Dioxide 24.0 Anion Gap 5 BUN 19 H Creatinine 0.80 Estim Creat Clear Calc 105.61 Est GFR (MDRD) Af Amer 109 Est GFR (MDRD) Non-Af 90 BUN/Creatinine Ratio 23.7 H Glucose 93 Calcium 9.0 Troponin I High Sens < 3 L Urine Test Negative Radiography Chest X-Ray - ED: Read by ED Physician Diagnostic Testing: Clinical Impression(s) from Imaging Studies Chest X-Ray 05/30/22 10:45 IMPRESSION: Normal x-ray examination of the chest. Electronically Signed: Barrera Monge MD at 11:02 EDT , I have personally reviewed the patient's chest x-ray. Chest x-ray is unremarkable for pulmonary edema, pneumothorax, pneumonia or focal cardiopulmonary abnormality. Discharge Plan Triage Chief Complaint: Dizziness ED Provider: Hunter Campos Dx/Rx/DC Orders Clinical Impression: Light-headedness, Acute dehydration, Acute dyspnea Instructions: ED Near-Fainting, Uncertain Cause Prescriptions: No Action topiramate 25 mg tablet 25 mg PO DAILY Label Comments: TAKE 1 TABLET BY MOUTH ONCE DAILY AT BEDTIME FOR HEADACHE Primary Care Provider: Jett Burgos Referrals: Jett Burgos, [Primary Care Provider] - Activity Restrictions/Additional Instructions: Thank you for trusting us with your care today! Please take Tylenol (2 pills, 650 mg), ibuprofen (2 pills, 400 mg) every 6 hoursas needed for pain and fever control. Please return to the emergency department if your symptoms change or worsen. Specifically return if develop chest pain, palpitations, worsening shortness of breath, swelling in your legs, if you lose consciousness. Please follow with your primary care physician for further outpatient evaluationand management. Disposition Disposition: Home, Self Care What to do if you have Problems For any increased pain, shortness of breath, bleeding, nausea or vomiting, chestpain, or any unexpected problems, contact your Primary Care Provider. Call [facility] ([phone]) or report to the closest Emergency Room. Call 911 if necessary. 05/30/22 1217 <Electronically signed by Hunter Campos DO> Cosigner Signature (if applicable): CC: Dr. Jett Burgos DO ~ Signed [facility] Work Phone: [phone] 811-507304-18-2023 History of Present illness Narrative* Gloria Nuñez RT(R) - 05/24/2022 4:30 PM EDT Radiology Service Progress Note PATIENT NAME: Cristina Jean DATE OF SERVICE: May 24, 2022 TIME: 4:39 PM PATIENT IDENTITY VERIFICATION COMPLETED USING TWO (2) IDENTIFIERS: Name and Date of confirmedby patient verbally. FALL SCREENING: Has the patient had 2 falls in the last year or 1 fall with injury or currently using an Ambulatory Assistive Device (Walker, Cane, Wheelchair, Crutches, etc.)? No PATIENT GENDER DATA: Female. status: : No status: NO. PATIENT RELEVANT IMPLANT DATA REVIEWED: Yes RADIOLOGY DEPARTMENT: General X-ray: Exam(s) Completed: Lower Extremity X- Ray(s): Ankle, Right and Wt. Bearing PERIPHERAL IV DATA: Not applicable SIGNED BY: RT Yulissa(R) May 24, 2022 4:39 PM documented [facility] History of Present illness Narrative* Ramya Avilez APRN.AGRICULTURAL TECHNICIAN - 02/11/2022 1:32 PM EST Chief Complaint Patient presents with: Cough: Headache, sore throat, congestion x 3 days, no fever HPI Cristina Jean is a 26 year old female who presents here today for Above Complaints.. Today: Woke up on 02/06 with sore throat and cough. 2 days later had a bad migraine-gets headaches regularly-but this was worse. Hoarse voice. Throat is still sore. Drinking a lot of water but doesn't help. Nonproductive cough-worst in the mornings and if laying down as well as at bedtime. No fevers. Hearing has felt faint in the left ear but feels better now. Has not checked for COVID. No known ill contacts. 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 Past medical history, appointments, medications, allergies reviewed. Previous Medical History PAST MEDICAL HISTORY Diagnosis Date Migraine headache PMH - PAST MEDICAL HISTORY OF 11/14/97 normal color vision Previous Surgical History PAST SURGICAL HISTORY Procedure Laterality Date NONE Family History FAMILY HISTORY Problem Relation Age of Onset Diabetes Mother Diabetes Maternal Grandmother Diabetes Maternal Grandfather Coronary Artery Disease Other no 1st degree Colon Cancer Other none None Brother Patient Allergies ALLERGIES No Known Allergies Current Medications Current Outpatient Medications on File Prior to Visit Medication Sig topiramate (TOPAMAX) 25 mg tablet Take 1 tablet by mouth daily at bedtime. For headaches. ibuprofen (MOTRIN) 600 mg tablet Take 1 tablet by mouth every 6 hours as needed for Pain. cyclobenzaprine (FLEXERIL) 5 mg tablet Take 1-2 tablets by mouth at bedtime as needed for muscle spasm. No current facility-administered medications on file prior to visit. Social History Social History Tobacco Use Smoking status: Never Smokeless tobacco: Never Substance Use Topics Alcohol use: No Drug use: No Review of Symptoms REVIEW OF SYSTEMS See HPI, otherwise negative EXAM: BP 120/84 (BP Site: Left Arm, BP Position: Sitting, BP Cuff Size: Regular Adult) Pulse 71 Temp 36.7 C (98.1 F) Resp 16 Wt 103.3 kg (227 lb 12.8 oz) LMP 03/29/2021 (Approximate) SpO2 98% BMI 34.64 kg/m General Appearance: Well appearing, alert, in no acute distress, well-hydrated, well nourished.. Head: Normocephalic, no masses, lesions, tenderness or abnormalities. Eyes: Anicteric sclera. Pupils are equally round and reactive to light. Extraocular movements are intact. Ears: External ears normal, canals clear. Nose/Sinuses: Nares normal, septum midline, mucosa normal, no drainage or sinus tenderness. Oropharynx: Lips, mucosa, and tongue normal, teeth and gums normal, oropharynx normal. 3+ chronic tonsillar hypertrophy. Neck: Supple, no adenopathy; thyroid symmetric, normal size, no bruits. Lungs: Lungs clear to auscultation. No wheezing, rhonchi, rales.. Heart: RRR without murmur, gallop, or rubs. No ectopy. Health Maintenance List HEPATITIS C SCREENING Never done HIV SCREENING Never done PAP TESTING Never done INFLUENZA(1) due on 10/07/2021 DEPRESSION ASSESSMENT Never done COVID-19 VACCINE(1) due on 04/16/2022 DTAP,TDAP,TD(8 - Td or Tdap) due on 07/07/2029 HEPATITIS B Completed Data reviewed Previous records, office notes ASSESSMENT/PLAN: 1. Sore throat - ICD9: 462, ICD10: J02.9 (primary diagnosis) Suspect viral etiology. R/o strep as well as COVID and influenza A/B Continue with supportive care - COVID WITH FLUA+B, ROUTINE - RAPID STREP TEST B/O 2. Chronic tonsillar hypertrophy - ICD9: 474.11, ICD10: J35.1 Suspect viral etiology. R/o strep as well as COVID and influenza A/B Continue with supportive care - COVID WITH FLUA+B, ROUTINE - RAPID STREP TEST B/O 3. Acute cough - ICD9: 786.2, ICD10: R05.1 Suspect viral etiology. R/o strep as well as COVID and influenza A/B Continue with supportive care - COVID WITH FLUA+B, ROUTINE - RAPID STREP TEST B/O 4. Sinus pressure - ICD9: 478.19, ICD10: J34.89 Suspect viral etiology. R/o strep as well as COVID and influenza A/B Continue with supportive care - COVID WITH FLUA+B, ROUTINE - RAPID STREP TEST B/O 5. Neck pain - ICD9: 723.1, ICD10: M54.2 Refill given - TOPIRAMATE 25 MG TABLET 6. Injury of neck, subsequent encounter - ICD9: V58.89, 959.09, ICD10: S19.9XXD Refill given - TOPIRAMATE 25 MG TABLET Ramya Avilez APRN.AGRICULTURAL TECHNICIAN documented in this encounterC[place] [id number] Miscellaneous Notes* Telephone Encounter - Paulina Vern Landis Pss - 10/22/2020 9:24 AM EDT Patient's 10/23 appointment with Ramya Avilez for an ER f/u had to be rescheduled due to her being out of the office. Next available was 10/30 with Shante Podlogmayra. Please advise if this needs movedto an earlier spot. Thank you Paulina Landis Pss documented in this encounterOhiohealth [facility] HospitalDischarge summary Author Dr. Mercado [facility] April 15, 2022 1:32am Note Date/Time April 15, 2022 1:3 2am [facility] Medical Records Department [address] [place] [address] Emergency Department Summary 04/15/22 MR#: [id number] Acct: [id number] Name: CRISTINA JEAN Rep #:[id number] 07 : 1995 26 From: Bruce Mercado DO PCP: Dr. Jett Burgos DO Status:RE G ER Location: ED HPI History of Present Illness Chief Complaint: Dental Narrative Narrative: 26-year-old female presenting with right-sided maxillary dental pain and right- sided facial swelling. She notes that she has a cracked tooth in this region. She has a dental follow-up next Monday. She states the pain is increasing. [place] has facial swelling. She has tried Tylenol and ibuprofen without relief. She has now developed some irritation to the left lower gums she wants to have assessed as well. No trouble breathing or swallowing. No fevers. No nausea orvomiting. [facility] Medical History Hx of migraines Home Medications cyclobenzaprine 10 mg tablet 10 mg PO QHS PRN PRN Muscle Spasm #5 TABLETS 11/22/20 [Rx Last Taken Unknown] hydrocodone-acetaminophen 5-325mg 5mg-325mg 1 tab PO Q6H PRN PRN Pain 3 days #10TABLETS 11/22/20 [Rx Last Taken Unknown] amoxicillin 875 mg-potassium clavulanate 125 mg tablet 1 tab PO BID #20 tabs 04/15/22 [Rx Last Taken Unknown] hydrocodone-acetaminophen 5-325mg 5mg-325mg 1 tab PO Q6H 3 days #12 TABLETS 04/15/22 [Rx Last Taken Unknown] Allergy/AdvReac Type Severity Reaction Status Date / Time No Known Allergies Allergy Verified 04/15/22 00:06 Social History Smoking Status: Never smoker ROS ROS ED Constitutional Constitutional ED: Denies chills, fever(s) or sweats Eyes Eyes: Denies blurry vision or change in vision ENT ENT ED: Reports other Details: Dental pain ; Denies ear pain Cardiovascular Cardiovascular: Denies chest pain, palpitations or racing heartbeat Respiratory/Chest Respiratory/Chest: Denies cough, dyspnea or sputum Gastrointestinal Gastrointestinal: Denies abdominal pain, constipation, diarrhea, nausea or vomiting Genitourinary Genitourinary ED: Denies dysuria, hematuria or urinary frequency Musculoskeletal Musculoskeletal: Denies arthralgias, myalgias or neck pain Integumentary Denies abscess, Abrasions or rash Neurologic Neurologic: Denies headache(s), paresthesias or weakness Psychiatric Psychiatric: Denies anxiety, depression, suicidal ideation or suicidal thoughts Endocrine Endocrinology: Denies polydipsia or polyuria EXAM Physical Exam Const Vital Signs: 04/15/22 00:03 Temperature 98.0 F Temperature Source Temporal Pulse Rate 72 Respiratory Rate 16 Blood Pressure 141/89 H Blood Pressure Mean 106 Pulse Ox 100 Oxygen Delivery Method Room Air Positive well nourished General Appearance ED: NAD HEENT normocephalic Face and Sinus: facial edema right Nose: external nose normal Mouth ED: Yes lips normal, Yes tongue normal, Yes salivary gland normal, No drooling, No trismus and No restricted motion Mouth: lips normal, tongue normal, salivary gland normal, No drooling, No trismus and No restricted motion Teeth and Gingiva: abnormal tooth and associated gingiva Positive for tenderness(Tooth #15 tender to percussion.) and gingiva abnormal Positive for gingival edema (Small area of edema located adjacent to tooth #35. No fluctuance. No drainage.) Eyes PERRL Neck no lymphadenopathy and supple General: normal visual inspection; Negative for anterior neck swelling or submandibular swelling Resp normal respiratory effort Neuro oriented x3 and CN's II-XII intact bilaterally Sensorium / Orientation: alert Motor Exam: strength 5/5 throughout Psych mental status grossly normal MDM MDM MDM Narrative Medical decision making narrative: Patient with dental pain. I suspect she has an apical infection at tooth #15. The gingiva around this area looks looks okay however. The area of concern on the gingiva is adjacent to tooth #35. There is no percussion tenderness to thistooth. There is a small area which is red and tender but without fluctuance. We will start the patient on Augmentin. She is also given [place] for pain. Return precautions discussed. Impression: 1. Dental infection 2. Gingivitis Discharge Plan Triage Chief Complaint: Dental ED Provider: Bruce Mercado Dx/Rx/DC Orders Instructions: ED Dental Pain Prescriptions: New amoxicillin-pot clavulanate 875-125 mg tablet 1 tab PO BID Qty: 20 0RF hydrocodone-acetaminophen 5-325 mg tablet 1 tab PO Q6H 3 Days Qty: 12 0RF No Action cyclobenzaprine [cyclobenzaprine] 10 MG tablet 10 mg PO QHS PRN PRN (Reason: Muscle Spasm) Qty: 5 0RF hydrocodone-acetaminophen [hydrocodone-acetaminophen] 1 TABLET tablet 1 tab PO Q6H PRN PRN (Reason: Pain) 3 Days Qty: 10 0RF Stand Alone Forms: ED Work / School Excuse Primary Care Provider: Jett Burgos Referrals: Jett Burgos DO [Primary Care Provider] - Disposition Disposition: Home, Self Care What to do if you have Problems For any increased pain, shortness of breath, bleeding, nausea or vomiting, chestpain, or any unexpected problems, contact your Primary Care Provider. Call [facility] ([phone]) or report to the closest Emergency Room. Call 911 if necessary. 04/15/22131 <Electronically signed by Bruce Mercado DO> Cosigner Signature (if applicable): CC: Dr. Jett Burgos DO ~ Signed [facility] Work Phone: Evaluation note* Diagnosis Sore throat- Primary Acute pharyngitis Chronic tonsillar hypertrophy Hypertrophy of tonsils alone Acute cough Sinus pressure Other diseases of nasal cavity and sinuses Neck pain Cervicalgia Injury of neck, subsequent encounter documented in this encounter [facility] noteNo assessment information availableWSelect Medical Special[facility] Work Phone: Evaluation note* Diagnosis Acute wrist pain, right- Primary documented in this encounter [facility] note* Diagnosis Acute wrist pain, right documented in this encounter [facility] note* Diagnosis Worsening headaches- Primary Headache Migraine headache Migraine, unspecified, without mention of intractable migraine without mention of status migrainosus 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 Migraine with aura, with intractable migraine, so stated, without mention of status migrainosus documented in this encounter [facility] note* Diagnosis Migraine headache Migraine, unspecified, without mention of intractable migraine without mention of status migrainosus documented in this encounter [facility] note* Diagnosis Acute wrist pain, right documented in this encounter [facility] note* Diagnosis Acute right ankle pain documented in this encounter [facility] note* Diagnosis Injury of right hand, initial encounter- Primary Closed nondisplaced fracture of proximal phalanx of right thumb, initial encounter Injury of right hand, initial encounter documented in this encounter [facility] note* Diagnosis Injury of right hand, initial encounter [facility] Additional Instructions Thank you for trusting us with your care today! Please take Tylenol (2 pills, 650 mg), ibuprofen (2 pills, 400 mg) every 6 hours as needed for pain and fever control. Please return to the emergency department if your symptoms change or worsen. Specifically return if develop chest pain, palpitations, worsening shortness of breath, swelling in your legs, if you lose consciousness. Please follow with your primary care physician for further outpatient evaluation and management.[facility] Work Phone: Reason for referral (narrative)* Diagnostic Procedure Only (Urgent) - Closed Specialty Diagnoses / Procedures Referred By Lisa piedra Referred To Contact XR IMAGING Diagnoses Acute wrist pain, right Procedures XR WRIST GENERAL 3V PA/LAT/OBL RIGHT RADEX WRIST COMPLETE MINIMUM 3 VIEWS Milad Montiel MD [address] [facility] [place] [address] [place] [address] Referral ID Status Reason Start Date Expiration Date V isits Requested Visits Authorized [id number] Closed Auto-Generate d Referral 10/03/2022 11/02/2023 1 1 [facility] for referral (narrative)* Diagnostic Procedure Only (Urgent) - Closed Specialty Diagnoses / Procedures Referred By Contac t Referred To Contact XR IMAGING Diagnoses Acute right ankle pain Procedures XR ANKLE GENERAL 3V AP/LAT/OBL RIGHT RADEX ANKLE COMPLETE MINIMUM 3 VIEWS Janene Kirkpatrick APRN.AGRICULTURAL TECHNICIAN [address] [place] [address] [place] [address] Referral ID Status Reason Start Date Expiration Date V isits Requested Visits Authorized [id number] Closed Auto-Generate d Referral 05/24/2022 06/23/2023 1 1 [facility] for visit Narrative* Diagnostic Procedure Only (Urgent) - Closed Specialty Diagnoses / Procedures Referred By Contac t Referred To Contact XR IMAGING Diagnoses Acute wrist pain, right Procedures XR WRIST GENERAL 3V PA/LAT/OBL RIGHT RADEX WRIST COMPLETE MINIMUM 3 VIEWS Milad Montiel MD [address] [place] [address] [place] [address] Referral ID Status Reason Start Date Expiration Date V isits Requested Visits Authorized [id number] Closed Auto-Generate d Referral 10/03/2022 11/02/2023 1 1 [facility] for visit Narrative* Diagnostic Procedure Only (Urgent) - Closed Specialty Diagnoses / Procedures Referred By Contac t Referred To Contact XR IMAGING Diagnoses Acute right ankle pain Procedures XR ANKLE GENERAL 3V AP/LAT/OBL RIGHT RADEX ANKLE COMPLETE MINIMUM 3 VIEWS Janene Kirkpatrick APRN.AGRICULTURAL TECHNICIAN [address] [place] [address] [place] [address] Referral ID Status Reason Start Date Expiration Date V isits Requested Visits Authorized [id number] Closed Auto-Generate d Referral 05/24/2022 06/23/2023 1 1 [facility] N[facility]* Diagnostic Procedure Only (Urgent) - Closed Specialty Diagnoses / Procedures Referred By Contac t Referred To Contact XR IMAGING Diagnoses Injury of right hand, initial encounter Procedures XR HAND GENERAL 3V PA/LAT/OBL RIGHT RADEX HAND MINIMUM 3 VIEWS Brian Pride APRN.AGRICULTURAL TECHNICIAN [address] [place] [address] Phone: tel: fax: [place] [address] Referral ID Status Reason Start Date Expiration Date V isits Requested Visits Authorized [id number] Closed Auto-Generate d Referral 07/14/2024 08/13/2025 1 1 [facility] Chief Complaint and Reason for Visit Chief Complaint DENTAL Chief Complaint DENTAL nausea, dizziness Chief Complaint Cold symptoms Advance Directives Advance Directive Response Recorded Date/ Time Living Will No April 15, 2022 12:09am Power of Elevator Tender No April 15 12:09am Advance Directive Response Recorded Date/ Time Living Will No May 30, 2022 10:00am Power of Elevator Tender No May 30 10:00am Advance Directive Response Recorded Date/ Time Living Will No January 03, 9:37pm Power of Elevator Tender No January 03, 2023 9:37pm Reason for Referral Specialty Diagnoses / Procedures Referred By Contac t Referred To Contact Orthopedics Diagnoses Acute wrist pain, right Procedures CONSULT TO ORTHOPAEDICS OFFICE/OUTPATIENT NEW HIGH MDM 60-74 MINUTES iMlad Montiel MD [address] [place] [address] Referral ID Status Reason Start Date Expiration Date Visits Requested Visits Authorized [id number] Authorized PCP Requested Referral 10/03/2022 10/03/2023 1 1 Specialty Diagnoses / Procedures Referred By Contac t Referred To Contact XR IMAGING Diagnoses Acute wrist pain, right Procedures XR WRIST GENERAL 3V PA/LAT/OBL RIGHT RADEX WRIST COMPLETE MINIMUM 3 VIEWS Milad Montiel MD [address] [place] [address] [place] [address] Referral ID Status Reason Start Date Expiration Date V isits Requested Visits Authorized [id number] Closed Auto-Generate d Referral 10/03/2022 11/02/2023 1 1 Summary Purpose Family History No Family History Records FoundNo Family History Records Found Additional Source Comments Source Comments (unrecognize d section and content) In the event this informatio n is protected by the Federal Confidentiality of Alcohol and Drug Abuse Patient Records regulations: The Federal rules restrict any use of the information to criminally investigate or prosecute any alcohol or drug abuse patient.[facility] Hospital[facility] the event this information is protected by the Federal Confidentiality of Alcohol and Drug Abuse Patient Records regulations: The Federal rules restrict any use of the information to criminally investigate or prosecute any alcohol or drug abuse patient.[facility] Hospital[facility] the event this information is protected by the Federal Confidentiality of Alcohol and Drug Abuse Patient Records regulations: The Federal rules restrict any use of the information to criminally investigate or prosecute any alcohol or drug abuse patient.[facility] Hospital[facility] the event this information is protected by the Federal Confidentiality of Alcohol and Drug Abuse Patient Records regulations: The Federal rules restrict any use of the information to criminally investigate or prosecute any alcohol or drug abuse patient.[facility] Hospital[facility] the event this information is protected by the Federal Confidentiality of Alcohol and Drug Abuse Patient Records regulations: The Federal rules restrict any use of the information to criminally investigate or prosecute any alcohol or drug abuse patient.[facility] HospitalIn the event this information is protected by the Federal Confidentiality of Alcohol and Drug Abuse Patient Records regulations: The Federal rules restrict any use of the information to criminally investigate or prosecute any alcohol or drug abuse patient.[facility] HospitalIn the event this information is protected by the Federal Confidentiality of Alcohol and Drug Abuse Patient Records regulations: The Federal rules restrict any use of the information to criminally investigate or prosecute any alcohol or drug abuse patient.[facility] HospitalIn the event this information is protected by the Federal Confidentiality of Alcohol and Drug Abuse Patient Records regulations: The Federal rules restrict any use of the information to criminally investigate or prosecute any alcohol or drug abuse patient.[facility] HospitalIn the event this information is protected by the Federal Confidentiality of Alcohol and Drug Abuse Patient Records regulations: The Federal rules restrict any use of the information to criminally investigate or prosecute any alcohol or drug abuse patient.[facility] HospitalIn the event this information is protected by the Federal Confidentiality of Alcohol and Drug Abuse Patient Records regulations: The Federal rules restrict any use of the information to criminally investigate or prosecute any alcohol or drug abuse patient.[facility] HospitalIn the event this information is protected by the Federal Confidentiality of Alcohol and Drug Abuse Patient Records regulations: The Federal rules restrict any use of the information to criminally investigate or prosecute any alcohol or drug abuse patient.[facility] Reason for Visit (unrecogniz ed section and content) Reason Comments Appointment Rescheduled Reason Comments Cough Headache, sore throa t, congestion x 3 days, no fever Reason Comments Wrist Pain right x 09/24-while g sharmilamorris Reason Comments Right wrist pain REF: Dinesh x-ray: Specialty Diagnoses / Procedures Referred By Lisa t Referred To Contact Orthopedics Diagnoses Acute wrist pain, right Procedures CONSULT TO ORTHOPAEDICS OFFICE/OUTPATIENT NEW HIGH MDM 60-74 MINUTES Milad Montiel MD [address] [place] [address] Referral ID Status Reason Start Date Expiration Date V isits Requested Visits Authorized [id number] Closed PCP Requested Referral 10/03/2022 10/03/2023 1 1 Reason Comments Headache Follow up Reason Comments Refill Request NEW PHARMACY IN [facility] ADDED ON MED LIST Reason Comments Trauma Right thumb injury x 1 day Care Teams (unrecognized sec tion and content) Gem Setter Relationship Specialty Start Date End Date Jett Burgos DO [address] [place], [place] [id number] PCP - General Family Practice 05/07/13 Gem Setter Relationship Specialty Start Date End Date Jett Burgos DO [address] [place], [place] [id number] PCP - General Family Medicine 05/07/13 Team Status: Active Member Role Status Dates Dr. Jett Burgos DO Family Provider Active Dr. Jett Burgos DO Primary Care Provider Active Team Status: Inactive Member Role Status Dates Dr. Jett Burgos DO Primary Care Provider Active Dr. Bruce Mercado DO Emergency Provider Active Team Status: Inactive Member Role Status Dates Dr. Jett Burgos DO Primary Care Provider Active Dr. Bruce Mercado , DO Attending Provider, Emergency Provider Active Team Status: Inactive Member Role Status Dates Dr. Jett Burgos DO Primary Care Provider Active Dr. Hunter Campos DO Emergency Provider Active Gem Setter Relationship Specialty Start Date End Date Jett Burgos DO [address] [place], [place] [id number] PCP - General Family Medicine 05/07/13 Gem Setter Relationship Specialty Start Date End Date Jett Burgos DO [address] [place] [address] PCP - General Family Medicine 05/07/13 Team Status: Inactive Member Role Status Dates Dr. Jett Burgos DO Primary Care Provider Active Dr. Gareth Apple MD Emergency Provider Active Gem Setter Relationship Specialty Start Date End Date Jett Burgos DO [address] [place] [address] PCP - General Family Medicine 05/07/13 Gem Setter Relationship Specialty Start Date End Date Jett Burgos DO [address] [place] [address] PCP - General Family Medicine 05/07/13 Gem Setter Relationship Specialty Start Date End Date Jett Burgos DO [address] [place] [address] PCP - General Family Medicine 05/07/13 Gem Setter Relationship Specialty Start Date End Date Jett Burgos DO [address] [place] [address] PCP - General Family Medicine 05/07/13 Ramya Avilez, PHYSICIAN GENERAL PRACTICE.AGRICULTURAL TECHNICIAN [address] [place] [address] Deputy Chief Magistrate Family Medicine 01/14/24 Gem Setter Relationship Specialty Start Date End Date Jett Burgos DO [address] [place] [address] PCP - General Family Medicine 05/07/13 Ramya Avilez, PHYSICIAN GENERAL PRACTICE.AGRICULTURAL TECHNICIAN [address] [place] [address] Deputy Chief Magistrate Family Medicine 01/14/24 Goals (unrecognized section and content) Goals may be documented in a n alternate sectionGoals may be documented in an alternate sectionGoals may be documented in an alternate section INFORMATION SOURCE (unrecogn ized section and content) DATE CREATED AUTHOR [facility]05/2023 [facility] [place] DATE CREATED AUTHOR AUTHOR'S ORGANIZ ATION 07/15/2024 [facility] FOR RECORDS PERTAINING TO PATIENTS WHO ARE OR HAVE BEEN ENROLLED IN A CHEMICAL DEPENDENCY/SUBSTANCEABUSE PROGRAM, SOME INFORMATION MAY BE OMITTED. This clinical summary was aggregated from multiple sources. Caution should be exercised in using it in the provision of clinical care. This summary normalizes information from multiple sources, and as a consequence, information in this document may materially change the coding, format and clinical context of patient data. In addition, data may be omitted in some cases. CLINICAL DECISIONS SHOULD BE BASED ON THE PRIMARY CLINICAL RECORDS. [employer] provides no warranty or guarantee of the accuracy or completeness of information in this document.
[2024-07-17 04:56] VITALS: BP 148/91; PULSE 64; RESP 16; TEMP 37; O2SAT 98
== END 2024-07-17 04:57 | disposition home or self-care (01) ==
LOC: ED 04:49
PROVIDERS: Emergency Provider Emergency Medicine; PCP Student in an Organized Health Care Education/Training Program; Visit Provider Emergency Medicine
DX: T16.2XXA Foreign body in left ear, initial encounter (principal); W44.8XXA Other foreign body entering into or through a natural orifice, initial encounter
CPT/HCPCS: 99282